=== PATIENT | male | born 1945 | race Caucasian/White ===

== ENCOUNTER 2018-11-24 10:08 | Emergency (ER) | payer MEDICARE, OTHER ==
[~2018-11-24] VITALS: Ht 172.7 cm; Wt 93.9 kg
--- NOTE | 2018-11-25 07:03 | EKG ---
[facility] [address] [place], [place] [address] Signed Atrial fibrillation with rapid ventricular response Abnormal ECG No previous ECGs available Confirmed by FATOUMATA DAVIS MD ([id number]) on 11/25/2018 7:03:13 AM Electronically Signed By: FATOUMATA DAVIS MD 11/25/18 0703 PATIENT NAME: BLANK LIZAMA PRAKASH Electrocardiogram DATE OF : 41 PHYSICIAN: FATOUMATA DAVIS MD REPORT #: [id number] REPORT IS CONFIDENTIAL AND NOT TO BE RELEASED WITHOUT AUTHORIZATION
== END 2018-11-24 15:32 | disposition home or self-care (01) ==
LOC: ED 10:08
DX: I48.91 Unspecified atrial fibrillation (principal); Z87.891 Personal history of nicotine dependence
CPT/HCPCS: 71045; 80053; 83735; 83880; 84484; 85025; 93005; 93010; 96374; 96376; 99285-25

== ENCOUNTER 2018-11-27 11:44 | Inpatient (IN) | payer MEDICARE, OTHER ==
[~2018-11-27] VITALS: Ht 172.7 cm; Wt 89.3 kg
--- OUTSIDE RECORDS SUMMARY | 2018-11-27 12:04 | XMS ---
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 Georgina has no Care Guidelines for this patient. Lety VISIT COUNT (12 MO.) [address] [facility] TOTAL 2 NOTE: Visits indicate total known visits. ED/C VISIT TRACKING (12 MO.) 11/27/2018 11:44 [facility] TYPE: Emergency COMPLAINT: - SOB 11/24/2018 10:08 [facility] TYPE: Emergency COMPLAINT: - BLOOD PRESSURE PROBLEM INPATIENT VISIT TRACKING (12 MO.) No inpatient visits to display in this time frame [email or web address]
--- NOTE | 2018-11-27 15:30 | NUR ---
PT ARRIVED TO ROOM 114 FORM E.D., PT ALERT AND ORIENTED AMBULATED STAND BY ASSIST FROM STRETCHER TO BATHROOM AND BACK TO HOSPITAL BED
--- NOTE | 2018-11-27 16:47 | NUR ---
RN INTRODUCED CHF EDUCATION FOLDER TO PT. DISCUSSED "STOPLIGHT" FRIDGE MAGNET OF SYMPTOMS. PT VERBALIZED THAT HE "DIDN'T LIKE BEING IN THE RED!" RN REINFORCED TEACHING THAT WE WOULD BE TEACING ABOUT CHF DURING HIS ADMISSION.
--- NOTE | 2018-11-27 17:52 | NUR ---
PATIENT UP TO BATHROOM AND BACK TO BED, SBA. IN ROOM. CALL LIGHT IN REACH. NO FURTHER NEEDS AT THIS TIME.
--- NOTE | 2018-11-27 19:38 | NUR ---
REPORT RECEIVED, PT RESTING IN BED, AOX4, APPROPRIATE, NO C/O LIGHT HEADEDNESS OR DIZZINESS, ON TELE 10, PT'S SCHEDULED MEDS GIVEN PER EMAR, EDUCATION PROVIDED TO PATIENT AND FAMILY REGARDING MEDICATIONS. NO REQUESTS AT THIS TIME, CALL LIGHT WITHIN REACH. FALL PRECAUTIONS IN PLACE.
--- NOTE | 2018-11-27 20:35 | NUR ---
PT TRANSFERRED TO CCU PER DR. DOW DUE TO PT'S HR RELATED TO AFIB/RVR, REPORT GIVEN TO LUCAS PATEL IN CCU, QUESTIONS ANSWERED.
--- NOTE | 2018-11-27 20:45 | NUR ---
PT TO CCU PER BED FOR AFIB RVR. HAD RECIEVED ORAL MEDS EARLY PER DR DOW. PT IS ALERT, ORIENTED X3 NO C/O. ACCOMPANIED BY . HR NOW STARTING TO RESPOND TO MEDS WILL HOLD CARDIZEM GTT FOR NOW, AND CONT TO MONITOR HR. LUNGS HAVE SCATTERED EXP WHEEZES. NO SOB AT THIS TIME.
--- NOTE | 2018-11-27 22:10 | NUR ---
HR NOW 88-90'S. RESTING IN BED.
--- NOTE | 2018-11-28 00:20 | NUR ---
AWAKENS EASILY. ASSESSMENT DONE. AMB TO BR TO VOID, HR UP TO 128 WITH THIS ACTIVITY. NO SOB.
--- NOTE | 2018-11-28 01:43 | NUR ---
MEDS GIVEN. INSTRUCTED TO SIT FOR A FEW MOMENTS AT EDGE OF BED BEFORE GETTING UP MEDS MAY DECREASE BP AND COULD CAUSE DIZZYNESS.
--- NOTE | 2018-11-28 02:46 | NUR ---
PT SLEEPING SOUNDLY, SATS DEC TO 79, RT HERE AND IN TO CHECK PT. RT NOTED PT TO HAVE SLEEP APNEA. PT AWAKENED ON OWN AND SATS UP TO 90'S.
--- NOTE | 2018-11-28 04:32 | NUR ---
SLEEPING AT THIS TIME. CONT TO HAVE EPISODES OF APNEA.
[2018-11-28] MEDS ORDERED: METOPROLOL SUCC50 MG PO (07:08)
--- NOTE | 2018-11-28 07:09 | NUR ---
Patient newly diagnosed AFib and started on metoprolol succinate *Med rec completed with pharmacy records and interview with patient and his
--- NOTE | 2018-11-28 07:18 | NUR ---
RESTING IN BED. REPORT TO DAY SHIFT.
--- NOTE | 2018-11-28 07:30 | NUR ---
RECIEVED REPORT ON pt. pt BACK TO BED. BREAKFAST ORDERED NO FURTHER REQUESTS AT THIS TIME. CALL LIGHT WITHIN REACH.
--- NOTE | 2018-11-28 08:03 | NUR ---
ASSESSMENT AND MEDICATIONS DUE. ASSESSMENT DONE. pt ALERT AND ORIENTED. DENIES PAIN AT THIS TIME. MEDICATIONS GIVEN (SEE MAR). pt VERBALIZED WHAT MEDICATIONS WERE FOR. BREAKFAST ARRANGED. CALL LIGHT WITHIN REACH. NO FURTHER REQUESTS AT THIS TIME.
--- NOTE | 2018-11-28 08:43 | NUR ---
CLEARED BREAKFAST TRAY. NO REQUESTS AT THIS TIME. CALL LIGHT WITHIN REACH.
--- NOTE | 2018-11-28 09:03 | NUR ---
MEDICATION GIVEN (SEE MAR). pt VERBALIZED UNDERSTANDING OF MEDICATION SIDE EFFECTS, WILL CALL WHEN NEEDING TO USE TOILET. CALL LIGHT WITHIN REACH. NO REQUESTS AT THIS TIME.
--- NOTE | 2018-11-28 09:45 | NUR ---
CALL LIGHT ON. AMBULATED TO TOILET AND BACK TO BED. CALL LIGHT WITHIN REACH. HR ELEVATED TO 120'S WHEN AMBULATING.
--- NOTE | 2018-11-28 10:23 | NUR ---
CALL LIGHT ON. AMBULATED TO TOILET AND BACK TO BED. CALL LIGHT WITHIN REACH. NO REQUESTS AT THIS TIME.
--- NOTE | 2018-11-28 10:51 | NUR ---
CALLED [facility] FOR RESULTS OF ECHO. TYE REPORTED THAT THE ECHO HAS NOT BEEN RESULTED YET, SEND RESULTS WHEN READY.
--- NOTE | 2018-11-28 11:13 | NUR ---
CALL LIGHT ON. pt AMBULATED TO TOILET AND BACK TO BED. CALL LIGHT WITHIN REACH. pt GAVE PERMISSION FOR DAUGHTER TO RECEIVE UPDATES CONCERNING HIS CONDITION. DAUGHTER'S NAME IS REDDY BETANCOURT, pt UNSURE OF LAST NAME SPELLING.
--- NOTE | 2018-11-28 11:48 | NUR ---
LUNCH ORDERED. CALL LIGHT WITHIN REACH.
--- NOTE | 2018-11-28 12:10 | NUR ---
ASSESSMENT DONE. CRACKLES HEARD IN BASES. NO OTHER CHANGES FROM PRIOR ASSESSMENT. DENIES PAIN. TRANSFERRED TO MED/SURG UNIT.
--- NOTE | 2018-11-28 12:24 | NUR ---
PT RECEIVED FROM CCU. PT SITTING IN CHAIR. PT ON ROOM AIR, LUNG SOUNDS CLEAR, SOB WITH EXERTION. PT SALINE LOCKED. PT TOLERATING CARDIAC DIET, BOWEL TONES ACTIVE, DENIES NAUSEA. PT WITH EMEA TO BLE 2+, DENIES NUMBNESS, CMS INTACT. VSS. PT DNIES OTHER NEEDS AT THIS TIME. ORIENTED TO ROOM. CALL LIGHT WITHIN REACH.
--- NOTE | 2018-11-28 13:30 | NUR ---
PT SITTING IN CHAIR. PT PROVIDED WITH SCHEDULED LASIX, DILTIAZEM AND METOPROLOL. PT DENIES OTHER NEEDS AT THIS TIME.
--- NOTE | 2018-11-28 14:45 | NUR ---
NOTFIED THAT PT HR CONTINUES TO BE ELEVATED AND IRREGULAR, 110-130'S, ORDER TO CONTINUE TO MONITOR.
--- NOTE | 2018-11-28 15:21 | EKG ---
[facility] [address] [place], [place] [address] Signed Atrial fibrillation with rapid ventricular response Abnormal ECG When compared with ECG of 24-NOV-2018 10:33, No significant change was found Confirmed by PRABHJOT DOW DO ([id number]) on 11/28/2018 3:21:48 PM Electronically Signed By: PRABHJOT DOW DO 11/28/18 1521 PATIENT NAME: ALDABLANK RANDLAL Electrocardiogram DATE OF : 41 PHYSICIAN: PRABHJOT DOW DO REPORT #: [id number] REPORT IS CONFIDENTIAL AND NOT TO BE RELEASED WITHOUT AUTHORIZATION
--- NOTE | 2018-11-28 15:25 | EKG ---
[facility] [address] [facility] [place], [place] [address] Signed Atrial fibrillation with rapid ventricular response Abnormal ECG When compared with ECG of 27-NOV-2018 11:54, (Unconfirmed) No significant change was found Confirmed by PRABHJOT DOW DO ([id number]) on 11/28/2018 3:24:51 PM Electronically Signed By: PRABHJOT DOW DO 11/28/18 1525 PATIENT NAME: BLANK LIZAMA PRAKASH Electrocardiogram DATE OF : 41 PHYSICIAN: PRABHJOT DOW DO REPORT #: [id number] REPORT IS CONFIDENTIAL AND NOT TO BE RELEASED WITHOUT AUTHORIZATION
--- NOTE | 2018-11-28 16:15 | NUR ---
PT SHOWERED. PT GIVEN CLEWAN GOWN AND SOCKS
--- NOTE | 2018-11-28 17:13 | NUR ---
PT SITTING IN CHAIR. PT PROVIDED DILTIAZEM AND WARFARIN PER ORDER. EDUCATED ON PURPOSE OF MEDICATIONS RELATED TO NEW DIAGNOSIS OF AFIB. PT DENIES OTHER NEEDS AT THIS TIME. DINNER AT BEDSIDE.
--- NOTE | 2018-11-28 17:35 | NUR ---
PT RECEIVED FROM CCU. PT ON ROOM AIR, LUNG SOUNDS CLEAR. PT ON TELE #5, AFIB, PT WITH HR UP TO 140'S WITH ACTIVITY, DILTIAZEM AND METOPROLOL ADJUSTED. PT INDEPENDENT IN ROOM. IV LASIX X2, VOIDING QS. PT TOLERATING CARDIAC DIET WITH 1800 ML FLUID RESTRICTION. PT WITH EDEMA TO BLE, 2+. SALINE LOCKED.
--- NOTE | 2018-11-28 19:05 | NUR ---
SHIFT REPORT RECEIVED. PATIENT RESTING IN RECLINER. DENIES ANY NEEDS AT THIS TIME. CALL LIGHT IN REACH.
--- NOTE | 2018-11-28 20:30 | NUR ---
PATIENT PROVIDED WITH EVENING MEDICATIONS. PATIENT RESTING IN BED. VS DONE. PATIENT'S HR IRREGULAR 80-90'S. TELE IN PLACE. PATIENT DENIES CHEST PAIN OR SOB. LUNGS ARE MOSTLY CLEAR, SOME FINE CRACKLES IN RLL. TOLERATING ROOM AIR. 2+ EDEMA IN NGA LOWER EXTREMITIES FROM MID PANTOJA DOWN. EXCORIATION ON NGA LOWER EXTREMITIES NOTED, PATIENT STATES IT HAS IMPROVED SLIGHTLY. NO DRAINAGED NOTED, OPEN TO AIR. CMS INTACT. PATIENT DENIES ANY NEEDS AT THIS TIME. CALL LIGHT IN REACH.
--- NOTE | 2018-11-29 00:09 | NUR ---
PATIENT HR IN 70'S AT REST. PATIENT APPEARS TO BE SLEEPING SOUNDLY. RR 18. CALL LIGHT IN REACH.
--- NOTE | 2018-11-29 01:45 | NUR ---
PATIENT CALLED AFTER GETTING UP TO USE THE BATHROOM. VS DONE AND SCHEDULED MEDS PROVIDED. PATIENT DENIES ANY NEEDS. CALL LIGHT IN REACH.
--- NOTE | 2018-11-29 04:39 | NUR ---
PATIENT APPEARS TO BE SLEEPING SOUNDLY. RR 20. TELE, HR 60-70'S IRREGULAR.
--- NOTE | 2018-11-29 06:22 | NUR ---
PATIENT SLEPT THROUGHOUT SHIFT. DENIES PAIN OR SOB. TELE 5, HR IRREGULAR 60-80'S AT REST. INDEPENDENT IN ROOM. URINE OUTPUT QS. VS STABLE. 2+ EDEMA NOTED IN NGA LOWER EXTREMITIES. ENCOURAGED TO ELEAVTE TOLERATED. HEART HEALTHY DIET WITH 1800ML FLUID RESTRICTION.
--- NOTE | 2018-11-29 07:10 | NUR ---
BEDSIDE HANDOFF REPORT RECEIVED FROM VISITOR SERVICES TECHNICIAN RN. PT AMBULATING IN ROOM, TELE #5, HR 90S-100'S. PT DENIES NEEDS AT THIS TIME.
--- NOTE | 2018-11-29 08:30 | NUR ---
PATIENT IS IN THE BATHROOM SHAVING AND BRUSHING HIS TEETH. WARM WASH CLOTH OFFERED AND SHOWER OFFERED. PATIENT REFUSED SHOWER. CALL LIGHT IN REACH NO FURTHER NEEDS AT THIS TIME.
--- NOTE | 2018-11-29 09:00 | NUR ---
PT COMPLETED WITH ZE AMAYA. PT SITTING ON EDGE OF BED. PT DENIES PAIN. LUNG SOUNDS CLEAR, PT ON ROOM AIR. PT ON TELE #5, HR 90-110'S, IRREGULAR. PT DENIES NAUSEA, BOWEL TONES ACTIVE, TOLERATING CARDIAC DIET WITH FLUID RESTRICTION. PT INDEPENDENT IN ROOM. CMS INTACT, EDEMA 1-2+, IMPROVED FROM YESTERDAY, CONCENTRATED TO FEET AND ANKLES. IV LASIX GIVEN. PT DENIES OTHER NEEDS FOR THE DAY. DISCUSSED PLAN OF CARE FOR THE DAY.
--- NOTE | 2018-11-29 09:05 | NUR ---
P.O. medications given per this RN, and student nurse. Medications explained to the patient, including side effects such as dizziness. Pt verbalizes understanding of need for cardiac medications related to his heart rate being "too high" and the "top of my heart not working with the bottom of my heart". Pt able to answer questions appropriately, and can take p.o. medications indedepndently without dificulty in swallowing. Pt also states that he would like his to have the medication instructions as she is the one who will be helping him at home. This RN and the SN will attempt to come back in the room and do more medication education when presents to the hospital.
--- NOTE | 2018-11-29 11:00 | NUR ---
MET WITH PATIENT AND DR DWO IN ROOM. PATIENT LIVES WITH , IS NORMALLY INDEPENDENT AND PLANS TO RETURN HOME AT DISCHARGE. PATIENT IS CURRENTLY IN PROCESS OF CHANGING PCP TO DR DE LA PAZ AND HAS FIRST APPT December. HE DOES HAS APPT WITH DR LEVI 12/11/18 AND WILL KEEP THAT APPT FOLLOW UP FOR THIS HOSPITALIZATION AND SO HE CAN HAVE COVERAGE FOR COUMADIN CLINIC ORDERS. PATIENT DENIES ANY PROBLEMS WITH AMBULATION, DIZZINESS OR SOB. PATIENT DID WALK IN HALLS TODAY AND HAD NO ISSUES. DR DOW DISCUSSED DIAGNOSIS, PLAN AND MEDICATIONS. QUESTIONS ANSWERED. PATIENT HAD HIS ADULT DAUGHTER ON SPEAKER PHONE DURING THIS AND HER QUESTIONS WERE ANSWERED ALSO. DISCHARGE HOME IS ANTICIPATED, DISCUSSED POSSIBLE FOLLOW UP WITH CASE MANAGEMENT THROUGH CHW FROM CLINIC. PATIENT IS WILLING TO DO THIS BY PHONE AFTER DISCHARGE. REFERRAL MADE. NO FURTHER CONCERNS OR QUESTIONS.
--- NOTE | 2018-11-29 11:40 | NUR ---
PT RESTING IN BED. PT GIVEN PO LISINOPRIL AND POTASSIUM PER ORDER. PT WITHOUT BM SINCE TUESDAY, NIO ORDER FOR MAG CITRATE GIVEN. PT DENIES OTHER NEEDS AT THIS TIME. LUNCH AT BEDSIDE.
--- NOTE | 2018-11-29 14:54 | NUR ---
PATIENT ON COUMADIN WHICH IS NEW FOR HIM. I STOPPED IN HIS ROOM TO PROVIDE EDUCATION FOR DIET WHILE TAKING COUMADIN. HIS WAS PRESENT. PATIENT DOES NOT EAT ANY HIGH VITAMIN K FOODS (LEAFY GREENS). HE LIKES ICEBERG LETTUCE. HE TAKES A MVI FOR MEN OVER 50 BUT DOESN'T TAKE IT EVERYDAY. I RECOMMENDED HE DOES TAKE IT EVERYDAY. HANDOUT PROVIDED. THEN WE DISCUSSED WAYS TO EAT A LOWER SODIUM DIET. HE LIKES FRIED ONIONS, POTATOES AND EGGS FOR BREAKFAST WITH GARLIC SALT. I SUGGESTED HE USE GARLIC POWDER INSTEAD. HE SAID HE CAN DO THAT. THEN I MENTIONED EATING LESS SAUSAGE, SAUSAGE GRAVY, BOLOGNA, AND HOT DOGS AND HE SAID HE LOVES THESE FOODS AND DOESN'T WANT TO STOP EATING THEM. HIS DOES ADVERTISING TRAFFIC MANAGER AT HOME, THEY DON'T EAT OUT REGULARLY. SHE HAS DIABETES AND COOKS VEGGIES BUT PATIENT EATS WHAT HE WANTS. I EXPLAINED WHY EATING A LOWER SODIUM DIET IS IMPORTANT, ESPECIALLY IF HE DOES NOT WANT TO END UP BACK IN HERE. PROVIDED A HANDOUT LOW-SODIUM NUTRITION THERAPY WITH FOODS RECOMMENDED AND FOODS NOT RECOMMENDED, PROVIDED A HANDOUT LOW-SODIUM FLAVORINGS, AND LOW-SODIUM GROCERY LIST. PATIENT WON'T BE 100% COMPLIANT, BUT I PROVIDED SOME SIMPLE SUGGESTIONS THAT HE CAN DO RIGHT AWAY TO DECREASE HIS SODIUM INTAKE. MY NAME AND OFFICE NUMBER PROVIDED IN CASE FURTHER QUESTIONS ARISE.
--- NOTE | 2018-11-29 16:19 | NUR ---
PT VOIDIED IN HAT, DARK PINK CLOUDY URINE. MD NOTIFIED, IORDER TO COLLECT UA AND TO DISCUSS COUMADIN DOSE WITH PHARMACIST BEFORE ADMINISTERING EVENING DOSE.
--- NOTE | 2018-11-29 17:00 | NUR ---
DISCUSSED COUMADIN DOSE WITH PHARMACIST SCOTTY, PHARMACIST STATES THAT 5 TO 10 MG OF COUMADIN IS SAFE FOR INR OF 1.1. DISCUSSED WITH DR. DOW, AWAITING URINE SAMPLE, OK TO GIVE 10 MG COUMADIN.
--- NOTE | 2018-11-29 17:37 | NUR ---
PT ALERT/ORIENTED. PT ON ROOM AIR, LUNG SOUNDS CLEAR. PT ON TELE #5, AFIB. PT TOLERATING CARDIAC DIET WITH FLUID RESTRICTION. PT WITH EDEMA BLE 1-2+ IN ANKLES, IMPROVING. PT SALINE LOCKED. INDEPENDENT IN ROOM. PT VOIDING QS, BLOOD IN URINE THIS EVENING, AWAITING URINE SAMPLE. PT HAD BM TODAY.
--- NOTE | 2018-11-29 19:30 | NUR ---
PATIENT IS RESTING IN BED WATCHING TV, GETTING BEDSIDE REPORT FROM DAY SHIFT NURSE.
--- NOTE | 2018-11-29 19:32 | NUR ---
PATIENT IS IN BED SETTING UP WATCHING TV. NO NEEDS AT THIS TIME.
--- NOTE | 2018-11-29 22:25 | NUR ---
PATIENT CONTINUES TO BE AIN A PLEASANT MOOD IS WATCHING THE NEW WITH NO NEEDS AT THIS TIME.
--- NOTE | 2018-11-30 00:30 | NUR ---
PATIENT IS SITTING IN HI-FOWLERS POSITION, GENTLY SNORING, IN NO DISTRESS, EYES CLOSED.
--- NOTE | 2018-11-30 01:25 | NUR ---
PATIENT'S STATUS IS UNCHANGED, STILL HAS EYES CLOSED IN HIGH ANGEL'S POSITIOON GENTLY SNORING.
--- NOTE | 2018-11-30 05:36 | NUR ---
PATIENT REMAINS RESTING QUUIETLY IN FOWLERS POSITION SNORING LIGHTLY. BREATHS 16-18 A MINUTE.
--- NOTE | 2018-11-30 05:38 | NUR ---
PATIENT APPEARS TO HAVE HAD A GOOD NIGHT AND RESTED MOST OF THE EVENING. PATIENT HAS BEEN IN GOOD HUMOR AND IS CURRENTLY GETTING HIS BLOOD DRAWN BY LAB.
--- NOTE | 2018-11-30 07:24 | NUR ---
Certified Heart Failure Nurse Notes: Late entry for visit with patient 11/29/18 Diagnosis: Atrial fibrillation and CHF Boxing Inspector- referral to be made upon DC PCP: Patient states he is establishing with Dr. [facility] and has an appointment already made for December 06 or . EF 35-40% Ansih Inhibitor and Beta Jairo ordered Admit Wt.: 220 lb Today's Wt.: 197 lb Admit BNP: 432 Social support system: Lives with spouse and dog Xavier. Weight monitoring: Scale present in home. Discussed how to weigh daily/ identify when to notify PCP and importance of symptom monitoring. Transportation mode: has own vehicle Diet: Spouse does majority of cooking and the shopping. Has had education today with [facility] stripe marker. Usual physical activity: Yard work and some shopping. Does not participate in any routine cardiovascular exercise. He is concerned that he won't be able to return to routine, discussed initiating progressive walking to build strength. Medication routine: Patient did not offer information on this. Given 7day pill box today to utilize at home. Significance of taking medications emphasized. Has been counseled on minimizing/avoiding use of NSAIDs Tobacco: former Advanced directive: Does not currently have. Patient advised to discuss with PCP. Recommendations prior to discharge: Document ambulation oxygen saturations prior to discharge Absence of orthostatic hypotension. DC weight and BNP less than admit Follow up appointment within 7 days of DC Barriers to self-care include: Knowledge deficit Follow-up plans: Post DC F/u Call . Schedule patient for OP heart failure education PRN Teaching materials have been taken home by spouse. Given [facility] contact information
--- NOTE | 2018-11-30 08:40 | NUR ---
PT SITTING ON EDGE OF BED, JUST RETURNED FROM BATHROOM. PT ON ADELE AIR, LUNG SOUNDS CLEAR. PT ON TELE #5, AFIB, HR 110-130'S, CARDIZEM AND METOPROLOL GIVEN. CMS INTACT, 1+ EDEMA IN LEFT ANKLE. PT DENIES NAUSEA, BOWEL TONES ACTIVE, BM TODAY, TOLERATING ACRDAIAC DIET WITH FLUID RESTRICTION. PT INDEPENDENT IN ROOM. PT CONTINUES TO HAVE CLOUDY PINK URINE, DISCUSSED UTI WITH PT. DISCUSSED PLAN OF CARE FOR THE DAY. PT DENIES OTHER NEEDS AT THIS TIME. PT HOPING TO DC TODAY.
--- NOTE | 2018-11-30 09:43 | NUR ---
PATIENT SITTING UP IN BED WATCHING TV. VITAL SIGNS AND I&O DONE.CALL LIGHT WITHIN REACH. NO OTHER NEEDS AT THIS TIME
[2018-11-30] MEDS ORDERED: CIPROFLOXACIN500 MG PO (12:13)
[2018-11-30] MEDS ORDERED: WARFARIN SODIUM5 MG PO (12:15)
[2018-11-30] MEDS ORDERED: METOPROLOL SUC100 MG PO (12:16)
[2018-11-30] MEDS ORDERED: FUROSEMIDE40 MG PO (12:17)
[2018-11-30] MEDS ORDERED: LISINOPRIL2.5 MG PO (12:17)
[2018-11-30] MEDS ORDERED: DILT-XR120 MG PO (12:17)
[2018-11-30] MEDS ORDERED: ASPIR 8181 MG PO (12:18)
[2018-11-30] MEDS ORDERED: TOPROL XL50 MG PO (13:21)
--- NOTE | 2018-11-30 14:04 | NUR ---
IN PT'S RM, PT IN BM, AND SON IN RM. PT CAME OUT-STATED HE IS READY TO GO. EXPLAINED DC PROCESS, ALL STATED THAT THEY ARE PLEASED WITH CARE THEY HAVE RECEIVED FROM [facility]. EXTENDED A BLESSING, WILL FOLLOW NEEDED
== END 2018-11-30 13:40 | disposition home or self-care (01) | DRG 291 ==
LOC: ED 11:44 → MS 15:07 → CCU 20:38 → MS 11-28 12:15
PROVIDERS: ADMIT Student in an Organized Health Care Education/Training Program
DX: I11.0 Hypertensive heart disease with heart failure (principal); I50.21 Acute systolic (congestive) heart failure; N39.0 Urinary tract infection, site not specified; I48.91 Unspecified atrial fibrillation; I87.8 Other specified disorders of veins; Z66 Do not resuscitate; Z79.899 Other long term (current) drug therapy; Z87.891 Personal history of nicotine dependence
CPT/HCPCS: 36415; 71045; 80048; 80053; 81001; 83735; 83880; 84484; 85025; 85610; 93005; 93010; 93306; 96365; 96375; 96376; 97110; 97116; 97163; 99285-25; J0696; J1940; Q9957

== ENCOUNTER 2019-02-09 17:10 | Inpatient (IN) | payer MEDICARE, OTHER ==
[~2019-02-09] VITALS: Ht 172.7 cm; Wt 80.5 kg
[~2019-02-09 17:10] MED LIST: ASPIR 8181 MG PO; CIPROFLOXACIN500 MG PO; DILT-XR120 MG PO; DILTIAZEM ER120 M2 PO; FUROSEMIDE40 MG PO; LISINOPRIL2.5 MG PO; METOPROLOL SUC100 MG PO; METOPROLOL SUCC50 MG PO; TOPROL XL50 MG PO; WARFARIN SODIUM5 MG PO
--- OUTSIDE RECORDS SUMMARY | 2019-02-09 17:14 | XMS ---
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 Care History Medical/Surgical 11/28/2018 [facility] - Patient is currently established with [facility]. If patient is seen in the ED during business hours. Please contact CHWs at [facility]. Care Recommendation: This patient has had 5 or more Emergency Department visits in the last 12 months.\T\nbsp; Patient requires education on the scope and purpose of the ED as an acute care provider not a Primary Care Provider and should not be utilized for chronic conditions.\T\nbsp; These are guidelines and the provider should exercise clinical judgment when providing care. E.D. VISIT COUNT (12 MO.) 3 [facility] TOTAL 3 NOTE: Visits indicate total known visits. ED/UCC VISIT TRACKING (12 MO.) 02/09/2019 17:11 [facility] TYPE: Emergency COMPLAINT: - DIFFICULTY BREATHING 11/27/2018 11:44 [facility] TYPE: Emergency COMPLAINT: - SOB 11/24/2018 10:08 [facility] TYPE: Emergency COMPLAINT: - BLOOD PRESSURE PROBLEM DIAGNOSES: - Personal history of nicotine dependence - Unspecified atrial fibrillation INPATIENT VISIT TRACKING (12 MO.) 11/27/2018 15:07 [facility] TYPE: Medical Surgical COMPLAINT: - AFID W/RVR DIAGNOSES: - [facility] [place] (current[facility] drug therapy - Do not resuscitate - Urinary tract infection, site not specified - Unspecified atrial fibrillation - Do not resuscitate - Other terminal supervisor (current) drug therapy - Personal history of nicotine dependence - Acute systolic (congestive) heart failure - Personal history of nicotine dependence - Other specified disorders of veins - Other specified disorders of veins - Acute systolic (congestive) heart failure - Urinary tract infection, site not specified - Hypertensive heart disease with heart failure - Hypertensive heart disease with heart failure [email or web address]
--- NOTE | 2019-02-09 21:00 | NUR ---
PT ARRIVED TO UNIT VIA STRETCHER FROM ED. PT ABLE TO SELF TRANSFER TO BED W/O DIFFICULTY. CARDIZEM GTT INFUSING AT 5 MG/HR. PT AAOX4 AND RESPONDING APPROPRIATELY. AFIB ON MONITOR WITH HR 120-130'S. LUNGS CLEAR THROUGHOUT AND MAINTAINING SATURATIONS ON ROOM AIR. BOWEL TONES ACTIVE X4 AND DENIES NAUSEA. NO EDMEA NOTED. PT ORIENTED TO ROOM. EDUCATION ON SAFETY, FALL PREVENTION, MEDICATION, AND PLAN OF CARE.
--- NOTE | 2019-02-09 21:15 | NUR ---
CARDIZEM GTT TITRATED TO 2.5 MG/HR FOR SYSTOLIC LESS THAN 100. WILL CONTINUE TO MONITOR.
--- NOTE | 2019-02-09 23:15 | NUR ---
CARDIZEM GTT TITRATED TO 5 MG/HR AT THIS TIME.
--- NOTE | 2019-02-10 | NUR ---
NO ACUTE CHANGES TO ASSESSMENT. CARDIZEM GTT TITRATED TO 7.5 MG/HR. WILL CONTINUE TO MONITOR.
--- NOTE | 2019-02-10 00:59 | NUR ---
CARDIZEM GTT TITRATED TO 10 MG/HR.
--- NOTE | 2019-02-10 01:49 | NUR ---
po cardizem given. cardizem gtt at 7.5 mg/hr. will continue ro monitor and slowly titrate gtt as tolrated
--- NOTE | 2019-02-10 02:10 | NUR ---
CARDIZEM GTT TITRATED TO 5 MG/HR.
--- NOTE | 2019-02-10 02:34 | NUR ---
CARDIZEM GTT STOPPED AT THIS TIME FOR HR 90'S. WILL CONTINUE TO MONITOR.
--- NOTE | 2019-02-10 04:00 | NUR ---
CARDIZEM GTT STARTED AT 2.5 MG/HR FOR SUSTAINED HR 100-115. LUNGS REMAIN CLEAR IN UPPERS, FINE CRACKLE TO LLL, AND EXPIRATORY WHEEZE TO RLL. NO ADDITIONAL ACUTE CHANGES TO ASSESSMENT.
--- NOTE | 2019-02-10 05:43 | NUR ---
CARDIZEM GTT TITRATED TO 5 MG/HR AT THIS TIME FOR HR 110-120. PT SBA TO BEDSIDE TO USE URINAL. HR INCREASED TO 130-140. WILL CONTINUE TO MONITOR.
--- NOTE | 2019-02-10 06:15 | NUR ---
CARDIZEM GTT TITRATED TO 7.5 MG/HR FOR HR 110-120. WILL CONTINUE TO MONITOR.
--- NOTE | 2019-02-10 06:20 | NUR ---
DR. DOW UPDATED ON PT'S CONDITION. VERBAL ORDER RC'D TO INCREASE LOPRESSOR TO 50MG TID, READ BACK AND VERIFIED.
--- NOTE | 2019-02-10 06:42 | NUR ---
PT RESTED ON AND OFF THROUGHOUT NIGHT. PO CARDIZEM GIVEN AND CARDIZEM GTT TITRATED THROUGHOUT NIGHT, CURRENTLY GTT AT 7.5 MG/HR. LOPRESSOR DOSE INCREASED TO 50 MG TID. PT VOIDING QS. FLUID RESTRICTION IN PLACE.
--- NOTE | 2019-02-10 07:30 | NUR ---
REPORT RECIEVED. DENIES PROBLEMS. BREAKFAST ORDEDED.
[2019-02-10] MEDS ORDERED: CYCLOBENZAPRINE10 MG PO (07:40)
[2019-02-10] MEDS ORDERED: ACETAMINOPHEN-1 EAC1 PO (07:40)
--- NOTE | 2019-02-10 08:00 | NUR ---
ASSESSMENT DONE. TALKED WITH PATIENT ABOUT PLAN OF CARE. PATIENT NEEDS EDUCATIONS ABOUT HIS MEDICATIONS HE IS TO TAKE, ALSO FLUID RESTRICTION AND DIET. CARDIZEM GTT CURRENTLY INFUSING AT 7.5 MG/HR.
--- NOTE | 2019-02-10 09:00 | NUR ---
TOOK BREAKFAST WELL. VOIDING TO URINAL AFTER LASIX 40 MG IV GIVEN. IS STABLE ON FEET, DENIES DIZZINESS.
--- NOTE | 2019-02-10 10:00 | NUR ---
RESTFUL. IS W/O C/O. WATCHING TV.
--- NOTE | 2019-02-10 11:50 | NUR ---
RESTFUL IS W/O C/O. STATES HE FEELS VERY TIRED. CARDIZEM GTT TO 2.5 MG/HR.
--- NOTE | 2019-02-10 12:00 | NUR ---
SITTING UP AT BEDSIDE TO EAT LUNCH.
--- NOTE | 2019-02-10 14:00 | NUR ---
LASIX 80 MG IV GIVEN PER ORDERS. TALKED WITH PATIENT IN DETAIL REGARDING HOW IMPORTANT TAKING HIS MEDICATIONS APPROP IS. THIS NEEDS TO BE REINFORCED OFTEN. IS IN ROOM.
--- NOTE | 2019-02-10 14:02 | EKG ---
[facility] [address] [facility] [place], [place] [address] Signed Atrial fibrillation with rapid ventricular response Nonspecific T wave abnormality Abnormal ECG Confirmed by PRABHJOT DOW DO ([id number]) on 02/10/2019 2:02:02 PM Electronically Signed By: PRABHJOT DOW DO 02/10/19 1402 PATIENT NAME: JASON PATTERSONELBLANK Electrocardiogram DATE OF : 41 PHYSICIAN: PRABHJOT DOW DO REPORT #: [id number] REPORT IS CONFIDENTIAL AND NOT TO BE RELEASED WITHOUT AUTHORIZATION
--- NOTE | 2019-02-10 15:40 | NUR ---
Medications reconciled using RX bottles, pharmacy records and interview with patient's . Per , Dr Jj discontinued diltiazem at last month's visit.
--- NOTE | 2019-02-10 16:00 | NUR ---
HAS BEEN VOIDING TO URINAL FREQUENTLY. URINE IS CLEAR YELLOW. UPON AMBULATION HR 100-144. DENIES SHORTNESS OF BREATH OR DIZZINESS.
--- NOTE | 2019-02-10 19:27 | NUR ---
REPORT TO NEXT SHIFT.
--- NOTE | 2019-02-10 20:10 | NUR ---
Patient up to bathroom, SBA, gait even and steady. Now resting in bed again, breathing unlabored. HR up to 120s with activity. Denies further needs. CAll light within reach.
--- NOTE | 2019-02-10 20:56 | NUR ---
Patient restful watching tv, breathing is even and unlabored, SpO2 97% on room air. Denies needs at this time. Assessment done, alert and oriented x4, follows commands, calls appropriately, HR between 90 and 115, a-fib, BP WNL, peripheral pulses are well felt in all extremities, 2+ pitting edema noted in BLE, more prominent in RLE. Has fine crackles in bases of lungs bilaterally, denies SOB, Abdomen is soft, non-distended, bowel tones active, patient denies senna due to multiple BMs during the day. Voiding QS with urinal, SBA to bathroom, skin grossly intact. IV site flushes well, saline locked. Denies pain at this time. Call light within reach.
--- NOTE | 2019-02-10 22:45 | NUR ---
Resting with eyes closed, breathing is even and unlabored, vitals WNL. Call light within reach.
--- NOTE | 2019-02-11 00:34 | NUR ---
Assisted patient to bathroom, SBA. Now resting in bed again, denies needs, vitals WNL. Assessment done, no acute changes from previous. Call light within reach.
--- NOTE | 2019-02-11 01:45 | NUR ---
Resting with eyes closed, breathing is even and unlabored, vitals WNL, HR well controlled in 80s and 90s, call light within reach.
--- NOTE | 2019-02-11 02:30 | NUR ---
Remains restful with eyes closed, vitals WNL, HR remains unchanged in 80s and 90s. Call light within reach.
--- NOTE | 2019-02-11 03:34 | NUR ---
Up to bathroom, gait remains steady, now in bed again. HR up to 110s with activity, quickly down to 80s and 90s while at rest, denies CP/SOB. Assessment done, no acute changes from previous. Denies further needs at this time. Call light within reach.
--- NOTE | 2019-02-11 06:21 | NUR ---
Patient watching TV, vitals WNL, HR <100, denies needs at this time. Call light within reach.
--- NOTE | 2019-02-11 08:50 | NUR ---
PT IS ALERT AND ORIENTED X4, DENIES PAIN, NAUSEA, AND SOB AT THIS TIME. IV SITE INTACT, NO REDNESS OR SWELLING NOTED, FLUSHES EASILY. PT RAVI 100% OF BREAKFAST.
--- NOTE | 2019-02-11 13:15 | NUR ---
PT ARRIVED TO FLOOR, AMB WITH SBA. ALERT AND ORIENTED. DENIES PAIN, NAUSEA, OR SOB. SATTING 97% ON RA. PT SITTING AT EDGE OF BED TO EAT LUNCH. CALL LIGHT WITHIN REACH.
--- NOTE | 2019-02-11 14:28 | NUR ---
PATIENT RESTING IN BED. VITAL SIGNS AND I&O DONE. CALL LIGHT WITHIN REACH. NO OTHER NEEDS AT THIS TIME
--- NOTE | 2019-02-11 15:04 | NUR ---
PT SITTING IN BED WATCHING TV. DENIES NEEDS OR CONCERNS AT THIS TIME. CALL LIGHT WITHIN REACH.
--- NOTE | 2019-02-11 16:59 | NUR ---
pt sitting up in bed watching tv. independent in room. denies needs or concerns at this time. call light within reach.
--- NOTE | 2019-02-11 17:05 | NUR ---
PATIENT RESTING IN BED. VITAL SIGNS AND I&O DONE. CALL LIGHT WITHIN REACH. NO OTHER NEEDS AT THIS TIME
--- NOTE | 2019-02-11 19:10 | NUR ---
ASSUMED CARE, BEDSIDE REPORT CALL LIGHT IN REACH - DENIES NEEDS. CONFIRMED FLUID LEFT FOR SHIFT.
--- NOTE | 2019-02-11 21:20 | NUR ---
VITALS AND I&OS DONE AND CHARTED. PER PT REQUEST I GAVE HIM DECAF COFFEE. BEDSIDE TABLE AND CALL LIGHT IN REACH.
--- NOTE | 2019-02-11 21:30 | NUR ---
ASSESSMENT COMPLETE - TEACHING MATERIALS GIVEN TO PT - AT BEDSIDE, NOT REALLY INTERESTED AT THIS TIME, BUT NICE. DENIES NEEDS - DECLINED STOOL SOFTNER. TELE ON.
--- NOTE | 2019-02-11 21:36 | NUR ---
ROUNDED CHARGE. PT RESTING IN BED. DECAF COFFEE PROVIDED REQUESTED. NO COMMENTS OR CONCERNS AT THIS TIME. CALL LIGHT IN REACH.
--- NOTE | 2019-02-12 02:36 | NUR ---
adjusted tele - new stickers. pt awake - void wnl. BP med given with sip of water. denies needs.
--- NOTE | 2019-02-12 09:00 | NUR ---
PT SITTING UP IN BED WATCHING TV. ATE 100% OF BREAKFAST, RAVI WELL. FOLLOWING FLUID RESTRICTION WELL. PT DENIES PAIN OR SOB. ALERT AND ORIENTED. INDEPENDENT IN ROOM. CALL LIGHT WITHIN REACH.
--- NOTE | 2019-02-12 11:36 | NUR ---
PT SITTING AT EDGE OF BED. DENIES NEEDS OR CONCERNS AT THIS TIME. CALL LIGHT WITHIN REACH.
--- NOTE | 2019-02-12 12:29 | NUR ---
PT APPEARS TO BE SLEEPING SOUNDLY, WILL COME BACK LATER
--- NOTE | 2019-02-12 13:34 | NUR ---
PT RESTING IN BED. PT REFUSED SHOWER WOULD LIKE TO WAIT TILL TOMORROW.
--- NOTE | 2019-02-12 14:42 | NUR ---
PT SITTING IN BED WATCHING TV. DENIES NEEDS OR CONCERNS AT THIS TIME. INDEPENDENT IN ROOM. CALL LIGHT WITHIN REACH.
--- NOTE | 2019-02-12 16:09 | NUR ---
PT SITTING IN BED WATCHING TV. REPORTS HAVING GONE IN BATHROOM AND DID AM CARES INDEPENDENTLY (SHAVED FACE, BRUSHED TEETH, ETC.) AT BEDSIDE. CALL LIGHT WITHIN REACH.
--- NOTE | 2019-02-12 20:40 | NUR ---
COOP WITH ASSESSMENT, NO C/O PAIN. CONTINUES ON FLUID RESTRICTION. VOIDING QS. WATCHING TV. CALL LIGHT AT BEDSIDE
--- NOTE | 2019-02-13 05:42 | NUR ---
AWAKE, WALKING IN ROOM, VOIDING QS. DAILY WEIGHT 177.5# TODAY. CONTINUES ON FLUID RESTRICTION 1800CC. STARTES "I FEEL SO MUCH BETTER", ON ROOM AIR, NO C/O PAIN. CALL LIGHT AND FLUIDS AT BEDSIDE
--- NOTE | 2019-02-13 09:35 | NUR ---
PT SITTING UP IN BED WATCHING TV. ATE 100% OF BREAKFAST, RAVI WELL. COMPLIANT WITH FLUID RESTRICTION. ALERT AND ORIENTED. DENIES PAIN OR SOB AT THIS TIME. INDEPENDENT IN ROOM. CALL LIGHT WITHIN REACH.
--- NOTE | 2019-02-13 11:24 | NUR ---
PT RESTING IN BED. APPEARS TO BE SLEEPING. EYES CLOSED, RESP EVEN AND UNLABORED.
[2019-02-13] MEDS ORDERED: DILTIAZEM 24HR120 M1 PO (11:44)
[2019-02-13] MEDS ORDERED: FUROSEMIDE80 MG PO (11:46)
[2019-02-13] MEDS ORDERED: TOPROL XL50 MG PO (11:46)
[2019-02-13] MEDS ORDERED: WARFARIN SODIUM5 MG PO (11:47)
[2019-02-13] MEDS ORDERED: POTASSIUM CHLO20 ME1 PO (11:49)
--- NOTE | 2019-02-13 12:15 | NUR ---
PT SITTING AT EDGE OF BED EATING LUNCH. DISCUSSED DISCHARGE INSTRUCTIONS WITH PT AND . IV DC'D. PT DRESSED INDEPENDENTLY.
--- NOTE | 2019-02-13 17:26 | NUR ---
RECIEVED FAX CONFIRMATION OF FAX SENT TO [facility].
--- NOTE | 2019-02-13 17:28 | NUR ---
FAXED CHART NOTES INCLUDING FACE SHEET, ORDER, H AND P, DC SUMMARY TO [facility].
== END 2019-02-13 12:47 | disposition home health service (06) | DRG 308 ==
LOC: ED 17:10 → CCU 20:16 → MS 02-11 13:10
PROVIDERS: ADMIT Student in an Organized Health Care Education/Training Program
DX: I48.91 Unspecified atrial fibrillation (principal); I50.23 Acute on chronic systolic (congestive) heart failure; I11.0 Hypertensive heart disease with heart failure; G89.29 Other chronic pain; Z87.891 Personal history of nicotine dependence; Z79.01 Long term (current) use of anticoagulants; Z79.899 Other long term (current) drug therapy; Z91.11 Patient's noncompliance with dietary regimen; Z91.14 Patient's other noncompliance with medication regimen
CPT/HCPCS: 36415; 71045; 80048; 80053; 83735; 83880; 84484; 85025; 85610; 93005; 93010; 96374; 96375; 99285-25; J1940

== ENCOUNTER 2020-03-10 20:09 | Emergency (ER) | payer MEDICARE, OTHER ==
[~2020-03-10] VITALS: Ht 172.7 cm; Wt 80.7 kg
--- OUTSIDE RECORDS SUMMARY | ~2020-03-10 | XMS | Encounter Summary ---
Demographics + + + | Address | [address] | | | [place] [address] | + + + | Home Phone | | + + + | Preferred Language | Unknown | + + + | Marital Status | | + + + | Restorationist Affiliation | Unknown | + + + | Race | Unknown | + + + | Ethnic Group | Unknown | + + + Author + + + | Author | [facility] | | | and [facility] | + + + | Organization | [facility] | | | and [facility] | + + + | Address | Unknown | + + + | Phone | Unavailable | + + + Support + + +---------+ + | Name | Relationship | Address | Phone | + + +---------+ + | Wendi Lambert | ECON | Unknown | | + + +---------+ + Care Team Providers + +------+ + | Care Electronic Warfare Specialist Name | Role | Phone | + +------+ + | Josafat Steve PCP | | + +------+ + Reason for Visit +--------+--------+ + | Reason | Onset | Comments | | | Date | | +--------+--------+ + | Other | 03/05/ | plan of care | | | 2020 | | +--------+--------+ + Encounter Details +--------+ + + + + | Date | Type | Department | Care Team | Description | +--------+ + + + + | 03/05/ | Telephone | [facility] | Noreen Rosario | Other (plan of care) | | 2020 | | CARDIOLOGY [address] | | | | [place], | [address] [place] | | | | | [place] [address] | [place] [address] | | | | | [phone] | [phone] | | | | | | | | +--------+ + + + + Social History + +-------+ +--------+ + | Tobacco Use | Types | Packs/Day | Years | Date | | | | | Used | | + +-------+ +--------+ + | Former Smoker | | | | Quit: 07/09/2012 | + +-------+ +--------+ + + +---+---+---+ | Smokeless Tobacco: | | | | | Never Used | | | | + +---+---+---+ + + +---------+ + | Alcohol Use | Drinks/Week | oz/Week | Comments | + + +---------+ + | Not Currently | | | | + + +---------+ + + + + | Sex Assigned at | Date Recorded | | | | + + + | Not on file | | + + + documented as of this encounter Miscellaneous Notes Telephone Encounter - Madina Silva RN - 03/05/2020 9:19 AM PDTPatient notified, wi call primary care to schedule appointment and get a medi set for his medication. Transfer red to scheduling to schedule follow up with Dr Sweeney ..................................... .....Madina Silva RN on 03/05/20 at 9:26 AM PDT elephone Encount er - Lamar Forte RN - 03/05/2020 7:59 AM PDTAttempted to contact patient, no answer, no voicemail ...........................................Lamar Forte, RN, on 03/05/20 at 7:59 AM PDT elephone Encounter - Lamar Forte RN - 03/05/2020 7:58 AM PDT----- Message from Noreen Rosario PA-C sent at 03/05/2020 7:06 AM PDT ----- Please ensure patient has a follow up appointment, preferably with Dr. Sweeney after his ech ocardiogram in March. Also, please remind him he is to see his primary care physician before that time, and also get a pill box to help him remember to take his pills. (this was all discussed in our recen t appointment) documented in this e ncounter Plan of Treatment +--------+ + + + + | Date | Type | Specialty | Care Team | Description | +--------+ + + + + | 04/02/ | Appointment | Radiology | Noreen Rosario | | | 2019 | | | [address] | | | | | | [address] [place] | | | | | | [place] [address] | | | | | | [phone] | | | | | | | | +--------+ + + + + | 04/08/ | Office | Cardiology | Del Sweeney | | 2019 | Visit | | MD Anam Puentes [address] | | | | | | [address] [place] | | | | | | [place] [address] | | | | | | [phone] | | | | | | | | +--------+ + + + + documented as of this encounter Visit Diagnoses Not on filedocumented in this encounter"
--- OUTSIDE RECORDS SUMMARY | ~2020-03-10 | XMS | Encounter Summary ---
Demographics + + + | Address | [address] | | | [place] [address] | + + + | Home Phone | | + + + | Preferred Language | Unknown | + + + | Marital Status | | + + + | Mandaeism Affiliation | Unknown | + + + | Race | Unknown | + + + | Ethnic Group | Unknown | + + + Author + + + | Author | [facility] | | | and Ernestoana | + + + | Organization | [facility] | | | and Ernestoana | [...] Team Providers + +------+ + | Care It Help Desk Manager Name | Role | Phone | + +------+ + | Josafat Steve | PCP | | + +------+ + Reason for Referral Diagnostic/Screening (Routine) +--------+--------+ + + + + | Status | Reason | Specialty | Diagnoses / | Referred By | Referred To | | | | | Procedures | Contact | Contact | +--------+--------+ + + + + | Closed | | Radiology | Diagnoses | Maxood, | [facility] | | | | | Atrial | Del | [address] | | | | | fibrillation | MD Dhaval | [place], | | | | | , | [address] | [place] | | | | | unspecified | [place] | [address] | | | | | type ([facility]) | INGRID ALDRIDGE | Phone: | | | | | Chronic | [address] | [phone] | | | | | systolic | Phone: | Fax: | | | | | congestive | [phone] | [phone] | | | | | heart | Fax: | | | | | | failure | [phone] | | | | | | ([facility]) | | | | | | | Procedures | | | | | | | ECHO | | | | | | | Complete | | | +--------+--------+ + + + + Reason for Visit + + + | Reason | Comments | + + + | New Patient | | + + + Evaluate & Treat (Routine) +--------+--------+ + + + + | Status | Reason | Specialty | Diagnoses / | Referred By | Referred To | | | | | Procedures | Contact | Contact | +--------+--------+ + + + + | Closed | | Cardiology | Diagnoses | Zahra, | [facility] | | | | | New onset | Del | Cardiology | | | | | a-fib ([facility]) | MD Dhaval | [address] | | | | | Procedures | [address] | [place], | | | | | VIDEOTAPE OPERATOR | [place] | [place] | | | | | | [place], [place] | [address] | | | | | | [address] | Phone: | | | | | | Phone: | [phone] | | | | | | [phone] | Fax: | | | | | | Fax: | [phone] | | | | | | [phone] | | +--------+--------+ + + + + Encounter Details +--------+---------+ + + + | Date | Type | Department | Care Team | Description | +--------+---------+ + + + | 07/09/ | Office | [facility] [place] | Antonio Houser | Atrial fibrillation, | | 2019 | Visit | CARDIOLOGY [address] | MD Dhaval [address] | unspecified type | | | | [address] [place], | [address] [place] | ([facility]) (Primary Dx); | | | | [place] [address] | [place] [address] | Essential | | | | [phone] | [phone] | hypertension; | | | | | | Chronic systolic | | | | | | congestive heart | | | | | | failure (HCC); BONDS | | | | | | (dyspnea on | | | | | | exertion) | +--------+---------+ + + + Social History + +-------+ [...] + + documented as of this encounter Last Filed Vital Signs + + + + + | Vital Sign | Reading | Time Taken | Comments | + + + + + | Blood Pressure | 128/84 | 07/09/2019 11:20 AM | | | | | PST | | + + + + + | Pulse | 104 | 07/09/2019 11:20 AM | irregular | | | | PST | | + + + + + | Temperature | - | - | | + + + + + | Respiratory Rate | 20 | 07/09/2019 11:20 AM | | | | | PST | | + + + + + | Oxygen Saturation | - | - | | + + + + + | Inhaled Oxygen | - | - | | | Concentration | | | | + + + + + | Weight | 89.2 kg (196 lb 10.4 | 07/09/2019 11:20 AM | | | | oz) | PST | | + + + + + | Height | 175.3 cm (5' 9") | 07/09/2019 11:20 AM | | | | | PST | | + + + + + | Body Mass Index | 29.04 | 07/09/2019 11:20 AM | | | | | PST | | + + + + + documented in this encounter Patient Instructions Patient Instructions Madina Silva RN - 07/09/2019 11:30 AM PST Holter Monitor : 24 hour Date: Check-In Time: Where to Check in: Echo: Date: Check-In Time: Where to Check In: Follow up appointment: 1-2 months Provider: Odell House MD Date: Check-In Time: documented in this encounter Progress Notes Del House MD - 07/09/2019 11:30 AM PSTFormatting of this note might be differe nt from the original. PATIENT NAME: Griffin Lambert : 1945: AGE: 74 y.o. REFERRED BY: In System Provider Not PRIMARY CARE: Timothy Carrion MD CARDIOLOGY OFFICE VISIT Date of Service: 07/09/19 HISTORY OF PRESENT ILLNESS: Griffin Lambert is a 74 y.o. male with a history of heart failure and persistent atrial fibrillation. He is being seen today for further consultation. He is referred by In System Provider Not for further evaluation given recent hospitalizatio n for atrial fibrillation with rapid ventricular rate. He was started on warfarin therapy a s well as rate control therapy with long-acting diltiazem and metoprolol and was discharged. He was also felt to be in underlying heart failure with exertional dyspnea and elevated BN P's at that time. He feels that this has improved since but does admit to medical noncompli ance. He has been checking his INR is locally at [facility] Coumad[facility] clinic. He has n o known history of CAD or myocardial infarction, stroke or TIAs. He denies problems such as orthopnea, PND, or lower extremity edema, or any palpitations, l ightheadedness, or syncope. He has had no constitutional symptoms. MEDICAL, SURGICAL, AND PERSONAL HISTORY Past Medical History: Diagnosis Date Atrial fibrillation (HCC) Chronic systolic congestive heart failure (HCC) Essential hypertension assisted (current) use of anticoagulants Prostate hypertrophy History reviewed. No pertinent surgical history. Family History Problem Relation Age of Onset Cancer Mother Cancer Father Family Status Relation Name Status Mother (Not Specified) Father (Not Specified) Social History Socioeconomic History Marital status: Spouse name: Not on file Number of children: Not on file Years of education: Not on file Highest education level: Not on file Tobacco Use Smoking status: Former Smoker Last attempt to quit: 07/09/2012 Years since quittin.0 Smokeless tobacco: Never Used Substance and Sexual Activity Alcohol use: Not Currently Drug use: Never CURRENT MEDICATIONS Current Outpatient Medications Medication Sig Dispense Refill CARTIA XT 240 MG 24 hr capsule TAKE 1 CAPSULE BY MOUTH IN THE MORNING ON AN EMPTY STOMA CH 5 cyclobenzaprine (FLEXERIL) 10 mg tablet Take 10 mg by mouth 3 (three) times daily. 5 doxazosin (CARDURA XL) 4 MG 24 hr tablet Take 4 mg by mouth daily (with breakfast). furosemide (LASIX) 20 mg tablet Take 60 mg by mouth daily. 1 lisinopril (PRINIVIL,ZESTRIL) 2.5 MG tablet (Patient taking differently: Take 2.5 mg b y mouth Daily.) 3 metoprolol succinate (TOPROL-XL) 50 mg 24 hr tablet TAKE 4 TABLETS BY MOUTH ONCE DAILY 1 potassium chloride (KLOR-CON M20) 20 mEq ER tablet Take 20 mEq by mouth daily. 0 warfarin (COUMADIN) 5 mg tablet TAKE 1 & 1 2 (ONE & ONE HALF) TABLETS BY MOUTH ONCE BRITTNEY LY ON MON TUE AND FRI TAKE 1 TABLET ONCE A DAY ON ALL OTHER DAYS 0 No current facility-administered medications for this visit. ALLERGIES No Known Allergies ROS I have reviewed the Review of Systems form dated today and scanned into the media tab. OBJECTIVE: PHYSICAL EXAM BP 128/84 | Pulse 104 Comment: irregular | Resp 20 | Ht 1.753 m (5' 9") | Wt 89.2 kg (19 6 lb 10.4 oz) | BMI 29.04 kg/m Physical Exam Constitutional: He is oriented to person, place, and time. He appears well-developed and we ll-nourished. HENT: Head: Normocephalic. Eyes: No scleral icterus. Neck: Normal carotid pulses and no JVD present. Carotid bruit is not present. Cardiovascular: S1 normal, S2 normal, normal heart sounds, intact distal pulses and normal pulses. An irregularly irregular rhythm present. Tachycardia present. PMI is not displaced. Exam reveals no gallop and no midsystolic click. No murmur heard. Pulses: Carotid pulses are 2+ on the right side and 2+ on the left side. Radial pulses are 2+ on the right side and 2+ on the left side. Dorsalis pedis pulses are 2+ on the right side and 2+ on the left side. Pulmonary/Chest: Effort normal and breath sounds normal. No accessory muscle usage. No resp iratory distress. He has no wheezes. He has no rhonchi. He has no rales. Abdominal: Soft. Normal aorta and bowel sounds are normal. He exhibits no abdominal bruit. There is no hepatosplenomegaly. There is no tenderness. Musculoskeletal: General: No edema. Neurological: He is alert and oriented to person, place, and time. Gait normal. Skin: Skin is warm and dry. No cyanosis. Nails show no clubbing. Psychiatric: He has a normal mood and affect. His mood appears not anxious. He does not exh ibit a depressed mood. Vitals reviewed. ECG: Reviewed by me today notable for atrial fibrillation with rapid ventricular rate, hear t rate 105, nonspecific T wave flattening diffusely. LAB RESULTS: LIPID No results found for: CHOL, TRIG, HDL, LDL, CHOLHDL, LDLEX, HDLEX, TRIGEX, CHOLEX CHEMISTRY Lab Results Component Value Date GLUEX 92 02/13/2019 NAEX 135 02/13/2019 KEX 3.4 02/13/2019 CLEX 95 02/13/2019 CO2EX 30 02/13/2019 EGFREX 57 02/13/2019 CREEX 1.23 02/13/2019 HEMATOLOGY No results found for: WBC, WBCEX, HGB, HGBEX, HCT, HCTEX, PLT, PLTEX I reviewed records from [facility] for hospitalization,including H&P, Discharge Summary and lab reports on 02/13/2019 and PCP note 04/17/2019. ASSESSMENT: 1. Persistent atrial fibrillation - patient is on a robust dose of both long-acting diltia zem and metoprolol, which can be further uptitrated if needed. He admits to noncompliance i ncluding in the recent past and he demonstrates a suboptimal rate control today. He states that he did not take his medications this morning. We discussed at length importance of bet ter medical compliance. I will have him undergo a Holter monitor prior to his next visit to better determine adequacy of his rate control. He would benefit from indefinite anticoagulation therapy. [facility]. He may benefit from conversion to a NOAC - I have supplied him with a li st and he will inquire into their insurance coverage. 2. Heart failure - this was noticed during his recent presentation to the emergency room w ith tachycardia and it was attributed at that time to poor rate control. Once better rate c ontrol is established, I will have him undergo an echocardiogram to rule out significant car diomyopathy and regional wall motion abnormalities. If the latter is detected, consideratio n could be given to further work-up for occult CAD. PLAN: 1. Echocardiogram. 2. Holter monitor. 3. Medical compliance reinforced. 4. Continue current medications for now. Consider conversion of warfarin to NOAC. 5. Consider future testing for occult CAD. 6. Follow-up visit in a few weeks. Portions of this report were transcribed using voice recognition software. Every effort wa s made to ensure accuracy; however, inadvertent computerized correctional captain errors may be pre sent. Electronically signed by: Denisse House MD PhD FACC 07/09/2019 documented in t his encounter Plan of Treatment +--------+ + + + + | Date | Type | Specialty | Care Team | Description | +--------+ + + + + | 04/02/ | Appointment | Radiology | Noreen Rosario | | 2019 | | | TOBIN [address] | | | | | | [address] [place] | | | | | | [place] [address] | | | | | | [phone] | | | | | | | | +--------+ + + + + | 04/08/ | Office | Cardiology | Del House | | | 2019 | Visit | | MD Anam Puentes W | | | | | | [address] [place] | | | | | | [place] [address] | | | | | | [phone] | | | | | | | | +--------+ + + + + documented as of this encounter Procedures + +--------+ + + + | Procedure Name | Priori | Date/Time | Associated Diagnosis | Comments | | | ty | | | | + +--------+ + + + | ECG 12 LEAD | Routin | 07/09/2019 | Atrial | Results for this | | | e | 11:36 AM | fibrillation, | procedure are in the | | | | PST | unspecified type | results section. | | | | | (HCC) Essential | | | | | | hypertension | | + +--------+ + + + documented in this encounter Results ECHO Complete (12/05/2019 1:00 PM PDT) + +--------+ + + + | Component | Value | Ref Range | Performed | Pathologist | | | | | At | Signature | + +--------+ + + + | LA volume | 81.41 | mL | [facility] | | + +--------+ + + + | Ascending | 2.88 | cm | [facility] | | | aorta | | | | | + +--------+ + + + | MV Area by | 6.26 | cm2 | [facility] | | | P 1/2 | | | | | | method | | | | | + +--------+ + + + | LVOT | 1.96 | cm | [facility] | | | diameter | | | | | + +--------+ + + + | LVOT peak | 56.79 | cm/s | [facility] | | | jolene | | | | | + +--------+ + + + | AV peak jolene | 131.07 | cm/s | [facility] | | + +--------+ + + + | AV peak | 6.87 | mmHg | [facility] | | | gradient | | | | | + +--------+ + + + | MV Pressure | 35.16 | msec | [facility] | | | 1/2 time | | | | | + +--------+ + + + | LA Volume | 40 | mL/m2 | [facility] | | | Index | | | | | + +--------+ + + + | AV LVOT | 1.33 | mmHg | [facility] | | | Peak | | | | | | Gradient | | | | | + +--------+ + + + | TR Peak | 24 | mmHg | [facility] | | | Gradient | | | | | + +--------+ + + + | TR Velocity | 246.94 | cm | [facility] | | + +--------+ + + + | MV | 653.87 | cm/s2 | [facility] | | | Deceleratio | | | | | | n [place] | | | | | + +--------+ + + + | MV | 121.25 | msec | [facility] | | | Deceleratio | | | | | | n Time | | | | | + +--------+ + + + | MV E/A | 880.89 | | [facility] | | | Ratio | | | | | + +--------+ + + + | MV Peak | 0.09 | cm/s | [facility] | | | A-Wave | | | | | + +--------+ + + + | MV Peak | 79.28 | cm/s | [facility] | | | E-Wave | | | | | + +--------+ + + + | RA Area | 18.99 | cm2 | [facility] | | + +--------+ + + + | LA Area | 24.29 | cm2 | [facility] | | + +--------+ + + + | Vitals | 155 | | [facility] | | | Heart Rate | | | | | | Rest | | | | | + +--------+ + + + | Vitals BP | 120 | | [facility] | | | Systolic | | | | | + +--------+ + + + | Vitals BP | 91 | | [facility] | | | Diastolic | | | | | + +--------+ + + + | Vitals | 175.3 | | [facility] | | | Height | | | | | + +--------+ + + + | Vitals | 89.20 | | [facility] | | | Weight | | | | | + +--------+ + + + | Vitals BSA | 2.05 | | [facility] | | + +--------+ + + + | Vitals BMI | 29.04 | | [facility] | | + +--------+ + + + | Aortic Root | 3.5 | cm | [facility] | | | Diameter | | | | | + +--------+ + + + | LV | 20 | % | [facility] | | | Addison's | | | | | | Biplane EF | | | | | + +--------+ + + + | LVEF-TTE | 20 | | [facility] | | | TRANSTHORAC | | | | | | IC ECHO | | | | | + +--------+ + + + + + | Specimen | + + | | + + + +-------- -------+ | Narrative | Perform ed At | + +-------- -------+ | Transthoracic | [facility] | | Echocardiography Report (TTE) Demographics Patient Name | | | ALDA PARSON Room Number PRAKASH | | | Patient Number [id number] Date of Study | | | 12/05/2019 Visit Number [id number] Referring Physician | | | DHAVAL HOUSE MD | | | Liquor Inspector ROSEANN WEEKS [facility] Number Date of | | | 1945 Interpreting DHAVAL HOUSE MD | | | Physician Age | | | 74 year(s) Nurse Gender Male | | | Stress Instruction Dean Procedure Type of Study TTE | | | procedure:ECHO Complete. Procedure DateDate: 12/05/2019 Start: 12:36 | | | PM Study Location: Echo LabTechnical Quality: Limited visualization | | | Indications:Atrial fibrillation, chronic/permanent I48.2. Patient | | | Status: Routine Height: 69 inches Weight: 196 pounds BSA: 2.05 m^2 | | | BMI: 28.94 kg/m^2 Rhythm: Atrial fibrillation HR: 155 bpm BP: 120/91 | | | mmHg Conclusions Summary Left ventricle is normal in size with | | | severe systolic dysfunction in the context of underlying irregular | | | tachycardia. LVEF is estimated in the range of 20-25%. Structurally | | | normal tricuspid valve with trace insufficiency and peak velocity | | | consistent with RVSP 29-34 mmHg. Right atrium is mild to moderately | | | enlarged. Moderate to severe RV enlargement with reduced systolic | | | function. Signature | | | | | | Electronically signed by DHAVAL HOUSE MD (Interpreting physician) on | | | 12/06/2019 at 02:06 PM | | | | | | Structures Left Atrium LA Volume/Index: 81.41 ml /40m^2 | | | LA Area: 24.29 cm^2 Left Atrium Findings Left atrium is mildly | | | enlarged. Left Ventricle EF Estimated: 20% EF Calculated: 20% LVOT | | | Diameter: 1.96 cm Left Ventricle Findings Left ventricle is normal in | | | size with severe systolic dysfunction in the context of underlying | | | irregular tachycardia. LVEF is estimated in the range of 20-25%. | | | Right Atrium RA Area: 18.99 | | | cm^2 Right Atrium Findings Right atrium is mild to moderately | | | enlarged. Right Ventricle Right Ventricle Findings Moderate to | | | severe RV enlargement with reduced systolic function. | | | MiscellaneousAorta Aortic Root: 3.5 cm Ascending Aorta: 2.88 cm LVOT | | | Diameter: 1.96 cm Miscellaneous FindingsMeasurements and calculations | | | provided in the report sections maybeincomplete. Additional m-mode, | | | 2D, Doppler, Doppler tissue, strain, andother hemodynamic assessments | | | performed and documented within the imageviewer. Pericardium | | | Pericardial Effusion Findings No evidence of pericardial effusion. | | | Pleura Pleural Effusion Findings No evidence of pleural effusion. | | | Valves Mitral Valve Peak E-Wave: 79.28 cm/s Peak | | | A-Wave: 0.09 cm/s P1/2t: 35.2 msec E/A | | | Ratio: 880.89 | | | Deceleration Time: 121.3 msec Area (PHT): 6.26 cm^2 Mitral Valve | | | Findings Structurally normal mitral valve with trace insufficiency. | | | Aortic Valve Peak Velocity: 131.07 cm/s Peak Gradient: 6.87 mmHg | | | Aortic Valve Findings Aortic valve is trileaflet without significant | | | stenosis or regurgitation. Tricuspid Valve TR Velocity: 246.94 cm/s | | | TR Gradient: 24.39 mmHg Tricuspid Valve Findings | | | Structurally normal tricuspid valve with trace insufficiency and peak | | | velocity consistent with RVSP 29-34 mmHg. Pulmonic Valve Pulmonic | | | Valve Findings Normal pulmonic valve structure and function. Normal | | | pulmonary valve and RVOT flow by color and Doppler flow imaging. LVOT | | | Peak Velocity: 56.79 cm/s Peak Gradient: 1.33 mmHg LVOT Diameter: | | | 1.96 cm | | |Structures | | | | | | Left Atrium | | | | | | LA Volume/Index: 81.41 ml /40m^2 LA Area: 24.29 cm^2 | | | | | | Left Atrium Findings | | | Left atrium is mildly enlarged. | | | | | | Left Ventricle | | | | | | EF Estimated: 20% | | | EF Calculated: 20% | | | | | | LVOT Diameter: 1.96 cm | | | | | | Left Ventricle Findings | | | Left ventricle is normal in size with severe systolic dysfunction in the | | | context of underlying irregular tachycardia. LVEF is estimated in the | | | range of 20-25%. | | | | | | Right Atrium | | | | | | RA Area: 18.99 cm^2 | | | | | | Right Atrium Findings | | | Right atrium is mild to moderately enlarged. | | | | | | Right Ventricle | | | | | | Right Ventricle Findings | | | Moderate to severe RV enlargement with reduced systolic function. | | | | | |Miscellaneous | | |Aorta | | | | | | Aortic Root: 3.5 cm | | | Ascending Aorta: 2.88 cm | | | LVOT Diameter: 1.96 cm | | | | | |Miscellaneous Findings | | |Measurements and calculations provided in the report sections maybe | | |incomplete. Additional m-mode, 2D, Doppler, Doppler tissue, strain, and | | |other hemodynamic assessments performed and documented within the image | | |viewer. | | | | | | Pericardium | | | | | | Pericardial Effusion Findings | | | No evidence of pericardial effusion. | | | | | | Pleura | | | | | | Pleural Effusion Findings | | | No evidence of pleural effusion. | | | | | |Valves | | | | | | Mitral Valve | | | | | | Peak E-Wave: 79.28 cm/s Peak A-Wave: 0.09 cm/s | | | P1/2t: 35.2 msec E/A Ratio: 880.89 | | | Deceleration Time: 121.3 msec | | | Area (PHT): 6.26 cm^2 | | | | | | Mitral Valve Findings | | | Structurally normal mitral valve with trace insufficiency. | | | | | | Aortic Valve | | | | | | Peak Velocity: 131.07 cm/s | | | Peak Gradient: 6.87 mmHg | | | | | | Aortic Valve Findings | | | Aortic valve is trileaflet without significant stenosis or regurgitation. | | | | | | Tricuspid Valve | | | | | | TR Velocity: 246.94 cm/s TR Gradient: 24.39 mmHg | | | | | | Tricuspid Valve Findings | | | Structurally normal tricuspid valve with trace insufficiency and peak | | | velocity consistent with RVSP 29-34 mmHg. | | | | | | Pulmonic Valve | | | | | | Pulmonic Valve Findings | | | Normal pulmonic valve structure and function. Normal pulmonary valve and | | | RVOT flow by color and Doppler flow imaging. | | | | | | LVOT | | | | | | Peak Velocity: 56.79 cm/s | | | Peak Gradient: 1.33 mmHg | | | LVOT Diameter: 1.96 cm | | | | | + +-------- -------+ + + | Procedure Note | + + | Gerry, Rad Results In - 12/06/2019 2:06 PM [facility] Transthoracic Echocardiography Report | | (TTE) Demographics Patient Name ALDA PARSON Room Number PRAKASH | | Patient Number [id number] Date of Study 12/05/2019 Visit Number | | [id number] Referring Physician DHAVAL HOUSE MD | | Liquor Inspector ROSEANN WEEKS [facility] Number Date of 1945 | | Interpreting DHAVAL HOUSE MD Physician Age | | 74 year(s) Nurse Gender Male Stress | | TechnicianProcedureType of Study TTE procedure:ECHO Complete.Procedure DateDate: | | 12/05/2019 Start: 12:36 PMStudy Location: Echo LabTechnical Quality: Limited | | visualizationIndications:Atrial fibrillation, chronic/permanent I48.2.Patient Status: | | RoutineHeight: 69 inches Weight: 196 pounds BSA: 2.05 m^2 BMI: 28.94 kg/m^2Rhythm: | | Atrial fibrillation HR: 155 bpm BP: 120/91 mmHg Conclusions Summary Left ventricle is | | normal in size with severe systolic dysfunction in the context of underlying irregular | | tachycardia. LVEF is estimated in the range of 20-25%. Structurally normal tricuspid | | valve with trace insufficiency and peak velocity consistent with RVSP 29-34 mmHg. Right | | atrium is mild to moderately enlarged. Moderate to severe RV enlargement with reduced | | systolic function. Signature | | | | Structures Left Atrium | | LA Volume/Index: 81.41 ml /40m^2 LA Area: 24.29 cm^2 Left Atrium Findings | | Left atrium is mildly enlarged. Left Ventricle EF Estimated: 20% EF Calculated: 20% LVOT | | Diameter: 1.96 cm Left Ventricle Findings Left ventricle is normal in size with severe | | systolic dysfunction in the context of underlying irregular tachycardia. LVEF is | | estimated in the range of 20-25%. Right Atrium RA Area: 18.99 | | cm^2 Right Atrium Findings Right atrium is mild to moderately enlarged. Right Ventricle | | Right Ventricle Findings Moderate to severe RV enlargement with reduced systolic | | function.MiscellaneousAorta Aortic Root: 3.5 cm Ascending Aorta: 2.88 cm LVOT Diameter: | | 1.96 cmMiscellaneous FindingsMeasurements and calculations provided in the report | | sections maybeincomplete. Additional m-mode, 2D, Doppler, Doppler tissue, strain, | | andother hemodynamic assessments performed and documented within the imageviewer. | | Pericardium Pericardial Effusion Findings No evidence of pericardial effusion. Pleura | | Pleural Effusion Findings No evidence of pleural effusion.Valves Mitral Valve Peak | | E-Wave: 79.28 cm/s Peak A-Wave: 0.09 cm/s P1/2t: 35.2 msec | | E/A Ratio: 880.89 Deceleration Time: 121.3 msec Area | | (PHT): 6.26 cm^2 Mitral Valve Findings Structurally normal mitral valve with trace | | insufficiency. Aortic Valve Peak Velocity: 131.07 cm/s Peak Gradient: 6.87 mmHg Aortic | | Valve Findings Aortic valve is trileaflet without significant stenosis or regurgitation. | | Tricuspid Valve TR Velocity: 246.94 cm/s TR Gradient: 24.39 mmHg Tricuspid | | Valve Findings Structurally normal tricuspid valve with trace insufficiency and peak | | velocity consistent with RVSP 29-34 mmHg. Pulmonic Valve Pulmonic Valve Findings Normal | | pulmonic valve structure and function. Normal pulmonary valve and RVOT flow by color and | | Doppler flow imaging. LVOT Peak Velocity: 56.79 cm/s Peak Gradient: 1.33 mmHg LVOT | | Diameter: 1.96 cm | | Left ventricle is normal in size with severe systolic dysfunction in the | | context of underlying irregular tachycardia. LVEF is estimated in the | | range of 20-25%. | | Structurally normal tricuspid valve with trace insufficiency and peak | | velocity consistent with RVSP 29-34 mmHg. | | Right atrium is mild to moderately enlarged. | | Moderate to severe RV enlargement with reduced systolic function. | | | | Signature | | | | | | | | | | | |Structures | | | | Left Atrium | | | | LA Volume/Index: 81.41 ml /40m^2 LA Area: 24.29 cm^2 | | | | Left Atrium Findings | | Left atrium is mildly enlarged. | | | | Left Ventricle | | | | EF Estimated: 20% | | EF Calculated: 20% | | | | LVOT Diameter: 1.96 cm | | | | Left Ventricle Findings | | Left ventricle is normal in size with severe systolic dysfunction in the | | context of underlying irregular tachycardia. LVEF is estimated in the | | range of 20-25%. | | | | Right Atrium | | | | RA Area: 18.99 cm^2 | | | | Right Atrium Findings | | Right atrium is mild to moderately enlarged. | | | | Right Ventricle | | | | Right Ventricle Findings | | Moderate to severe RV enlargement with reduced systolic function. | | | |Miscellaneous | |Aorta | | | | Aortic Root: 3.5 cm | | Ascending Aorta: 2.88 cm | | LVOT Diameter: 1.96 cm | | | |Miscellaneous Findings | |Measurements and calculations provided in the report sections maybe | |incomplete. Additional m-mode, 2D, Doppler, Doppler tissue, strain, and | |other hemodynamic assessments performed and documented within the image | |viewer. | | | | Pericardium | | | | Pericardial Effusion Findings | | No evidence of pericardial effusion. | | | | Pleura | | | | Pleural Effusion Findings | | No evidence of pleural effusion. | | | |Valves | | | | Mitral Valve | | | | Peak E-Wave: 79.28 cm/s Peak A-Wave: 0.09 cm/s | | P1/2t: 35.2 msec E/A Ratio: 880.89 | | Deceleration Time: 121.3 msec | | Area (PHT): 6.26 cm^2 | | | | Mitral Valve Findings | | Structurally normal mitral valve with trace insufficiency. | | | | Aortic Valve | | | | Peak Velocity: 131.07 cm/s | | Peak Gradient: 6.87 mmHg | | | | Aortic Valve Findings | | Aortic valve is trileaflet without significant stenosis or regurgitation. | | | | Tricuspid Valve | | | | TR Velocity: 246.94 cm/s TR Gradient: 24.39 mmHg | | | | Tricuspid Valve Findings | | Structurally normal tricuspid valve with trace insufficiency and peak | | velocity consistent with RVSP 29-34 mmHg. | | | | Pulmonic Valve | | | | Pulmonic Valve Findings | | Normal pulmonic valve structure and function. Normal pulmonary valve and | | RVOT flow by color and Doppler flow imaging. | | | | LVOT | | | | Peak Velocity: 56.79 cm/s | | Peak Gradient: 1.33 mmHg | | LVOT Diameter: 1.96 cm | + + + +---------+ + + | Performing | Address | City/State/Zipcode | Phone Number | | Organization | | | | + +---------+ + + | [facility] | | | | + +---------+ + + Holter monitor - 24 hour (07/09/2019 1:30 PM PST) + + + | Narrative | Performed At | + + + | Del House MD 08/07/2019 4:48 PM | [facility] | | PATIENT NAME: Griffin Lambert : 1945: | | | AGE: 74 y.o. PRIMARY CARE: | | | Josafat ROSE PRECISION MACHINING INSTRUCTOR: Denisse House MD, PhD, | | | [facility] 24-HOUR HOLTER MONITOR REPORT DATE: 07/09/2019 | | | FINDINGS: 1) The predominant rhythm is Atrial | | | Fibrillation with HR between 68 and 135 bpm. The average HR was 96 | | | bpm during the 24:33 hour recording. 2) There were 33 | | | ventricular beats with no couplets and no triplets. 4) There | | | were no episodes of bradycardia. 5) There were 72 episodes of | | | A-fib RVR. The longest was 18 beats on Tuesday 14:00. The maximum | | | rate was 147 bpm on Tuesday 13:50. 6) Diary was returned but no | | | symptoms were reported. IMPRESSION: 1. 24-hour Holter | | | monitor notable for underlying atrial fibrillation with mean heart | | | rate 96. 2. Rare PVCs without significant sustained runs. 3. No | | | bradycardia was noted. 4. No symptoms reported. Signed by: | | | Denisse House MD PhD [facility] 08/07/2019, 4:47 PM | | + + + + +---------+ + + | Performing | Address | City/State/Zipcode | Phone Number | | Organization | | | | + +---------+ + + | [facility] | | | | + +---------+ + + ECG 12 lead (07/09/2019 11:36 AM PST) + + + + + + | Component | Value | Ref Range | Performed | Pathologist | | | | | At | Signature | + + + + + + | VENTRICULAR | 105 | BPM | [facility] | | | RATE EKG | | | | | + + + + + + | ATRIAL RATE | 300 | BPM | [facility] | | + + + + + + | QRS | 72 | ms | [facility] | | | DURATION | | | | | + + + + + + | Q-T | 300 | ms | [facility] | | | INTERVAL | | | | | + + + + + + | Q-T | 396 | ms | [facility] | | | INTERVAL | | | | | | (CORRECTED) | | | | | + + + + + + | QRS AXIS | 18 | degrees | [facility] | | + + + + + + | T AXIS | 39 | degrees | [facility] | | + + + + + + | INTERPRETAT | Atrial fibrillation with | | [facility] | | | ION TEXT | rapid ventricular | | | | | | responseNonspecific ST | | | | | | and T wave | | | | | | abnormalityAbnormal | | | | | | ECGNo previous ECGs | | | | | | availableConfirmed by | | | | | | DHAVAL HOUSE MD | | | | | | ([id number]) on 07/09/2019 | | | | | | 5:19:06 PM | | | | + + + + + + + + | Specimen | + + | | + + + + + | Narrative | Performed At | + + + | | | + + + + +---------+ + + | Performing | Address | City/State/Zipcode | Phone Number | | Organization | | | | + +---------+ + + | [facility] | | | | + +---------+ + + documented in this encounter Visit Diagnoses + + | Diagnosis | + + | Atrial fibrillation, unspecified type (HCC) - Primary | + + | Essential hypertension Unspecified essential hypertension | + + | Chronic systolic congestive heart failure (HCC) Chronic systolic heart failure | + + | BONDS (dyspnea on exertion) Other dyspnea and respiratory abnormality | + + documented in this encounter
--- OUTSIDE RECORDS SUMMARY | ~2020-03-10 | XMS | Encounter Summary ---
Demographics + + + | Address | [address] | | | [place] [address] | + + + | Home Phone | | + + + | Preferred Language | Unknown | + + + | Marital Status | | + + + | Hoahaoism Affiliation | Unknown | + + + | Race | Unknown | + + + | Ethnic Group | Unknown | + + + Author + + + | Author | [facility] | | | and Ernestoana | + + + | Organization | [facility] | | | and Ernestoana [...] Team Providers + +------+ + | Care Litigation Examiner Name | Role | Phone | + +------+ + | Timothy Carrion MD | PCP | | + +------+ + Reason for Visit +---------+--------+ + | Reason | Onset | Comments | | | Date | | +---------+--------+ + | Results | 05/22/ | | | | 2019 | | +---------+--------+ + Encounter Details +--------+ + + + + | Date | Type | Department | Care Team | Description | +--------+ + + + + | 05/22/ | Telephone | [facility] | Herber Carbajal, | Results | | 2019 | | NEUROSURGERY [address] | LASTING MACHINE OPERATOR HAND METHOD [address] | | | | | [address] | | | | | [place], [place] | [place] [address] | | | | | [address] | [phone] | | | | | [phone] | | | +--------+ + + + + Social History + +-------+ +--------+------+ | Tobacco Use | Types | Packs/Day | Years | Date | | | | | Used | | + +-------+ +--------+------+ | Never Assessed | | | | | + +-------+ +--------+------+ + + + | Sex Assigned at | Date Recorded | | | | + + + | Not on file | | + + + documented as of this encounter Miscellaneous Notes Telephone Encounter - Megan Maria, Manual Lathe Operator - 05/23/2019 10:32 AM PDTSpoke wi th patient, requested Xray results. Informed patient from Herber's last note, he wanted patien t to complete 6 visits of PT and xrays and then come in to clinic to review them. He stated understanding and is trying to get PT straightened out with insurance so he can get started. elep inessa Encounter - LincolnAp - 05/22/2019 2:28 PM JENELLEGary, is calling regarding Results and would like a call back. Additional Call Details: Checking status of X-ray results. Please call him back at home ph one listed. If this is a symptom based call, was patient offered triage? Not Applicable If this is a symptom based call and you were unable to immediately transfer the call to a bisi alaniz c winforms developer was caller made aware that if at any time he feels it is an emergency they johnathan uld call 911 or go to the nearest emergency room? not applicable documented in this encounter Plan of Treatment +--------+ + + + + | Date | Type | Specialty | Care Team | Description | +--------+ + + + + | 04/02/ | Appointment | Radiology | Noreen Rosario | | | 2019 | | | [address] | | | | | | [address] [place] | | | | | | [place] [address] | | | | | | [phone] | | | | | | | | +--------+ + + + + | 04/08/ | Office | Cardiology | Del Sweeney | | 2019 | Visit | | MD Anam [address] | | | | | | [address] [place] | | | | | | [place] [address] | | | | | | [phone] | | | | | | | | +--------+ + + + + documented as of this encounter Visit Diagnoses Not on filedocumented in this encounter"
--- OUTSIDE RECORDS SUMMARY | ~2020-03-10 | XMS | Encounter Summary ---
Demographics + + + | Address | [address] | | | [place] [address] | + + + | Home Phone | | + + + | Preferred Language | Unknown | + + + | Marital Status | | + + + | Oriental Orthodox Affiliation | Unknown | + + + | Race | Unknown | + + + | Ethnic Group | Unknown | + + + Author + + + | Author | [facility] | | | and Ernesto[place] | + + + | Organization | [facility] | | | and Ernestoana [...] Team Providers + +------+ + | Care Sharepoint Net Developer Name | Role | Phone | + +------+ + | Josafat Steve PCP | | + +------+ + Encounter Details +--------+ + + + + | Date | Type | Department | Care Team | Description | +--------+ + + + + | 03/03/ | Abstract | [facility] [place] | Noreen Rosario | | | 2020 | | CARDIOLOGY [address] | | | | | [address], | [address] [place] | | | | | [place] [address] | [place] [address] | | | | | [phone] | [phone] | | | | | | | [...] + + documented as of this encounter Plan of Treatment +--------+ + + + + | Date | Type | Specialty | Care Team | Description | +--------+ + + + + | 04/02/ | Appointment | Radiology | Noreen Rosario | | | 2019 | | | [address] | | | | | | [place] | | | | | | [place] [address] | | | | | | [phone] | | | | | | | | +--------+ + + + + | 04/08/ | Office | Cardiology | Del Sweeney | | | 2019 | Visit | | MD Dhaval [address] | | | | | | [address] [place] | | | | | | [place] [address] | | | | | | [phone] | | | | | | | | +--------+ + + + + documented as of this encounter Procedures + +--------+ + + + | Procedure Name | Priori | Date/Time | Associated Diagnosis | Comments | | | ty | | | | + +--------+ + + + | EXTERNAL LAB: CARLA | Routin | 01/30/2020 | | Results for this | | | e | | | procedure are in the | | | | | | results section. | + +--------+ + + + | EXTERNAL LAB: | Routin | 01/30/2020 | | Results for this | | GLUCOSE | e | | | procedure are in the | | | | | | results section. | + +--------+ + + + | EXTERNAL LAB: ALT | Routin | 01/30/2020 | | Results for this | | | e | | | procedure are in the | | | | | | results section. | + +--------+ + + + | EXTERNAL LAB: AST | Routin | 01/30/2020 | | Results for this | | | e | | | procedure are in the | | | | | | results section. | + +--------+ + + + | EXTERNAL LAB: | Routin | 01/30/2020 | | Results for this | | ALKALINE PHOSPHATASE | e | | | procedure are in the | | | | | | results section. | + +--------+ + + + | EXTERNAL LAB: | Routin | 01/30/2020 | | Results for this | | BILIRUBIN, TOTAL | e | | | procedure are in the | | | | | | results section. | + +--------+ + + + | EXTERNAL LAB: | Routin | 01/30/2020 | | Results for this | | ALBUMIN | e | | | procedure are in the | | | | | | results section. | + +--------+ + + + | EXTERNAL LAB: | Routin | 01/30/2020 | | Results for this | | PROTEIN, TOTAL | e | | | procedure are in the | | | | | | results section. | + +--------+ + + + | EXTERNAL LAB: | Routin | 01/30/2020 | | Results for this | | CALCIUM | e | | | procedure are in the | | | | | | results section. | + +--------+ + + + | EXTERNAL LAB: CARBON | Routin | 01/30/2020 | | Results for this | | DIOXIDE | e | | | procedure are in the | | | | | | results section. | + +--------+ + + + | EXTERNAL LAB: | Routin | 01/30/2020 | | Results for this | | CHLORIDE | e | | | procedure are in the | | | | | | results section. | + +--------+ + + + | EXTERNAL LAB: | Routin | 01/30/2020 | | Results for this | | POTASSIUM | e | | | procedure are in the | | | | | | results section. | + +--------+ + + + | EXTERNAL LAB: SODIUM | Routin | 01/30/2020 | | Results for this | | | e | | | procedure are in the | | | | | | results section. | + +--------+ + + + | EXTERNAL LAB: CBC | Routin | 01/30/2020 | | Results for this | | | e | | | procedure are in the | | | | | | results section. | + +--------+ + + + | EXTERNAL LAB: EGFR | Routin | 01/30/2020 | | Results for this | | | e | | | procedure are in the | | | | | | results section. | + +--------+ + + + | EXTERNAL LAB: | Routin | 01/30/2020 | | Results for this | | CREATININE | e | | | procedure are in the | | | | | | results section. | + +--------+ + + + | CBC WITH | Routin | 01/30/2020 | | Results for this | | DIFFERENTIAL | e | | | procedure are in the | | | | | | results section. | + +--------+ + + + | COMPREHENSIVE | Routin | 01/30/2020 | | Results for this | | METABOLIC PANEL | e | | | procedure are in the | | | | | | results section. | + +--------+ + + + documented in this encounter Results CBC with Differential (01/30/2020) + +-------+ + + + | Component | Value | Ref Range | Performed | Pathologist | | | | | At | Signature | + +-------+ + + + | MCH, POC | 30 | 27 - 33 | | | + +-------+ + + + | MCHC, POC | 33 | 30 - 36 | | | + +-------+ + + + + + | Specimen | + + | Blood | + + Comprehensive Metabolic Panel (01/30/2020) + +-------+ + + + | Component | Value | Ref Range | Performed | Pathologist | | | | | At | Signature | + +-------+ + + + | Anion Gap | 15 | 7 - 21 mmol/L | | | + +-------+ + + + | BUN/Creatin | 17.1 | | | | | ine Ratio | | | | | + +-------+ + + + + + | Specimen | + + | Blood | + + External Lab: BUN (01/30/2020) + +--------+ + + + | Component | Value | Ref Range | Performed | Pathologist | | | | | At | Signature | + +--------+ + + + | BUN, | 28 (A) | 6 - 23 | | | | External | | | | | + +--------+ + + + External Lab: Glucose (01/30/2020) + +-------+ + + + | Component | Value | Ref Range | Performed | Pathologist | | | | | At | Signature | + +-------+ + + + | Glucose, | 75 | 70 - 100 | | | | External | | | | | + +-------+ + + + External Lab: ALT (01/30/2020) + +-------+ + + + | Component | Value | Ref Range | Performed | Pathologist | | | | | At | Signature | + +-------+ + + + | ALT, | 38 | | | | | External | | | | | + +-------+ + + + External Lab: AST (01/30/2020) + +-------+ + + + | Component | Value | Ref Range | Performed | Pathologist | | | | | At | Signature | + +-------+ + + + | AST, | 26 | | | | | External | | | | | + +-------+ + + + External Lab: Alkaline Phosphatase (01/30/2020) + +-------+ + + + | Component | Value | Ref Range | Performed | Pathologist | | | | | At | Signature | + +-------+ + + + | ALP, | 70 | | | | | External | | | | | + +-------+ + + + External Lab: Bilirubin, Total (01/30/2020) + +-------+ + + + | Component | Value | Ref Range | Performed | Pathologist | | | | | At | Signature | + +-------+ + + + | Bilirubin, | 0.6 | | | | | Total, | | | | | | External | | | | | + +-------+ + + + External Lab: Albumin (01/30/2020) + +-------+ + + + | Component | Value | Ref Range | Performed | Pathologist | | | | | At | Signature | + +-------+ + + + | Albumin, | 3.7 | 3.5 - 5 | | | | External | | | | | + +-------+ + + + External Lab: Protein, Total (01/30/2020) + +-------+ + + + | Component | Value | Ref Range | Performed | Pathologist | | | | | At | Signature | + +-------+ + + + | Protein, | 6.6 | 6 - 8.3 | | | | Total, | | | | | | External | | | | | + +-------+ + + + External Lab: Calcium (01/30/2020) + +-------+ + + + | Component | Value | Ref Range | Performed | Pathologist | | | | | At | Signature | + +-------+ + + + | Calcium, | 9.4 | 8.5 - 10.3 | | | | External | | | | | + +-------+ + + + External Lab: Carbon Dioxide (01/30/2020) + +-------+ + + + | Component | Value | Ref Range | Performed | Pathologist | | | | | At | Signature | + +-------+ + + + | Carbon | 29 | 19 - 31 | | | | Dioxide, | | | | | | External | | | | | + +-------+ + + + External Lab: Chloride (01/30/2020) + +-------+ + + + | Component | Value | Ref Range | Performed | Pathologist | | | | | At | Signature | + +-------+ + + + | Chloride, | 100 | 95 - 112 | | | | External | | | | | + +-------+ + + + External Lab: Potassium (01/30/2020) + +-------+ + + + | Component | Value | Ref Range | Performed | Pathologist | | | | | At | Signature | + +-------+ + + + | Potassium, | 4.5 | 3.5 - 5.1 | | | | External | | | | | + +-------+ + + + External Lab: Sodium (01/30/2020) + +-------+ + + + | Component | Value | Ref Range | Performed | Pathologist | | | | | At | Signature | + +-------+ + + + | Sodium, | 139 | 132 - 143 | | | | External | | | | | + +-------+ + + + External Lab: CBC (01/30/2020) + + + + + + | Component | Value | Ref Range | Performed | Pathologist | | | | | At | Signature | + + + + + + | WBC, | 7.4 | 4.5 - 11 | | | | External | | | | | + + + + + + | HGB, | 12.4 (A) | 13.5 - 18 | | | | External | | | | | + + + + + + | HCT, | 38 (A) | 41 - 50 | | | | External | | | | | + + + + + + | PLT, | 303 | 140 - 440 | | | | External | | | | | + + + + + + | RBC, | 4.14 (A) | 4.3 - 5.7 | | | | External | | | | | + + + + + + | MCV, | 92 | 81 - 99 | | | | External | | | | | + + + + + + | RDW, | 17.4 (A) | 10 - 15 | | | | External | | | | | + + + + + + External Lab: eGFR (01/30/2020) + +-------+ + + + | Component | Value | Ref Range | Performed | Pathologist | | | | | At | Signature | + +-------+ + + + | eGFR, | 42 | | | | | External | | | | | + +-------+ + + + + + | Specimen | + + | Blood | + + External Lab: Creatinine (01/30/2020) + + + + + + | Component | Value | Ref Range | Performed | Pathologist | | | | | At | Signature | + + + + + + | Creatinine, | 1.64 (A) | 0.7 - 1.18 | | | | External | | | | | + + + + + + + + | Specimen | + + | Blood | + + documented in this encounter Visit Diagnoses Not on filedocumented in this encounter"
--- OUTSIDE RECORDS SUMMARY | ~2020-03-10 | XMS | Encounter Summary ---
Demographics + + + | Address | [address] | | | [place] [address] | + + + | Home Phone | | + + + | Preferred Language | Unknown | + + + | Marital Status | | + + + | Congregation Affiliation | Unknown | + + + | Race | Unknown | + + + | Ethnic Group | Unknown | + + + Author + + + | Author | [facility] | | | and Ernestoana | + + + | Organization | [facility] | | | and Ernestoana | [...] Team Providers + +------+ + | Care Director Service Name | Role | Phone | + [...] | Atrial | Del | [address] | | | | | fibrillation | MD Dhaval | [place], | | | | | , | [address] | [place] | | | | | unspecified | St [place] | [address] | | | | | type ([facility]) | [place] | Phone: | | | | | Chronic | [address] | [phone] | | | | | systolic | Phone: | Fax: | | | | | congestive | [phone] | [phone] | | | | | heart | Fax: | | | | | | failure | [phone] | | | | | | ([facility]) | | | | | | | Procedures | | | | | | | ECHO | | | | | | | Complete | | | +--------+--------+ + + + + Reason for Visit Auth/Cert +--------+--------+ + + + + | Status | Reason | Specialty | Diagnoses / | Referred By | Referred To | | | | | Procedures | Contact | Contact | +--------+--------+ + + + + | | | | Diagnoses | | | | | | | Atrial | | | | | | | fibrillation | | | | | | | with RVR | | | | | | | ([facility]) | | | +--------+--------+ + + + + Encounter Details +--------+ + + + + | Date | Type | Department | Care Team | Description | +--------+ + + + + | 12/04/ | Hospital | [facility] | Atrial fibrillation, | | 2019 | Encounter | [facility] [address] | MD Dhaval [address] | unspecified type | | | | [address] [place] | [address] [place] | (HCC); Chronic | | | | [place] [address] | [place] [address] | systolic congestive | | | | [phone] | [phone] | heart failure (HCC) | | | | | | | [...] + + documented as of this encounter Medications at Time of Discharge + + + +---------+ + + | Medication | Sig | Dispensed | Refills | Start | End Date | | | | | | Date | | + + + +---------+ + + | CARTIA XT 240 MG | TAKE 1 CAPSULE BY | | 5 | 02/29/20 | | | 24 hr capsule | MOUTH IN THE MORNING | | | 19 | | | | ON AN EMPTY STOMACH | | | | | + + + +---------+ + + | cyclobenzaprine | Take 10 mg by mouth | | 5 | 02/29/20 | | | (FLEXERIL) 10 mg | 3 (three) times | | | 19 | | | tablet | daily. | | | | | + + + +---------+ + + | doxazosin (CARDURA | Take 4 mg by mouth | | 0 | | | | XL) 4 MG 24 hr | daily (with | | | | | | tablet | breakfast). | | | | | + + + +---------+ + + | potassium chloride | Take 1 tablet by | 60 | 0 | 12/07/19 | | | (KLOR-CON M20) 20 | mouth 2 times daily. | tablet | | 20 | | | mEq ER tablet | | | | | | + + + +---------+ + + | warfarin | Take 7.5 mg by mouth | | 0 | | | | (COUMADIN) 5 mg | five times weekly | | | | | | tablet | on Tuesday, Tuesday, | | | | | | | Tuesday, | | | | | | | and TuesdayManaged | | | | | | | by Josafat Steve at | | | | | | | [facility] | | | | | | | Medicine | | | | | + + + +---------+ + + | warfarin | Take 5 mg by mouth | | 0 | | | | (COUMADIN) 5 mg | twice weekly on | | | | | | tablet | Tuesday and Tuesday | | | | | | | Managed by Josafat | | | | | | | [facility] | | | | | | | [facility] | | | | | + + + +---------+ + + | furosemide (LASIX) | Take 2 tablets by | 30 | 1 | 12/07/19 | | | 20 mg tablet | mouth 2 times daily. | tablet | | 20 | 0 | + + + +---------+ + + | furosemide (LASIX) | Take 60 mg by mouth | | 1 | 02/29/20 | | | 20 mg tablet | daily. | | | 19 | 0 | + + + +---------+ + + | lisinopril | | | 3 | 01/06/20 | | | (PRINIVIL,ZESTRIL) | | | | 19 | 0 | | 2.5 MG tablet | | | | | | + + + +---------+ + + | metoprolol | TAKE 4 TABLETS BY | | 1 | 02/29/20 | | | succinate | MOUTH ONCE DAILY | | | 19 | 0 | | (TOPROL-XL) 50 mg 24 | | | | | | | hr tablet | | | | | | + + + +---------+ + + | potassium chloride | Take 20 mEq by mouth | | 0 | 02/14/20 | | | (ANKITAOR-CON M20) 20 | daily. | | | 19 | 0 | | mEq ER tablet | | | | | | + + + +---------+ + + | warfarin | TAKE 1 & 1 2 (ONE & | | 0 | 02/14/20 | | | (COUMADIN) 5 mg | ONE HALF) TABLETS BY | | | 19 | 0 | | tablet | MOUTH ONCE DAILY ON | | | | | | | MON WED AND FRI | | | | | | | TAKE 1 TABLET ONCE A | | | | | | | DAY ON ALL OTHER | | | | | | | DAYS | | | | | + + + +---------+ + + documented as of this encounter Plan of Treatment +--------+ + + + + | Date | Type | Specialty | Care Team | Description | +--------+ + + + + | 04/02/ | Appointment | Radiology | Noreen Rosario | | 2019 | | | [address] | | | | | | [address] [place] | | | | | | [place] [address] | | | | | | [phone] | | | | | | | | +--------+ + + + + | 04/08/ | Office | Cardiology | [facility] | | 2019 | Visit | | MD Anam Puentes W | | | | | | [address] [place] | | | | | | [place] [address] | | | | | | [phone] | | | | | | | | +--------+ + + + + documented as of this encounter Procedures + +--------+ + + + | Procedure Name | Priori | Date/Time | Associated Diagnosis | Comments | | | ty | | | | + +--------+ + + + | ECHO COMPLETE | Routin | 12/05/2019 | Atrial | Results for this | | | e | 1:00 PM | fibrillation, | procedure are in the | | | | PDT | unspecified type | results section. 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 Procedure Type of Study TTE | | [...] | Procedure Note | + + | Tim Garrett Results In - 12/06/2019 2:06 PM PDT Transthoracic Echocardiography Report | | (TTE) Demographics Patient Name ALDA PARSON Room Number PRAKASH | | Patient Number [id number] Date of Study 12/05/2019 Visit Number | | [id number] Referring Physician DHAVAL HOUSE MD | | Educational Consultant ROSEANN [facility]OLANDA [facility] Number Date of 1945 | | Interpreting [...] + | Atrial fibrillation, unspecified type (HCC) | + + | Chronic systolic congestive heart failure (HCC) Chronic systolic heart failure | + + documented in this encounter"
--- OUTSIDE RECORDS SUMMARY | ~2020-03-10 | XMS | Encounter Summary ---
Demographics + + + | Address | [address] | | | [place] [address] | + + + | Home Phone | | + + + | Preferred Language | Unknown | + + + | Marital Status | | + + + | Cheondoism Affiliation | Unknown | + + + | Race | Unknown | + + + | Ethnic Group | Unknown | + + + Author + + + | Author | [facility] | | | and Ernestoana | + + + | Organization | [facility] | | | and [...] Team Providers + +------+ + | Care License And Permit Specialist Name | Role | Phone | + +------+ + | Timothy Carrion MD | PCP | | + +------+ + Reason for Visit +--------+--------+ + | Reason | Onset | Comments | | | Date | | +--------+--------+ + | LABS | 06/26/ | | | | 2019 | | +--------+--------+ + Encounter Details +--------+ + + + + | Date | Type | Department | Care Team | Description | +--------+ + + + + | 06/26/ | Telephone | [facility] | [facility] | LABS | | 2019 | | CARDIOLOGY [address] | MD Dhaval [address] | | | | | [place], | [address] [place] | | | | | [place] [address] | [place] [address] | | | | | [phone] | [phone] | | | | | | | [...] this encounter Miscellaneous Notes Telephone Encounter - Elizabeth Jones Roofing Plant Supervisor - 06/26/2019 10:49 AM PDTVoicemail not set up. elephone Encounter - Lamar Forte RN - 06/26/2019 8:51 AM PDTOrder done .......... .................................Lamar Forte, RN, RN on 06/26/19 at 8:51 elephone Encounter - Elizabeth Jones Roofing Plant Supervisor - 06/26/2019 8:25 AM PDTPatient scheduled for an appoi ntment on 07/09/19 and is needing a fasting Lipid panel, CBC, BNP and CMP. Please order, james nk you. I will call patient with lab order information. docipriano menendez in this encounter Plan of Treatment +--------+ + + + + | Date | Type | Specialty | Care Team | Description | +--------+ + + + + | 04/02/ | Appointment | Radiology | Noreen Rosario | | | 2019 | | | Fredy, PA-C [address] | | | | | | [address] [place] | | | | | | [place] [address] | | | | | | [phone] | | | | | | | | +--------+ + + + + | 04/08/ | Office | Cardiology | [facility] | | | 2020 | Visit | | MD Anam Puentes [address] | | | | | | [address] [place] | | | | | | [place] [address] | | | | | | [phone] | | | | | | | | +--------+ + + + + + +------+--------+ + + | Name | Type | Priori | Associated Diagnoses | Order Schedule | | | | ty | | | + +------+--------+ + + | Lipid Panel | Lab | Routin | Essential | Expected: | | | | e | hypertension | 06/26/2019, Expires: | | | | | Chronic systolic | 06/25/2020 | | | | | congestive heart | | | | | | failure (HCC) | | | | | | Atrial fibrillation, | | | | | | unspecified type | | | | | | (HCC) | | + +------+--------+ + + | Comprehensive | Lab | Routin | Essential | Expected: | | Metabolic Panel | | e | hypertension | 06/26/2019, Expires: | | | | | Chronic systolic | 06/25/2020 | | | | | congestive heart | | | | | | failure (HCC) | | | | | | Atrial fibrillation, | | | | | | unspecified type | | | | | | (HCC) | | + +------+--------+ + + | CBC with | Lab | Routin | Essential | Expected: | | Differential | | e | hypertension | 06/26/2019, Expires: | | | | | Chronic systolic | 06/25/2020 | | | | | congestive heart | | | | | | failure (HCC) | | | | | | Atrial fibrillation, | | | | | | unspecified type | | | | | | (HCC) | | + +------+--------+ + + | B Type Natriuretic | Lab | Routin | Essential | Expected: | | Peptide | | e | hypertension | 06/26/2019, Expires: | | | | | Chronic systolic | 06/25/2020 | | | | | congestive heart | | | | | | failure (HCC) | | | | | | Atrial fibrillation, | | | | | | unspecified type | | | | | | (HCC) | | + +------+--------+ + + documented as of this encounter Visit Diagnoses + + | Diagnosis | + + | Essential hypertension - Primary Unspecified essential hypertension | + + | Chronic systolic congestive heart failure (HCC) Chronic systolic heart failure | + + | Atrial fibrillation, unspecified type (HCC) | + + documented in this encounter"
--- OUTSIDE RECORDS SUMMARY | ~2020-03-10 | XMS | Encounter Summary ---
Demographics + + + | Address | [address] | | | [place] [address] | + + + | Home Phone | | + + + | Preferred Language | Unknown | + + + | Marital Status | | + + + | Sabianism Affiliation | Unknown | + + + | Race | Unknown | + + + | Ethnic Group | Unknown | + + + Author + + + | Author | [facility] | | | and Ernestoana | + + + | Organization | [facility] | | | and Ernestoana [...] Team Providers + +------+ + | Care Online Content Editor Name | Role | Phone | + +------+ + | Josafat Steve PCP | | + +------+ + Reason for Visit + + + | Reason | Comments | + + + | Follow-up | | + + + | Hypertension | | + + + Follow Up (Routine) + +--------+ + + + + | Status | Reason | Specialty | Diagnoses / | Referred By | Referred To | | | | | Procedures | Contact | Contact | + +--------+ + + + + | Authorized | | Cardiology | Diagnoses | Power, | Zahra, | | | | | Unspecified | Josafat Hassan | Del | | | | | atrial | [address] | MD Dhaval | | | | | fibrillation | [address] | [address] | | | | | (HCC) | [place], | [place] | | | | | Essential | [place] [address] | [place], [place] | | | | | (primary) | Phone: | [phone] Phone: | | | | | hypertension | [phone] | [phone] | | | | | Chronic | Fax: | Fax: | | | | | systolic | [phone] | [phone] | | | | | (congestive) | | | | | | | heart | | | | | | | failure | | | | | | | (HCC) Other | | | | | | | forms of | | | | | | | dyspnea | | | | | | | Procedures | | | | | | | FOLLOW UP | | | + +--------+ + + + + Encounter Details +--------+---------+ + + + | Date | Type | Department | Care Team | Description | +--------+---------+ + + + | 02/12/ | Office | [facility] [place] | Noreen Rosario | Essential | | 2020 | Visit | CARDIOLOGY [address] | [address] | hypertension | | | | [address] [place], | [address] [place] | (Primary Dx); | | | | [place] [address] | [place] [address] | Chronic systolic | | | | [phone] | [phone] | congestive heart | | | | | | failure (HCC); | | | | | | Atrial fibrillation, | | | | | | unspecified type | | | | | | (HCC); BONDS (dyspnea | | | | | | on exertion) | +--------+---------+ + + + Social [...] + + + | Blood Pressure | 128/72 | 02/13/2020 12:59 PM | | | | | PDT | | + + + + + | Pulse | 135 | 02/13/2020 12:59 PM | | | | | PDT | | + + + + + | Temperature | - | - | | + + + + + | Respiratory Rate | 12 | 02/13/2020 12:59 PM | | | | | PDT | | + + + + + | Oxygen Saturation | - | - | | + + + + + | Inhaled Oxygen | - | - | | | Concentration | | | | + + + + + | Weight | 86.6 kg (191 lb) | 02/13/2020 12:59 PM | | | | | PDT | | + + + + + | Height | 175.3 cm (5' 9") | 02/13/2020 12:59 PM | | | | | PDT | | + + + + + | Body Mass Index | 28.21 | 02/13/2020 12:59 PM | | | | | PDT | | + + + + + documented in this encounter Patient Instructions Patient Instructions Noreen Rosario PA-C - 02/13/2020 1:00 PM PDT1. Take your pills SOON YOU GET HOME 2. You MUST take your pills the same time every day - please set an alarm or two to help y ou remember 3. You will be scheduled for an echocardiogram 4. I will send you a prescription for the 200 mg pill of Metoprolol - this will take the p lace of your 4 metoprolol pills 5. Follow up with your PCP next week as scheduled 6. You will be scheduled for a follow up with me in 2 weeks. documented in this encounter Progress Notes Noreen Rosario PA-C - 02/13/2020 1:00 PM PDTFormatting of this note might be differen t from the original. PATIENT NAME: Griffin Lambert : 1945: AGE: 75 y.o. REFERRED BY: In System Provider Not PRIMARY CARE: Josafat Steve CARDIOLOGY OFFICE VISIT Date of Service: 02/13/20 HISTORY OF PRESENT ILLNESS: Griffin Lambert is a 75 y.o. male with a history of heart failure and persistent atrial fibrillation. He is being seen today for a follow-up visit. Since his last office visit in November, he has noticed increased swelling of his lower extrem ities. He saw his PCP and lasix was increased to 80 mg more recently. He has had difficult y remembering to take his pills in a timely manner, and states that he does not use a pill b ox, nor have reminders set. He admits to forgetting to take his medication this morning and at our last visit 12/11/19 he also had forgotten. He has a history of medical non-complianc e, and admits that he is actually out of one of his pills for an unknown period of time. He admits that he is overdue for warfarin monitoring blood draw and has this monitored at [facility] in [place]. He has had a fair energy level. He has not been very active. He enjoys watching tv and wo rking in the yard. He has not had any chest pain or discomfort at rest or with exertion. He has not noticed shortness of breath. He has not had any lightheadedness or dizziness. H e has not noticed palpitations. He has had leg swelling that his primary care doctor prescr ibed 80 mg of lasix for. He sleeps in a recliner due to his back problems. He does not sle ep with a CPAP machine. Pertinent historical clinical information: He was initially referred by In System Provider Not for further evaluation given recent hos pitalization for atrial fibrillation with rapid ventricular rate. He was started on warfari n therapy as well as rate control therapy with long-acting diltiazem and metoprolol and was discharged. He was also felt to be in underlying heart failure with exertional dyspnea and elevated BNP's at that time. He feels that this has improved since but does admit to medica l noncompliance. He has been checking his INR is locally at [facility] . He has no known history of CAD or myocardial infarction, stroke or TIAs. MEDICAL, SURGICAL, AND PERSONAL HISTORY Past Medical History: Diagnosis Date Atrial fibrillation (HCC) Chronic systolic congestive heart failure (HCC) Essential hypertension detention (current) use of anticoagulants Prostate hypertrophy No past surgical history on file. Family History Problem Relation Age of Onset Cancer Mother Cancer Father Family Status Relation Name Status Mother (Not Specified) Father (Not Specified) Social History Socioeconomic History Marital status: Spouse name: Not on file Number of children: Not on file Years of education: Not on file Highest education level: Not on file Tobacco Use Smoking status: Former Smoker Quit date: 07/09/2012 Years since quittin.6 Smokeless tobacco: Never Used Substance and Sexual [...] by mouth daily (with breakfast). furosemide (LASIX) 80 mg tablet TAKE 1 TABLET BY MOUTH TWICE DAILY lisinopril (PRINIVIL,ZESTRIL) 2.5 MG tablet (Patient taking differently: Take 2.5 mg b y mouth Daily.) 3 metoprolol succinate (TOPROL-XL) 50 mg 24 hr tablet TAKE 4 TABLETS BY MOUTH ONCE DAILY 1 potassium chloride (KLOR-CON M20) 20 mEq ER tablet Take 1 tablet by mouth 2 times daily . 60 tablet 0 warfarin (COUMADIN) 5 mg tablet Take 7.5 mg by mouth five times weekly on Tuesday, , Tuesday, and Tuesday Managed by Josafat Steve at [facility] warfarin (COUMADIN) 5 mg tablet Take 5 mg by mouth twice weekly on Tuesday and Tuesday Managed by Josafat Steve at [facility] No current facility-administered medications for this visit. ALLERGIES No Known Allergies ROS I have reviewed the Review of Systems form dated today and scanned into the media tab. OBJECTIVE: PHYSICAL EXAM BP 128/72 | Pulse 135 | Resp 12 | Ht 1.753 m (5' 9") | Wt 86.6 kg (191 lb) | BMI 28.21 kg/m Physical Exam Constitutional: He is oriented [...] no midsystolic click. No murmur heard. Pulses: Radial pulses are 2+ on the right side and 2+ on the left side. Pulmonary/Chest: Effort normal and breath sounds normal. No accessory muscle usage. No resp iratory distress. He has no wheezes. He has no rhonchi. He has no rales. Abdominal: Soft. Normal aorta and bowel sounds are normal. He exhibits no abdominal bruit. There is no hepatosplenomegaly. There is no abdominal tenderness. Musculoskeletal: General: Edema (2+ BLE) present. Neurological: He is alert and oriented to person, place, and time. Gait normal. Skin: Skin is warm and dry. No cyanosis. Nails show no clubbing. Psychiatric: He has a normal mood and affect. His mood appears not anxious. He does not exh ibit a depressed mood. Vitals reviewed. ECG: reviewed by me today notable for atrial fibrillation with RVR, HR 135, nonspecific T w ave abnormality. Reviewed by me notable for atrial fibrillation with rapid ventricular rate, heart rate 105 , nonspecific T wave flattening diffusely. LAB RESULTS: LIPID No results found for: CHOL, TRIG, HDL, LDL, CHOLHDL, LDLEX, HDLEX, TRIGEX, CHOLEX CHEMISTRY Lab Results Component Value Date GLU 113 (H) 12/07/2019 GLUEX 92 02/13/2019 NA 138 12/07/2019 NAEX 135 02/13/2019 K 3.7 12/07/2019 KEX 3.4 02/13/2019 CL 100 12/07/2019 CLEX 95 02/13/2019 CO2 32 (H) 12/07/2019 CO2EX 30 02/13/2019 CALCIUM 8.9 12/07/2019 ALKPHOS 71 12/05/2019 AST 19 12/05/2019 ALT 17 12/05/2019 BILITOT 0.6 12/05/2019 CREA 1.28 12/07/2019 BUN 23 12/07/2019 EGFREX 57 02/13/2019 CREEX 1.23 02/13/2019 HEMATOLOGY Lab Results Component Value Date WBC 7.3 12/07/2019 HGB 13.5 12/07/2019 HCT 43.7 12/07/2019 PLT 275 12/07/2019 I reviewed records from [facility] hospitalization [facility] 12/07/2019, as well as previously, [facility] for hospitalization,including H&P, Discharge Summary and lab reports on 02/13/2019 and PCP note 04/17/2019. 24 hour holter monitor June 2019: 24-hour Holter monitor notable for underlying atrial fibrillation with mean heart rate 96. Rare PVCs without significant sustained runs. No jonas cardia was noted. No symptoms reported. Dhaval Sweeney MD Echocardiogram November 2019: Left ventricle is normal in size with severe systolic dysfunctio n in the context of underlying irregular tachycardia. LVEF is estimated in the range of 20-2 5%. Structurally normal tricuspid valve with trace insufficiency and peak velocity consisten t with RVSP 29-34 mmHg. Right atrium is mild to moderately enlarged. Moderate to severe RV e nlargement with reduced systolic function. Dhaval Sweeney MD ASSESSMENT: 1. Persistent atrial fibrillation - patient is on a robust dose of both long-acting diltia zem and metoprolol, which can be further uptitrated if needed. He admits to noncompliance i ncluding in the recent past and indeed he had presented with significant tachycardia requiri hospitalization just 2 months ago. He states that he did not take his medications the day of his admission, and had said the same thing when he was here for his office visit previou marisol. We once again discussed at length the importance of better medical compliance, and a s ystem for remembering to take his pills. His most recent Holter monitor did suggest subopti mal rate control, however, in the context of some degree of baseline medical noncompliance. He is substantially tachycardic today with HR 135, however shows no signs of decompensation and is feeling fine. He is to return home immediately and take his pills now and on a marianela y basis at the same time. His uncontrolled heart rate today is most definitely due to medic al non-compliance. He would benefit from indefinite anticoagulation therapy. [facility] with therapeutic INRs. He may benefit from conversion to a NOAC - I have p reviously supplied him with a list and he will inquire into their insurance coverage. 2. Heart failure - this was noticed during his previous presentation to the emergency room with tachycardia and it was attributed at that time to poor rate control, and again during his recent hospitalization. Once better rate control is established, I will have him underg o a repeat echocardiogram to follow-up on his cardiomyopathy and reassess LVEF. We will als o check a BNP periodically. PLAN: 1. Echocardiogram. 2. Check BNP. 3. Medical compliance once again reinforced. 4. I have talked with [facility] coumadin clinic in [place] to ensure he is up to date on his INR checks, and they will call him today as he is indeed overdue. 5. He will follow up with his PCP in 1 week 6. Follow up with me in 2 weeks with BNP and BMP prior to visit. 7. Continue current medications for now. Consider conversion of warfarin to NOAC. Will bernard sosa discuss at next visit. 8. He will follow up with Dr. Sweeney after echocardiogram Portions of this report were transcribed using voice recognition software. Every effort wa s made to ensure accuracy; however, inadvertent computerized sole buffer errors may be pre sent. Electronically signed by: Noreen Rosario PA-C 02/13/2020 documented in th is encounter Plan of Treatment +--------+ + + + + | Date | Type | Specialty | Care Team | Description | +--------+ + + + + | 04/02/ | Appointment | Radiology | Noreen Rosario | | 2019 | | | [address] | | | | | | [address] | | | | | | [place] [address] | | | | | | [phone] | | | | | | | | +--------+ + + + + | 04/08/ | Office | Cardiology | Del Sweeney | | 2019 | Visit | | MD Dhaval [address] | | | | | | [address] [place] | | | | | | [place] [address] | | | | | | [phone] | | | | | | | | +--------+ + + + + documented as of this encounter Procedures + +--------+ + + + | Procedure Name | Priori | Date/Time | Associated Diagnosis | Comments | | | ty | | | | + +--------+ + + + | ECG 12 LEAD | Routin | 02/13/2020 | Essential | Results for this | | | e | 12:55 PM | hypertension Atrial | procedure are in the | | | | PDT | fibrillation, | results section. | | | | | unspecified type | | | | | | (HCC) | | + +--------+ + + + documented in this encounter Results ECG 12 lead (02/13/2020 12:55 PM PDT) + + + + + + | Component | Value | Ref Range | Performed | Pathologist | | | | | At | Signature | + + + + + + | VENTRICULAR | 135 | BPM | [facility] | | | RATE EKG | | | | | + + + + + + | ATRIAL RATE | 150 | BPM | [facility] | | + + + + + + | QRS | 80 | ms | [facility] | | | DURATION | | | | | + + + + + + | Q-T | 332 | ms | [facility] | | | INTERVAL | | | | | + + + + + + | Q-T | 498 | ms | [facility] | | | INTERVAL | | | | | | (CORRECTED) | | | | | + + + + + + | QRS AXIS | 22 | degrees | [facility] | | + + + + + + | T AXIS | 107 | degrees | [facility] | | + + + + + + | INTERPRETAT | Atrial fibrillation with | | [facility] | | | ION TEXT | rapid ventricular | | | | | | responseNonspecific T | | | | | | wave abnormalityAbnormal | | | | | | ECGWhen compared with | | | | | | ECG of 05-DEC-2019 | | | | | | 13:30,No significant | | | | | | change was | | | | | | foundConfirmed by | | | | | | AKBAR WILSON MD | | | | | | ([id number]) on 02/15/2020 | | | | | | 12:05:46 PM | | | | + + [...] unspecified type (HCC) | + + | BONDS (dyspnea on exertion) Other dyspnea and respiratory abnormality | + + documented in this encounter
--- OUTSIDE RECORDS SUMMARY | ~2020-03-10 | XMS | Encounter Summary ---
Demographics + + + | Address | [address] | | | [place] [address] | + + + | Home Phone | | + + + | Preferred Language | Unknown | + + + | Marital Status | | + + + | Spiritism Affiliation | Unknown | + + + | Race | Unknown | + + + | Ethnic Group | Unknown | + + + Author + + + | Author | [facility] | | | and Ernestoana | + + + | Organization | [facility] | | | and [...] Team Providers + +------+ + | Care Paramedic Rn Name | Role | Phone | + +------+ + | Josafat Steve | PCP | | + +------+ + Encounter Details +--------+ + + + + | Date | Type | Department | Care Team | Description | +--------+ + + + + | 07/09/ | [facility] | [facility] | Del Sweeney | Atrial fibrillation, | | 2019 | Encounter | MED CTR [facility]UCLE[facility] | MD Dhaval [address] | unspecified type | | | | MEDICINE [address] | [address] [place] | ([facility]); Chronic | | | | [address], | [place] [address] | systolic congestive | | | | [place] [address] | [phone] | heart failure (HCC) | | | | [phone] | | | +--------+ + + + [...] | 0 | 02/14/20 | | | (KLOR-CON M20) 20 | daily. | | | [...] | | | | | | | Tue AND TUE | | | | | | | TAKE 1 TABLET ONCE A | | | | | | | DAY ON ALL OTHER | | | | | | | DAYS | | | | | + + + +---------+ + + documented as of this encounter Procedure Notes Del Sweeney MD - 07/09/2019 1:30 PM PSTAssociated Order(s): HOLTER MONITOR - 24 HOUR PATIENT NAME: Griffin Lambert : 1945: AGE: 74 y.o. PRIMARY CARE: Josafat ROSE FAST FOOD ATTENDANT: Denisse Sweeney MD, PhD, [facility] 24-HOUR HOLTER MONITOR REPORT DATE: 07/09/2019 FINDINGS: 1) The predominant rhythm is Atrial Fibrillation with HR between 68 and 135 bpm. The av erage HR was 96 bpm during the 24:33 hour recording. 2) There were 33 ventricular beats with no couplets and no triplets. 4) There were no episodes of bradycardia. 5) There were 72 episodes of A-fib RVR. The longest was 18 beats on Tuesday 14:00. The maximum rate was 147 bpm on Tuesday 13:50. 6) Diary was returned but no symptoms were reported. IMPRESSION: 1. 24-hour Holter monitor notable for underlying atrial fibrillation with mean heart rate 96. 2. Rare PVCs without significant sustained runs. 3. No bradycardia was noted. 4. No symptoms reported. Signed by: Denisse Sweeney MD PhD [facility] 08/07/2019, 4:47 PM documented in t his encounter Plan of [...] | | | | | [place] [address] | | | | | | [phone] | | | | | | | | +--------+ + + + + | 04/08/ | Office | Cardiology | Del Sweeney | | 2019 | Visit | | MD Dhaval [address] | | | | | | [address] [place] | | | | | | [place] [address] | | | | | | [phone] | | | | | | | | +--------+ + + + + documented as of this encounter Procedures + +--------+ + + + | Procedure Name | Priori | Date/Time | Associated Diagnosis | Comments | | | ty | | | | + +--------+ + + + | HOLTER MONITOR - 24 | Routin | 07/09/2019 | Atrial | Results for this | | HOUR | e | 1:30 PM | fibrillation, | procedure are in the | | | | PST | unspecified type | results section. | | | | | (HCC) Chronic | | | | | | systolic congestive | | | | | | heart failure (HCC) | | + +--------+ + + + documented in this encounter Results Holter monitor - 24 hour (07/09/2019 1:30 PM PST) + + + | Narrative | Performed At | + + + | Del Sweeney MD 08/07/2019 4:48 PM | [facility] | | PATIENT NAME: Griffin Lambert : 1945: | | | AGE: 74 y.o. PRIMARY CARE: | | | Josafat ROSE FAST FOOD ATTENDANT: Denisse Sweeney MD, PhD, | | | [facility] 24-HOUR HOLTER MONITOR REPORT DATE: 07/09/2019 | [...] reported. Signed by: | | | Denisse Sweeney MD PhD [facility] 08/07/2019, 4:47 PM | | + + [...]
--- OUTSIDE RECORDS SUMMARY | ~2020-03-10 | XMS | Encounter Summary ---
Demographics + + + | Address | [address] | | | [place] [address] | + + + | Home Phone | | + + + | Preferred Language | Unknown | + + + | Marital Status | | + + + | Confucianism Affiliation | Unknown | + + + | Race | Unknown | + + + | Ethnic Group | Unknown | + + + Author + + + | Author | [facility] | | | and Ernestoana | + + + | Organization | [facility] | | | and Ernestoana [...] Providers + +------+ + | Care Electronic Technologist Name | Role | Phone | + +------+ + | Josafat Steve PCP | | + +------+ + Reason for Visit + + + | Reason | Comments | + + + | Follow-up | | + + + Follow Up [...] | | | | fibrillation | [address] | [address] | | | | | (HCC) | [place], | [place] | | | | | [place]ential | [place] [address] | [place], [place] | | | | | (primary) | Phone: | [phone] Phone: | | | | | hypertension | [phone] | [phone] | | | | | Chronic | Fax: | Fax: | | | | | systolic | [phone] | [phone] | | | | | (congestive) | [...] Description | +--------+---------+ + + + | 12/10/ | Office | [facility] | Del Sweeney | Essential | | 2020 | Visit | CARDIOLOGY [address] | MD Dhaval [address] | hypertension | | | | [address], | [address] [place] | (Primary Dx); | | | | [place] [address] | [place] [address] | Chronic systolic | | | | [phone] | [phone] | congestive heart | | | | | | failure (HCC); | | | | | | Atrial fibrillation, | | | | | | unspecified type | | | | | | (HCC) | +--------+---------+ + + + Social History [...] + + + | Blood Pressure | 126/74 | 12/11/2019 1:34 PM | | | | | PDT | | + + + + + | Pulse | 64 | 12/11/2019 1:34 PM | | | | | PDT | | + + + + + | Temperature | - | - | | + + + + + | Respiratory Rate | 12 | 12/11/2019 1:34 PM | | | | | PDT | | + + + + + | Oxygen Saturation | - | - | | + + + + + | Inhaled Oxygen | - | - | | | Concentration | | | | + + + + + | Weight | 80.7 kg (178 lb) | 12/11/2019 1:34 PM | | | | | PDT | | + + + + + | Height | 175.3 cm (5' 9") | 12/11/2019 1:34 PM | | | | | PDT | | + + + + + | Body Mass Index | 26.29 | 12/11/2019 1:34 PM | | | | | PDT | | + + + + + documented in this encounter Patient Instructions Patient Instructions Lamar Forte RN - 12/11/2019 1:30 PM PDT Follow up appointment: 2-3 months with EKG Provider: Noreen Rosario PA-C Date: Check-In Time: Blood test: Non-fasting Date Due: just prior to your 6 month follow up with Dr Sweeney Where to go for labs: Lab order can be sent to the lab of your choice, will send closer to the due date, just after scheduling echo and 6 month follow up Echo: Date: due in 6 months just prior to your next appointment with Dr Sweeney Check-In Time: Where to Check In: Follow up appointment: 6 months, we will call you closer to the due date to arrange this ap pointment along with echo and send lab orders Provider: Odell Sweeney MD Date: Check-In Time: documented in this encounter Progress Notes Del Sweeney MD - 12/11/2019 1:30 PM PDTFormatting of this note might be differe nt from the original. PATIENT NAME: Griffin Lambert : 1945: AGE: 74 y.o. REFERRED BY: Josafat Steve MD PRIMARY CARE: Josafat Steve CARDIOLOGY OFFICE VISIT Date of Service: 12/11/19 HISTORY OF PRESENT ILLNESS: Griffin Lambert is a 74 y.o. male with a history of heart failure and persistent atrial fibrillation. He is being seen today for a follow-up visit. Since our last consultation, bisi alvarez was briefly admitted after he presented with atrial fibrillation with rapid ventricul ar rate near 150 which was noted as he came to his echocardiography appointment. He states that he had not taken his medications that morning. Otherwise he states that he has been co mpliant for the most part. His weight is down approximately 18 pounds since our last visit. Pertinent historical clinical information: He was initially referred by Josafat Steve MD for further evaluation given recent hospi talization for atrial fibrillation with rapid ventricular rate. He was started on warfarin therapy as well as rate control therapy with long-acting diltiazem and metoprolol and was di scharged. He was also felt to be in underlying heart failure with exertional dyspnea and el evated BNP's at that time. He feels that this has improved since but does admit to medical noncompliance. He has been checking his INR is locally at [facility] Coumadin clinic. He has no known history of CAD or myocardial infarction, stroke or TIAs. MEDICAL, SURGICAL, AND PERSONAL HISTORY Past Medical History: Diagnosis Date Atrial fibrillation (HCC) Chronic systolic congestive heart failure (HCC) Essential hypertension snf (current) use of anticoagulants Prostate hypertrophy History [...] Last attempt to quit: 07/09/2012 Years since quittin.4 Smokeless tobacco: Never Used Substance and Sexual [...] breakfast). furosemide (LASIX) 20 mg tablet Take 2 tablets by mouth 2 times daily. 30 tablet 1 lisinopril (PRINIVIL,ZESTRIL) 2.5 MG tablet (Patient [...] and Tuesday Managed by Josafat Steve at [facility] warfarin (COUMADIN) 5 mg tablet Take 5 mg by mouth twice weekly on Tuesday and Tuesday Managed by Josafat Steve at [facility] No current facility-administered medications for this visit. ALLERGIES No Known Allergies ROS I have reviewed the Review of Systems form dated today and scanned into the media tab. OBJECTIVE: PHYSICAL EXAM BP 126/74 | Pulse 64 | Resp 12 | Ht 1.753 m (5' 9") | Wt 80.7 kg (178 lb) | BMI 26.29 kg/m Physical Exam Constitutional: He is oriented to person, place, and time. He appears well-developed and we ll-nourished. HENT: Head: Normocephalic. Eyes: No scleral icterus. Neck: Normal carotid pulses and no JVD present. Carotid bruit is not present. Cardiovascular: S1 normal, S2 normal, normal heart sounds, intact distal pulses and normal pulses. An irregularly irregular rhythm present. PMI is not displaced. Exam reveals no ly p and no midsystolic click. No murmur heard. [...] There is no abdominal tenderness. Musculoskeletal: General: No edema. Neurological: He is alert and oriented to person, place, and time. Gait normal. Skin: Skin is warm and dry. No cyanosis. Nails show no clubbing. Psychiatric: He has a normal mood and affect. His mood appears not anxious. He does not exh ibit a depressed mood. Vitals reviewed. ECG: Reviewed by me notable for atrial fibrillation with rapid ventricular rate, heart rate 105, nonspecific T wave flattening diffusely. [...] PLT 275 12/07/2019 I [facility] 12/07/2019, as well as previously, [facility] for hospitalization,including H&P, Discharge Summary and lab reports on 02/13/2019 and PCP note 04/17/2019. Cardiovascular diagnostic testing interpreted and reviewed by me with the patient today: 24 hour holter monitor June 2019: 24-hour [...] he had presented with significant tachycardia requiri ng hospitalization a few days ago. He states that he did not take his medications the day of his admission, and had said the same thing when he was here for his office visit previously . We once again discussed at length importance of better medical compliance. His most rece nt Holter monitor did suggest suboptimal rate control, however, in the context of some degre e of baseline medical noncompliance. He would benefit from indefinite anticoagulation therapy. [facility] with [facility] INRs. He may benefit from conversion to a NOAC - I have o nce again supplied him with a list and he [...] 3. Medical compliance once again reinforced. 4. Continue current medications for now. Consider conversion of warfarin to NOAC. 5. Follow-up with Noreen Rosario PA-C within 2 months with ECG at that time. 6. Follow-up visit with me in 6 months following echocardiography. Portions of this report were transcribed using voice recognition software. Every effort wa s made to ensure accuracy; however, inadvertent computerized electric power machine operator errors may be pre sent. Electronically signed by: Denisse Sweeney MD PhD FACC 12/11/2019 documented in t his encounter Plan of [...] | | | | | [place] [address] | | | | | | [phone] | | | | | | | | +--------+ + + + + | 04/08/ | Office | Cardiology | Del Sweeney | | | 2019 | Visit | | MD Anam [address] | | | | | | [address] [place] | | | | | | [place] [address] | | | | | | [phone] | | | | | | | | +--------+ + + + + documented as of this encounter Procedures + +--------+ + + + | Procedure Name | Priori | Date/Time | Associated Diagnosis | Comments | | | ty | | | | + +--------+ + + + | LABS - EXTERNAL SCAN | | 03/05/2020 | | Results for this | | | | 12:00 AM | | procedure are in the | | | | PDT | | results section. | + +--------+ + + + | LABS - EXTERNAL SCAN | | 01/31/2020 | | Results for this | | | | 12:00 AM | | procedure are in the | | | | PDT | | results section. | + +--------+ + + + documented in this encounter Results LABS - EXTERNAL SCAN (03/05/2020 12:00 AM PDT) + + + | Narrative | Performed At | + + + | Ordered by an | | | unspecified provider. | | + + + LABS - EXTERNAL SCAN (01/31/2020 12:00 AM PDT) + + + | Narrative | Performed At | + + + | Ordered by an | | | unspecified provider. | | + + + documented in this encounter Visit Diagnoses + + | Diagnosis | + + | Essential hypertension - Primary Unspecified essential hypertension | + + | Chronic systolic congestive heart failure (HCC) Chronic systolic heart failure | + + | Atrial fibrillation, unspecified type (HCC) | + + documented in this encounter
--- OUTSIDE RECORDS SUMMARY | ~2020-03-10 | XMS | Encounter Summary ---
Demographics + + + | Address | [address] | | | [place] [address] | + + + | Home Phone | | + + + | Preferred Language | Unknown | + + + | Marital Status | | + + + | Bahai Affiliation | Unknown | + + + | Race | Unknown | + + + | Ethnic Group | Unknown | + + + Author + + + | Author | [facility] | | | and Ernesto[place] | + + + | Organization | [facility] | | | and Ernestoana [...] Team Providers + +------+ + | Care Drafter (Cad) Electrical Name | Role | Phone | + +------+ + | Josafat Steve PCP | | + +------+ + Encounter Details +--------+ + + + + | Date | Type | Department | Care Team | Description | +--------+ + + + + | 03/10/ | Abstract | [facility] [place] | Del Sweeney | | | 2020 | | CARDIOLOGY [address] | MD [address]hav[address] | | | | | [place], | [address] [place] | | | | | [place] [address] | [place], [place] [address] | | | | | [phone] | [phone] | | | | | | | [...] | | | | | [place] [address] | | | | | | [phone] | | | | | | | | +--------+ + + + + | 04/08/ | Office | Cardiology | Del Sweeney | | | 2019 | Visit | | MD Dhaval [address] | | | | | | [address] [place] | | | | | | [place] [address] | | | | | | [phone] | | | | | | | | +--------+ + + + + documented as of this encounter Procedures + +--------+ + + + | Procedure Name | Priori | Date/Time | Associated Diagnosis | Comments | | | ty | | | | + +--------+ + + + | EXTERNAL LAB: B TYPE | Routin | 03/05/2020 | | Results for this | | NATURETIC PEPTIDE | e | | | procedure are in the | | | | | | results section. | + +--------+ + + + documented in this encounter Results External Lab: B Type Naturetic Peptide (03/05/2020) + +---------+ + + + | Component | Value | Ref Range | Performed | Pathologist | | | | | At | Signature | + +---------+ + + + | B-Type | 352 (A) | 100 | | | | Naturetic | | | | | | Peptide, | | | | | | External | | | | | + +---------+ + + + + + | Specimen | + + | Blood | + + documented in this encounter Visit Diagnoses Not on filedocumented in this encounter"
--- OUTSIDE RECORDS SUMMARY | ~2020-03-10 | XMS | Encounter Summary ---
Demographics + + + | Address | [address] | | | [place] [address] | + + + | Home Phone | | + + + | Preferred Language | Unknown | + + + | Marital Status | | + + + | Restorationism Affiliation | Unknown | + + + | Race | Unknown | + + + | Ethnic Group | Unknown | + + + Author + + + | Author | [facility] | | | and [place]esto[place] | + + + | Organization | [facility] | | | and Ernesto[place] [...] Team Providers + +------+ + | Care Bank Clerk Name | Role | Phone | + +------+ + | Josafat Steve PCP | | + +------+ + Reason for Visit +--------+--------+ + | Reason | Onset | Comments | | | Date | | +--------+--------+ + | LABS | 02/20/ | | | | 2020 | | +--------+--------+ + Encounter Details +--------+ + + + + | Date | Type | Department | Care Team | Description | +--------+ + + + + | 02/20/ | Telephone | [facility] [place] | Noreen Rosario | LABS | | 2020 | | CARDIOLOGY [address] | [address] | | | | | [place], | [address] [place] | | | | | [place] [address] | [place] [address] | | | | | [phone] | | | | | | | [...] this encounter Miscellaneous Notes Telephone Encounter - Jaiden Velazquez RN - 02/21/2020 10:23 AM PDTBMP ordered....... .....................................Jaiden Velazquez RN, on 02/21/20 at 10:23 AM PDT elephone [place] Jolly Loja, Sausage Grinder - 02/21/2020 10:10 AM PDTPatient is needing to com plete his BMP ( Needs ordered), BNP (already ordered) prior to his visit with Noreen qureshi 02/27/20. Left a voicemail for the patient to give us a call back regarding his labs. Jose Elias benoit [facility]ax the [facility] in [place]. documented in this encounter Plan of Treatment [...] | | | | | [place] [address] | | | | | | [phone] | | | | | | | | +--------+ + + + + | 04/08/ | Office | Cardiology | Del Sweeney | | 2019 | Visit | | MD Dhaval [address] | | | | | | [address] [place] | | | | | | [place] [address] | | | | | | [phone] | | | | | | | | +--------+ + + + + + +------+--------+ + + | Name | Type | Priori | Associated Diagnoses | Order Schedule | | | | ty | | | + +------+--------+ + + | Basic Metabolic | Lab | Routin | Essential | Expected: | | Panel | | e | hypertension | 02/21/2020, Expires: | | | | | | 02/20/2021 | + +------+--------+ + + documented as of this encounter Visit Diagnoses + + | Diagnosis | + + | Essential hypertension - Primary Unspecified essential hypertension | + + documented in this encounter"
--- OUTSIDE RECORDS SUMMARY | ~2020-03-10 | XMS | Encounter Summary ---
Demographics + + + | Address | [address] | | | [place] [address] | + + + | Home Phone | | + + + | Preferred Language | Unknown | + + + | Marital Status | | + + + | Temple Affiliation | Unknown | + + + | Race | Unknown | + + + | Ethnic Group | Unknown | + + + Author + + + | Author | [facility] | | | and [place]esto[place] | + + + | Organization | [facility] | | | and Ernesto[place] [...] Team Providers + +------+ + | Care Cloak Room Attendant Name | Role | Phone | + +------+ + | Josafat Steve PCP | | + +------+ + Reason for Visit + +--------+ + | Reason | Onset | Comments | | | Date | | + +--------+ + | Appointment | 12/11/ | | | | 2020 | | + +--------+ + Encounter Details +--------+ + + + + | Date | Type | Department | Care Team | Description | +--------+ + + + + | 12/11/ | Telephone | [facility] [place] | Noreen Rosario | Appointment | | 2020 | | CARDIOLOGY [address] | [address] | | | | | [place], | [address] [place] | | | | | [place] [address] | [place] [address] | | | | | [phone] | | | | | | | [...] this encounter Miscellaneous Notes Telephone Encounter - Samantha Gomez - 12/12/2019 12:17 PM PDTCalled patient and cancelle d his appt for 12/17/19 and moved to 02/13/20 @ 1pm. MA elephone Encounter - Samantha Melendez - 12/12/2019 7:53 AM PDT- ---- Message from Noreen Rosario PA-C sent at 12/11/2019 4:07 PM PDT ----- Regarding: f/u Please re-schedule patient from office visit on 12/16 to about 2 months from now with me. Thank you! documented in this encounte r Plan of Treatment +--------+ + + + + | Date | Type | Specialty | Care Team | Description | +--------+ + + + + | 04/02/ | Appointment | Radiology | Noreen Rosario | | 2019 | | | [address] | | | | | | [place] | | | | | | [place] [address] | | | | | | [phone] | | | | | | | | +--------+ + + + + | 04/08/ | Office | Cardiology | Del Sweeney | | 2019 | Visit | | MD Dhaval [address] | | | | | | [address] [place] | | | | | | [place] [address] | | | | | | [phone] | | | | | | | | +--------+ + + + + documented as of this encounter Visit Diagnoses Not on filedocumented in this encounter"
--- OUTSIDE RECORDS SUMMARY | ~2020-03-10 | XMS | Encounter Summary ---
Demographics + + + | Address | [address] | | | [place] [address] | + + + | Home Phone | | + + + | Preferred Language | Unknown | + + + | Marital Status | | + + + | Jehovah'S Witness Affiliation | Unknown | + + + | Race | Unknown | + + + | Ethnic Group | Unknown | + + + Author + + + | Author | [facility] | | | and [place] | + + + | Organization | [facility] | | | and [place] [...] Team Providers + +------+ + | Care Manager Metrology Name | Role | Phone | + +------+ + | Josafat Steve PCP | | + +------+ + Reason for Visit + + + | Reason | Comments | + + + | Follow-up | | + + + | Hypertension | | + + + | Atrial Fibrillation | | + + + Follow Up [...] fibrillation | [address] | [address] | | | | | (HCC) | [address] | | | | | [place] | [place] [address] | [place], [place] | | | | | (primary) | Phone: | [phone] Phone: | | | | | hypertension | [phone] | [phone] | | | | | Chronic | Fax: | Fax: | | | | | systolic | [phone] | [phone] | | | | | (congestive) | [...] Description | +--------+---------+ + + + | 02/26/ | Office | [facility] | Rosario Noreen | [facility] | | 2020 | Visit | CARDIOLOGY [address] | [address] | hypertension | | | | [place], | [address] [place] | (Primary Dx); | | | | [place] [address] | [place] [address] | Chronic systolic | | | | [phone] | [phone] | congestive heart | | | | [...] + + + | Blood Pressure | 100/68 | 02/27/2020 2:13 PM | | | | | PDT | | + + + + + | Pulse | 60 | 02/27/2020 2:13 PM | | | | | PDT | | + + + + + | Temperature | - | - | | + + + + + | Respiratory Rate | 10 | 02/27/2020 2:13 PM | | | | | PDT | | + + + + + | Oxygen Saturation | - | - | | + + + + + | Inhaled Oxygen | - | - | | | Concentration | | | | + + + + + | Weight | 88 kg (194 lb) | 02/27/2020 2:13 PM | | | | | PDT | | + + + + + | Height | 175.3 cm (5' 9") | 02/27/2020 2:13 PM | | | | | PDT | | + + + + + | Body Mass Index | 28.65 | 02/27/2020 2:13 PM | | | | | PDT | | + + + + + documented in this encounter Progress Notes Noreen Rosario PA-C - 02/27/2020 2:30 PM PDTFormatting of this note might be differen t from the original. PATIENT NAME: Griffin Lambert : 1945: AGE: 75 y.o. REFERRED BY: Josafat Steve MD PRIMARY CARE: Josafat Steve CARDIOLOGY OFFICE VISIT Date of Service: 02/27/20 HISTORY OF PRESENT ILLNESS: Griffin Lambert is a 75 y.o. male with a history of heart failure and persistent atrial fibrillation. He is being seen today for a follow-up visit. He was last seen 02/13/20 at which time he had A fib RVR with HR 135. He had admittedly not taken his medication for several days thought. As he was without symptoms, he was sent peng e and recommended to take his medications as prescribed. Since this time, he reports taking his medications regularly. He continues to have ankle s welling. He denies any shortness of breath, orthopnea, chest pain, palpitations, dyspnea, o r any exertional symptoms. 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 He has foll owed up with the coumadin clinic in [place], and has plans for further follow up. He did n ot follow up with PCP as he forgot about this appointment. He describes drinking 3 cups of coffee in the morning, and up to 8 glasses of tea throughou t the day. He denies ETOH use. Pertinent historical clinical information: He was initially [...] been checking his INR is locally at [facility]. He has no known history of CAD or myocardial infarction, stroke or TIAs. 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 For your bloo d pressure and heart 30 tablet 11 metoprolol succinate (TOPROL-XL) 200 mg ER tablet Take 1 tablet by mouth Daily. For you r heart rate and your blood pressure 30 tablet 11 potassium chloride (KLOR-CON M20) 20 mEq ER tablet Take 1 tablet by mouth 2 times daily . 60 tablet 0 warfarin (COUMADIN) 5 mg tablet Take 7.5 mg by mouth five times weekly on Tuesday, , Tuesday, and Tuesday Managed by Josafat Steve at [facility] warfarin (COUMADIN) 5 mg tablet Take 5 mg by mouth twice weekly on Tuesday and Tuesday Managed by Josafat Steve at [facility] No current facility-administered medications for this visit. ALLERGIES No Known Allergies ROS I have reviewed the Review of Systems form dated today and scanned into the media tab. OBJECTIVE: PHYSICAL EXAM BP 100/68 | Pulse 60 | Resp 10 | Ht 1.753 m (5' 9") | Wt 88 kg (194 lb) | BMI 28.65 kg /m Physical Exam Constitutional: He is oriented to person, place, and time. He appears well-developed and we ll-nourished. HENT: Head: Normocephalic. Eyes: No scleral icterus. Neck: Normal carotid pulses and no JVD present. Carotid bruit is not present. Cardiovascular: Normal rate, S1 normal, S2 normal, normal heart sounds, intact distal pulse s and normal pulses. An irregularly irregular rhythm present. PMI is not displaced. Exam rev eals no gallop and no midsystolic click. No [...] ibit a depressed mood. Vitals reviewed. ECG: None today Previously notable for atrial fibrillation with RVR, HR 135, nonspecific T wave abnormality . Reviewed by me notable for atrial fibrillation [...] HCT 43.7 12/07/2019 PLT 275 12/07/2019 I previously reviewed records from [facility] hospitalization and d ischarge summary 12/07/2019, as well as previously, [facility] for hospitalizatio n,including H&P, Discharge Summary and lab reports on [...] indeed [facility]. He states [...] of some degree of baseline medical noncompliance. His heart rate is well controlled today. He would benefit from indefinite anticoagulation therapy. He has been followed at his [facility] Coumadin clinic with therapeutic INRs. He may benefit from conversion to a NOAC - I have p reviously supplied him with a list. 2. Heart failure - this was noticed [...] will als o check a BNP periodically. 3. Dependent edema - patient has significant edema in the setting of inactivity. He has n o heart failure symptoms currently, though has had in the past. I recommend he continue his current dose of diuretic, however, he would benefit from elevation of his legs while watchi ng TV, as well as increased activity such as walking. Encourage regular walking of 45 minute s daily PLAN: 1. Echocardiogram as scheduled in March 2. Check BNP and BMP 3. Medical compliance once again reinforced. 4. Encourage a regular exercise program 5. Decrease caffeine usage. 6. Elevate legs 7. Follow up with his PCP 8. Follow up with Dr. Sweeney after his echocardiogram, I would be happy to see this patien t in the future. Portions of this report were transcribed using voice recognition software. Every effort wa s made to ensure accuracy; however, inadvertent computerized steam shovel operating engineer errors may be pre sent. Electronically signed by: Noreen Rosario PA-C 02/27/2020 documented in th is encounter Plan of [...] [place] | | | | | | [place] [address] | | | | | | [phone] | | | | | | | | +--------+ + + + + | 04/08/ | Office | Cardiology | Del Sweeney | | | 2019 | Visit | | MD Dhaval [address] | | | | | | [address] [place] | | | | | | [place] [address] | | | | | | [phone] | | | | | | | [...]
--- OUTSIDE RECORDS SUMMARY | ~2020-03-10 | XMS | Encounter Summary ---
Demographics + + + | Address | [address] | | | [place] [address] | + + + | Home Phone | | + + + | Preferred Language | Unknown | + + + | Marital Status | | + + + | Denominational Affiliation | Unknown | + + + | Race | Unknown | + + + | Ethnic Group | Unknown | + + + Author + + + | Author | [facility] | | | and [place] | + + + | Organization | [facility] | | | and [place]esto[facility] [...] Team Providers + +------+ + | Care Clinical Application Manager Name | Role | Phone | + +------+ + | Josafat Steve PCP | | + +------+ + Reason for Visit + + + | Reason | Comments | + + + | Tachycardia | | + + + Auth/Cert +--------+--------+ + + + + | [...] | | | | | | | ([facility]) | | | +--------+--------+ + + + + Encounter Details +--------+ + + + + | Date | Type | Department | Care Team | Description | +--------+ + + + + | 12/04/ | Hospital | [facility] | Josafat Leach | Atrial fibrillation | | 2020 - | Encounter | MED CTR ICU [address] | Lucas Long MD | with RVR ([facility]) | | | | [place], | [address] | (Primary Dx); Acute | | 12/06/ | | [place] [address] | [facility] | on chronic systolic | | 2019 | | [phone] | [address] | (congestive) heart | | | | | | failure (HCC); | | | | | Андрей Carvajal | Essential | | | | | MD Josafat [address] | hypertension | | | | | [address] [place] | | | | | | [place] [address] | | | | | | [phone] | | | | | | | | | | | | Abdirahman Sinha MD | | | | | | [address] | | | | | | [place], [place] | | | | | | [address] | | | | | | | | | | | | Augusta Deluna MD | | | | | | [address] | | | | | | [place], [place] | | | | | | [address] | | | | | | | [...] + + + | Blood Pressure | 113/72 | 12/07/2019 7:31 AM | | | | | PDT | | + + + + + | Pulse | 80 | 12/07/2019 7:31 AM | | | | | PDT | | + + + + + | Temperature | 36.4 C (97.5 F) | 12/07/2019 7:31 AM | | | | | PDT | | + + + + + | Respiratory Rate | 20 | 12/07/2019 7:31 AM | | | | | PDT | | + + + + + | Oxygen Saturation | 96% | 12/07/2019 7:31 AM | | | | | PDT | | + + + + + | Inhaled Oxygen | - | - | | | Concentration | | | | + + + + + | Weight | 79.3 kg (174 lb 13.2 | 12/06/2019 6:45 AM | | | | oz) | PDT | | + + + + + | Height | 172.7 cm (5' 8") | 12/05/2019 6:20 PM | | | | | PDT | | + + + + + | Body Mass Index | 26.58 | 12/05/2019 6:20 PM | | | | | PDT | | + + + + + documented in this encounter Discharge Summaries Augusta Deluna MD - 12/07/2019 8:58 AM PDT [facility] IN HOSPITALIST DISCHARGE SUMMARY Pt. Name/Age/: Griffin Lambert 74 y.o. 1945 Date of Admission: 12/05/2019 Date of Discharge: 12/07/2019 Admitting Physician: Abdirahman Sinha MD Primary Care Provider: Josafat Steve Discharging Physician: Augusta Deluna MD DISCHARGE DIAGNOSES: Active Hospital Problems Diagnosis Essential hypertension Chronic systolic congestive heart failure Atrial fibrillation Resolved Hospital Problems Diagnosis Atrial fibrillation with RVR Acute on chronic systolic (congestive) heart failure HOSPITAL COURSE: Please refer to the H&P for full details and the most recent rounding rounding (progress) n ote. 74 yo M with history of a fib, hypertension, HFrEF who presented with a fib with RVR. #A fib with RVR #Chronic atrial fibrillation Patient has history of a fib, takes diltiazem and metoprolol as outpatient. Presented from outpatient US appointment found to be in RVR. Started on IV dilt initially, then esmolol, th en loaded with digoxin. Resumed oral medications on day 2 of hospitalization with improvemen t. TSH within normal limits. Echo showed decreased systolic function compared with prior but this was also in the s/o RVR. Coumadin continued per pharmacy. Heart rate was in the 80s on the date of discharge. #HFrEF, acute Patient received IV diuretic here with adequate diuresis. Recommended twice a day dosing fo r lasix as outpatient. As above, echo showed biventricular reduced systolic function. Will n eed ongoing Cardiology follow up as outpatient, is on appropriate medication package. Patient is discharging home. DISCHARGE MEDICATIONS: Discharge Medications Changed Medications Details furosemide 20 mg tablet Take 2 tablets by mouth 2 times daily. What changed: how much to take when to take this aka: LASIX lisinopril 2.5 MG tablet What changed: What Changed: Instructions aka: PRINIVIL,ZESTRIL potassium chloride 20 mEq ER tablet Take 1 tablet by mouth 2 times daily. What changed: when to take this aka: Klor-Con M20 Unchanged Medications Details CARDURA XL 4 MG 24 hr tablet Generic drug: doxazosin Take 4 mg by mouth daily (with breakfast). CARTIA XT 240 MG 24 hr capsule Generic drug: dilTIAZem TAKE 1 CAPSULE BY MOUTH IN THE MORNING ON AN EMPTY STOMACH cyclobenzaprine 10 mg tablet Take 10 mg by mouth 3 (three) times daily. aka: FLEXERIL metoprolol succinate 50 mg 24 hr tablet TAKE 4 TABLETS BY MOUTH ONCE DAILY aka: TOPROL-XL warfarin 5 mg tablet Take 7.5 mg by mouth five times weekly on Tuesday, Tuesday, Tuesday, and Tuesday Managed by Josafat Steve at [facility] aka: COUMADIN warfarin 5 mg tablet Take 5 mg by mouth twice weekly on Tuesday and Tuesday Managed by Josafat Steve at [facility] aka: COUMADIN Most recent weight: Input and output for last 24hrs: Wt Readings from Last 1 Encounters: 12/06/19 79.3 kg (174 lb 13.2 oz) I/O last 24 Hours: In: 1040 [P.O.:1040] Out: 3600 [Urine:3600] Vitals Ranges: Temp: [36.3 C (97.3 F)-36.8 C (98.3 F)] 36.4 C (97.5 F) Pulse: [64-108] 80 Resp: [20-22] 20 BP: (102-137)/(58-94) 113/72 Vitals: Temp: 36.4 C (97.5 F) BP: 113/72 Pulse: 80 Resp: 20 SpO2: 96 % SpO2 96 % on room air at flow rate L/min PHYSICAL EXAM: Patient seen and examined by me on 12/07/19 Gen: WDWN, No acute distress CV: IIRR no m/r/g Pulm: LCAB Ext: no edema PROCEDURES AND CONSULTS: Procedures: None Consults: None PENDING RESULTS: None DISPOSITION AND DISCHARGE INSTRUCTIONS: Follow-up Information Schedule an appointment as soon as possible for a visit with Josafat Steve. Specialty: Family Medicine Why: Hospital follow up Contact information: [address] [place] [address] Schedule an appointment as soon as possible for a visit with Del Sweeney MD. Specialty: Cardiology Why: Cardiology follow up Contact information: [place] [address] Condition: stable Diet: cardiac Less than 30 minutes were spent on discharge and coordination of post-hospital care. Electronically signed by: Augusta Deluna MD, 12/07/2019 8:58 AM [facility] documented in this enco unter Discharge Instructions Instructions Augusta Deluna MD - 12/07/2019Gary, You were hospitalized with atrial fibrillation. We used IV medications to slow your heart r ate down and you can resume your normal medications at home. I would recommend taking 40 mg lasix twice a day instead of 60 mg once a day as you were previously were. Follow up with Dr Sweeney and your primary care doctor within the next 1-2 weeks. Augusta Deluna MD documented in this encounter Medications at Time of Discharge [...] | | | | | | and TuesdayMan | | | | | | | by Josafat lewis | | | | | | | [facility] | | | | | | | [facility] | | | | | + + + +---------+ + + | warfarin | Take 5 mg by mouth | | 0 | | | | (COUMADIN) 5 mg | twice weekly on | | | | | | tablet | Tuesday and Tuesday | | | | | | | Managed by Josafat | | | | | | | [facility] | | | | | | | [facility] | | | | | + + + +---------+ + + | furosemide (LASIX) | Take 2 tablets by | 30 | 1 | 12/07/19 | | | 20 mg tablet | mouth 2 times daily. | tablet | | 20 | 0 | + + + +---------+ + + | lisinopril | | | 3 | 05/10/20 | | | (PRINIVIL,ZESTRIL) | | | [...] + + documented as of this encounter Progress Notes Cindy Meeks, PharmD - 12/07/2019 9:11 AM PDTFormatting of this note might be differen t from the original. WARFARIN PER PHARMACY PROTOCOL: Subjective/Objective: Griffin Lambert is a 74 y.o. male admitted on 12/05/2019 and is receiving warfarin. Dwight siegel has a past medical history of Atrial fibrillation (HCC), Chronic systolic congestive hear t failure (HCC), Essential hypertension, MCC (current) use of anticoagulants, and Pros garnica hypertrophy. Goal INR: 2-3 []Initiation [x]chronic Home regimen: 47.5 mg/week-> 5 mg on Tuesday/Tuesday and 7.5 mg on all other days per dwight christal; from chart review: 5 mg /Tue and 7.5 mg all other days Managed by:Anticoagulation Clinic under the supervision of Dr. Josafat Steve Sensitizers:age; acute CHF Drug Interactions: none major at this time NON-valvular AFIB patients: [id number] score (max 9): 4 [x]CHF, [x]HTN, [x]Age > 75 (2), []DM, [] prior CVA,VTE (2), []SD,PAD, []Age 64-74, []Fema le Recent Labs Lab 12/07/19 0315 12/06/19 0450 12/06/19 0400 12/06/19 0359 12/05/19 1334 CREA 1.28 -- 1.56* -- 1.16 HGB 13.5 -- -- 12.4* 14.4 HCT 43.7 -- -- 40.4 44.8 PLT 275 -- -- 271 282 INR 2.8* 2.6* -- -- 2.8* Date Hgb Hct Platelets INR Warfarin Dose 12/04 14.4 44.8 282 2.8 5 mg 12/05 12.4 40.4 271 2.6 6 mg 12/06 13.5 43.7 275 2.8 6 mg Assessment: The INR is within the target range of 2-3 for atrial fibrillation Patient reports that he did NOT take his 12/04 warfarin dose Plan: 1. Warfarin 6 mg po daily starting 12/06/19 2. Medication profile reviewed for potential drug-drug interactions 3. Labs in am: INR 4. 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 Pharmacist to follow daily Warfarin Dosing Nomogram Per P&T-approved Electronically signed by: Cindy Meeks PharmD 12/07/2019 9:11 AM Cindy Mendenhall PharmD - 12/06/2019 11:59 AM PDTFormatting of this note might be different from the origin al. WARFARIN PER PHARMACY PROTOCOL: Subjective/Objective: Griffin Lambert is a 74 y.o. male admitted on 12/05/2019 and is receiving warfarin. Dwight siegel has a past medical history of Atrial fibrillation (HCC), Chronic systolic congestive hear t failure (HCC), Essential hypertension, MCC (current) use of anticoagulants, and Pros garnica hypertrophy. Goal INR: 2-3 []Initiation [x]chronic Home regimen: 47.5 mg/week-> 5 mg on Tuesday/Tuesday and 7.5 mg on all other days per patien t; from chart review: 5 mg /Tue and 7.5 mg all other days Managed by:Anticoagulation Clinic under the supervision of Dr. Josafat Steve Sensitizers:age; acute CHF Drug Interactions: none major at this time NON-valvular AFIB patients: [id number] score (max 9): 4 [x]CHF, [x]HTN, [x]Age > 75 (2), []DM, [] prior CVA,VTE (2), []SD,PAD, []Age 64-74, []Fema le Recent Labs Lab 12/06/19 0450 12/06/19 0400 12/06/19 0359 12/05/19 1334 CREA -- 1.56* -- 1.16 HGB -- -- 12.4* 14.4 HCT -- -- 40.4 44.8 PLT -- -- 271 282 INR 2.6* -- -- 2.8* Date Hgb Hct Platelets INR Warfarin Dose 12/04 14.4 44.8 282 2.8 5 mg 12/05 12.4 40.4 271 2.6 6 mg Assessment: The INR is within the target range of 2-3 for atrial fibrillation Patient reports that he did NOT take his 12/04 warfarin dose Plan: 1. Warfarin 6 mg po daily starting 12/06/19 2. Medication profile reviewed for potential drug-drug interactions 3. Labs in am: Hgb, Hct, INR 4. 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 Pharmacist to follow daily Warfarin Dosing Nomogram Per P&T-approved Electronically signed by: Cindy Meeks PharmD 12/06/2019 11:59 AM Augusta Tabares M D - 12/06/2019 8:[address] [facility] HOSPITALIST PROGRESS NOTE Patient: Griffin Lambert : 1945: Age: 74 y.o. MedRec: [id number] Admission date: 12/05/2019 Hospital day # : 1 Physician author: Augusta Deluna MD Today: 12/06/2019 Assessment and Hospital Course Active Hospital Problems Diagnosis Atrial fibrillation with RVR Acute on chronic systolic (congestive) heart failure Essential hypertension Resolved Hospital Problems No resolved problems to display. 74 yo M with history of a fib, hypertension, HFrEF who presented with a fib with RVR. Plan #A fib with RVR #Chronic atrial fibrillation Patient has history of a fib, takes diltiazem and metoprolol as outpatient. Started on IV d ilt initially, then esmolol, then loaded with digoxin. Still tachycardic though overall impr indra. Resume home metoprolol as blood pressure can tolerate and will also consider adding ba ck diltiazem. TSH within normal limits. Echo read from yesterday pending. Coumadin per pharm acy. #HFrEF, acute Mildly decreased EF on prior echo. Elevated BNP here and patient reported increased leg swe lling. Continue IV lasix for now, monitor electrolytes and renal function closely. #Hypertension Labile blood pressures here. Hold lisinopril for now, resumed metoprolol. FEN: cardiac Ppx: warfarin Disposition: remain in stepdown for now Subjective CC: no complaints Patient reports he feels completely normal. Denies palpitations or chest pain. Denies short ness of breath. Denies leg swelling. Wants to go home. ROS was performed and was negative except as noted above. Exam Gen: WDWN, nad HEENT: MMM, neck supple CV: IIRR no m/r/g Pulm: LCAB Abdominal: soft, nontender, nondistended, normal bowel tones Extremities: well perfused, trace edema Skin: warm, dry, no rashes Neuro: alert, no focal deficits Psych: normal mood and affect Allergies: No Known Allergies Current Medications: Current Facility-Administered Medications Medication Dose Route Frequency Provider Last Rate Last Dose acetaminophen (TYLENOL) tablet 650 mg 650 mg Oral Q4H PRN Abdirahman Sinha MD aluminum & magnesium hydroxide-simethicone (MAALOX PLUS REGULAR STRENGTH) 200-200-20 mg /5 mL suspension 30 mL 30 mL Oral Q4H PRN Abdirahman Sinha MD furosemide (LASIX) injection 40 mg 40 mg Intravenous BID (8 and 16) Bert Cuevas D 40 mg at 12/06/19 0818 hydrALAZINE (APRESOLINE) injection 10 mg 10 mg Intravenous Q4H PRN Abdirahman Sinha MD melatonin tablet 3 mg 3 mg Oral Nightly Abdirahman Sinha MD 3 mg at 12/05/19 2153 metoprolol tartrate (LOPRESSOR) injection 5 mg 5 mg Intravenous Q4H PRN Abdirahman anthony MD 5 mg at 12/06/19 0824 metoprolol tartrate (LOPRESSOR) tablet 25 mg 25 mg Oral TID Augusta Deluna MD ondansetron (ZOFRAN) injection 4 mg 4 mg Intravenous Q6H PRN Abdirahman Sinha MD senna (SENOKOT) tablet 8.6 mg 8.6 mg Oral BID PRN Abdirahman Sinha MD warfarin per pharmacy Other Pharmacy Consult Abdirahman Sinha MD Current Infusions: Objective Data Point of care glucose No results for input(s): POCGLU in the last 168 hours. Labs last 24 hours Recent Results (from the past 24 hour(s)) ECHO Complete Collection Time: 12/05/19 1:00 PM Result Value Ref Range LA volume 81.41 mL Ascending aorta 2.88 cm MV Area by P 1/2 method 6.26 cm2 LVOT diameter 1.96 cm LVOT peak jolene 56.79 cm/s AV peak jolene 131.07 cm/s AV peak gradient 6.87 mmHg MV Pressure 1/2 time 35.16 msec LA Volume Index 40 mL/m2 AV LVOT Peak Gradient 1.33 mmHg TR Peak Gradient 24 mmHg TR Velocity 246.94 cm MV Deceleration [place] 653.87 cm/s2 MV Deceleration Time 121.25 msec MV E/A Ratio 880.89 MV Peak A-Wave 0.09 cm/s MV Peak E-Wave 79.28 cm/s RA Area 18.99 cm2 LA Area 24.29 cm2 Vitals Heart Rate Rest 155 Vitals BP Systolic 120 Vitals BP Diastolic 91 Vitals Height 175.3 Vitals Weight 89.20 Vitals BSA 2.05 Vitals BMI 29.04 Aortic Root Diameter 3.5 cm LV Addison's Biplane EF 20 % CBC with Differential Collection Time: 12/05/19 1:34 PM Result Value Ref Range WBC 9.5 4.0 - 11.0 K/uL RBC 5.01 4.30 - 5.70 M/uL Hemoglobin 14.4 13.5 - 18.0 g/dL Hematocrit 44.8 40.0 - 51.0 % MCV 89.4 83.0 - 101.0 fL MCH 28.7 28.0 - 35.0 pg MCHC 32.1 32.0 - 36.0 g/dL RDW-CV 16.7 (H) <15.0 % RDW-SD 54.8 (H) 35.1 - 46.3 fL Platelet Count 282 140 - 440 K/uL MPV 9.3 6.5 - 12.4 fL % Neutrophils 75.6 45.0 - 82.0 % % Lymphocytes 14.4 (L) 20.0 - 45.0 % % Monocytes 8.6 4.0 - 12.0 % % Eosinophils 0.7 0.0 - 5.0 % % Basophils 0.4 0.0 - 1.0 % % Immature Granulocytes 0.3 0.0 - 0.4 % Absolute Neutrophils 7.14 1.80 - 8.50 K/uL Absolute Lymphocytes 1.36 0.60 - 3.20 K/uL Absolute Monocytes 0.81 0.00 - 1.00 K/uL Absolute Eosinophils 0.07 0.00 - 0.40 K/uL Absolute Basophils 0.04 0.00 - 0.10 K/uL Absolute Immature Granulocytes 0.03 0.00 - 0.03 K/uL % nRBC 0 0 - 2 per 100 WBCs Absolute nRBC 0.00 0.00 - 0.01 K/uL Comprehensive Metabolic Panel Collection Time: 12/05/19 1:34 PM Result Value Ref Range Na 137 136 - 145 mmol/L K 3.8 3.4 - 5.1 mmol/L Cl 101 98 - 107 mmol/L CO2 28 20 - 31 mmol/L Anion Gap 8 3 - 16 mmol/L Glucose 96 60 - 106 mg/dL BUN 13 9 - 23 mg/dL Creatinine 1.16 0.70 - 1.30 mg/dL eGFR if not >60 >=60 mL/min/1.73m2 Calcium 9.4 8.7 - 10.4 mg/dL Albumin 4.5 3.2 - 4.8 g/dL Bilirubin Total 0.6 0.3 - 1.2 mg/dL Total Protein 7.0 5.7 - 8.2 g/dL AST 19 0 - 34 U/L ALT 17 10 - 49 U/L Alkaline Phosphatase 71 46 - 116 U/L Globulin 2.5 2.1 - 3.8 g/dL Albumin/Globulin Ratio 1.8 0.8 - 1.9 BUN/Creatinine Ratio 11.2 Troponin I Collection Time: 12/05/19 1:34 PM Result Value Ref Range Troponin I 0.05 <0.06 ng/mL B Type Natriuretic Peptide Collection Time: 12/05/19 1:34 PM Result Value Ref Range BNP 605 (H) <100 pg/mL Extra Green Top Tube Collection Time: 12/05/19 1:34 PM Result Value Ref Range Extra Green Top Tube Done Extra Fine Top Tube Collection Time: 12/05/19 1:34 PM Result Value Ref Range Extra Fine Top Tube Done Extra Blue Top Tube Collection Time: 12/05/19 1:34 PM Result Value Ref Range Extra Blue Top Tube Done Extra Lavender Top Tube Collection Time: 12/05/19 1:34 PM Result Value Ref Range Extra Lavender Top Tube Done Magnesium Collection Time: 12/05/19 1:34 PM Result Value Ref Range Magnesium 1.9 1.6 - 2.6 mg/dL Protime INR Collection Time: 12/05/19 1:34 PM Result Value Ref Range Prothrombin Time 30.6 (H) 11.3 - 13.9 seconds INR 2.8 (H) 0.9 - 1.1 CBC with Differential Collection Time: 12/06/19 3:59 AM Result Value Ref Range WBC 6.2 4.0 - 11.0 K/uL RBC 4.39 4.30 - 5.70 M/uL Hemoglobin 12.4 (L) 13.5 - 18.0 g/dL Hematocrit 40.4 40.0 - 51.0 % MCV 92.0 83.0 - 101.0 fL MCH 28.2 28.0 - 35.0 pg MCHC 30.7 (L) 32.0 - 36.0 g/dL RDW-CV 16.8 (H) <15.0 % RDW-SD 57.1 (H) 35.1 - 46.3 fL Platelet Count 271 140 - 440 K/uL MPV 9.4 6.5 - 12.4 fL % Neutrophils 59.8 45.0 - 82.0 % % Lymphocytes 25.6 20.0 - 45.0 % % Monocytes 12.3 (H) 4.0 - 12.0 % % Eosinophils 1.5 0.0 - 5.0 % % Basophils 0.6 0.0 - 1.0 % % Immature Granulocytes 0.2 0.0 - 0.4 % Absolute Neutrophils 3.69 1.80 - 8.50 K/uL Absolute Lymphocytes 1.58 0.60 - 3.20 K/uL Absolute Monocytes 0.76 0.00 - 1.00 K/uL Absolute Eosinophils 0.09 0.00 - 0.40 K/uL Absolute Basophils 0.04 0.00 - 0.10 K/uL Absolute Immature Granulocytes 0.01 0.00 - 0.03 K/uL % nRBC 0 0 - 2 per 100 WBCs Absolute nRBC 0.00 0.00 - 0.01 K/uL Basic Metabolic Panel Collection Time: 12/06/19 4:00 AM Result Value Ref Range Na 140 136 - 145 mmol/L K 4.6 3.4 - 5.1 mmol/L Cl 105 98 - 107 mmol/L CO2 29 20 - 31 mmol/L Anion Gap 6 3 - 16 mmol/L Glucose 99 60 - 106 mg/dL BUN 18 9 - 23 mg/dL Creatinine 1.56 (H) 0.70 - 1.30 mg/dL eGFR if not 43 (L) >=60 mL/min/1.73m2 Calcium 8.8 8.7 - 10.4 mg/dL BUN/Creatinine Ratio 11.5 Magnesium Collection Time: 12/06/19 4:00 AM Result Value Ref Range Magnesium 2.0 1.6 - 2.6 mg/dL TSH Collection Time: 12/06/19 4:00 AM Result Value Ref Range TSH 2.57 0.55 - 4.78 uIU/mL Protime INR Collection Time: 12/06/19 4:50 AM Result Value Ref Range Prothrombin Time 29.1 (H) 11.3 - 13.9 seconds INR 2.6 (H) 0.9 - 1.1 Micro results (more choices using dot micro) Microbiology Results (72 hrs) Procedure Component Value Units Date/Time Culture, MRSA [[id number]] Collected: 12/05/19 0059 Order Status: Sent Lab Status: In process Updated: 12/05/191906 Specimen: Tissue from Nares Radiology results (more choices using dot risresults) Xr Chest Ap Portable Result Date: 12/05/2019 XR CHEST AP PORTABLE 12/05/2019 1:55 PM HISTORY: TACHYCARDIA. COMPARISON: None. Findings: Hea rt size is within normal limits. Atherosclerosis and tortuosity are noted of the aorta. Medi astinum demonstrates no acute findings. Central pulmonary vasculature is normal. There is mi ld scarring in the left lung base. The right lung is clear. Mild spondylosis is noted. No acute findings. Dictated and Signed by: Marquise Rodriguez MD Electronically signed: 12/05/2019 2:21 PM Vitals Ranges: Temp: [36 C (96.8 F)-36.4 C (97.5 F)] 36 C (96.8 F) Pulse: [100-162] 133 Resp: [12-24] 21 BP: (93-171)/(54-150) 120/76 Vitals: Temp: 36 C (96.8 F) BP: 120/76 Pulse: 133 Resp: 21 SpO2: 95 % SpO2 95 % on room air at flow rate L/min Augusta Deluna MD 12/06/2019 8:52 AM [facility] Adrianna Perry Pha Ian - 12/05/2019 8:57 PM PDT WARFARIN PER PHARMACY PROTOCOL: Subjective/Objective: Griffin Lambert is a 74 y.o. male admitted on 12/05/2019 and is receiving warfarin. 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 Goal INR: 2-3 []Initiation [x]chronic Home regimen: 47.5 mg/week-> 5 mg on Tuesday/Tuesday and 7.5 mg on all other days per dwight siegel Managed by:Anticoagulation Clinic @ [facility] Sensitizers:age; acute CHF? Drug Interactions: none major at this time NON-valvular AFIB patients: [id number] score (max 9): 4 [x]CHF, [x]HTN, [x]Age > 75 (2), []DM, [] prior CVA,VTE (2), []SD,PAD, []Age 64-74, []Fema le Recent Labs Lab 12/05/19 1334 CREA 1.16 HGB 14.4 HCT 44.8 PLT 282 INR 2.8* Date Hgb Hct Platelets INR Warfarin Dose 12/04 44.8 14.4 282 2.8 5 mg Assessment: The INR is within the target range of 2-3 for atrial fibrillation Patient reports that he did NOT take his 12/04 warfarin dose Plan: 1. Warfarin 5mg po tonight 2. Medication profile reviewed for potential drug-drug interactions 3. Labs in am: Hgb, Hct, INR 4. 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 Pharmacist to follow daily Warfarin Dosing Nomogram Per P&T-approved Electronically signed by: Adrianna Reagan PharmD 12/05/2019 8:58 PM documented in this encounter H&P Notes Abdirahman Sinha MD - 12/05/2019 3:49 PM PDTFormatting of this note might be different fr om the original. [facility] History and physical Patient Name: Griffin Lambert Date of Admission: 12/05/2019 Referring Provider: Dr. Carvajal Source of Information: patient-Reliability fair. Chief Complaint: Referred from outpatient ultrasound for tachycardia/A. fib with RVR. HPI: 74-year-old male with a significant past medical history of atrial fibrillation with elevat ed chads 2 vasc score, essential hypertension, chronic heart failure with reduced ejection f raction and other comorbidities who presents to [facility] ER on 12/04 as a referra l from outpatient ultrasound for noted atrial fibrillation with rapid ventricular response, as assessed by wader boot top assembler at that time. As per discussion with the patient at bedside, he notes being in his usual state of health, until "a few days ago" when the patient began to experience malaise, weakness and lower ext remity edema. The patient did not think much of his symptoms. The patient was being evalua shon on 12/04 at [facility] ultrasound imaging Department when it was noted that the patient was tachycardic. The accredited pharmacy technician contacted wader boot top assembler (Dr. Sweeney) who recommended that the patient be transferred to [facility] ER for further eval uation and management. In the ER, patient was found to be tachycardic with a heart rate ranging from 128-162 bpm. Afebrile. Mild tachypnea and labile blood pressure. Laboratory results reviewed relativ scar unremarkable, except for BNP 605. Hospitalist was contacted for further inpatient care and management admission for atrial fibrillation with rapid ventricular response. Review of Systems Constitutional: Positive for malaise/fatigue. Negative for chills and fever. HENT: Negative for nosebleeds. Eyes: Negative for double vision. Respiratory: Negative for cough and shortness of breath. Cardiovascular: Positive for palpitations and leg swelling. Negative for chest pain and PND . Gastrointestinal: Negative for abdominal pain. Genitourinary: Negative for dysuria. Musculoskeletal: Positive for joint pain (chronic). Skin: Negative for rash. Neurological: Negative for focal weakness. Endo/Heme/Allergies: Negative for polydipsia. Psychiatric/Behavioral: Negative for hallucinations. PMH: Past Medical History: Diagnosis Date Atrial fibrillation (HCC) Chronic systolic congestive heart failure (HCC) Essential hypertension MCC (current) use of anticoagulants Prostate hypertrophy PSH: History reviewed. No pertinent surgical history. Medications: No current facility-administered medications on file prior to encounter. Current Outpatient Medications on File Prior to Encounter Medication Sig Dispense Refill CARTIA XT 240 [...] TABLETS BY MOUTH ONCE BRITTNEY LY ON Tue AND TUE TAKE 1 TABLET ONCE A DAY ON ALL OTHER DAYS 0 Allergies: No Known Allergies FH: family history includes Cancer in his father and mother. SH: reports that he quit smoking about 7 years ago. He has never used smokeless tobacco. He r eports previous alcohol use. He reports that he does not use drugs. Physical Exam: BP (!) 153/104 | Pulse 116 | Temp 36.4 C (97.5 F) | Resp 18 | Wt 81.6 kg (180 lb) | SpO2 97% | BMI 26.58 kg/m Physical Exam Constitutional: General: He is not in acute distress. HENT: Head: Normocephalic. Eyes: Pupils: Pupils are equal, round, and reactive to light. Neck: Comments: Positive JVD Cardiovascular: Rate and Rhythm: Tachycardia present. Rhythm irregular. Pulses: Normal pulses. Pulmonary: Breath sounds: Rales present. Abdominal: General: Bowel sounds are normal. Tenderness: There is no guarding or rebound. Musculoskeletal: General: Swelling present. Skin: General: Skin is warm. Neurological: Mental Status: He is alert and oriented to person, place, and time. Mental status is at baseline. Psychiatric: Mood and Affect: Mood normal. Labs: BMP 137 101 13 96 3.8 28 1.16 CaMgPhos 9.4 1.9 LFT 19 71 7.0 17 0.6 4.5 CBC 9.5 14.4 282 44.8 Coag Last labs from current encounter as of 12/05/19-15:49 Imaging: Imaging reviewed and will be addressed as indicated in the assessment and plan. ACTIVE COMORBIDITIES: Active comorbid conditions include: - dysrhythmias; atrial fibrillation; persistent - CHF; acute on chronic; systolic - hypertension; essential Problem List: Principal Problem: Atrial fibrillation with RVR Active Problems: Essential hypertension Acute on chronic systolic (congestive) heart failure Resolved Problems: * No resolved hospital problems. * Assessment and Plan: 1. Atrial fibrillation with rapid ventricular response: -We will target heart rate at rest during inpatient stay less than 110 bpm. -Initial troponin negative. Will order TSH, no prior on record. -Present heart rate ranging from 120-162 bpm. -Home regimen: Cardizem extended release 240 mg daily and Toprol-XL 200 mg daily -Last 2D echocardiogram (11/2018) demonstrates EF of 35-40% without mention of diastolic fun ction. Mild to moderate mitral regurgitation and mild tricuspid regurgitation. -Follow-up repeat 2D echocardiogram 12/04. -Given the patient's low ejection fraction and high risk for CHF exacerbation on Cardizem d rip, will discontinue and start esmolol drip. -If patient does not demonstrate rate control we will consider starting digoxin for rate control. -Restart Coumadin. Will consult pharmacy appreciate their input. Acute on chronic heart failure with reduced ejection fraction, likely: -Most likely secondary to point #1 -BNP 605 -Home regimen: Lasix 60 mg daily, lisinopril 2.5 mg daily, Toprol-XL 200 mg daily and potas sium 20 mEq daily. -We will start Lasix 40 mg IV twice daily -We will restart Toprol-XL at half dosing. -Strict I's and O's -Daily weights -Fluid and salt restriction -Follow-up 2D echocardiogram Essential hypertension: -Home regimen: Lisinopril 2.5 mg daily, Cardizem 240 mg daily and Toprol-XL 200 mg daily. -We will hold Cardizem as per point #1. Will restart Toprol-XL at 100 mg daily secondary t o point #2 and will restart lisinopril at home dose. DVT prophylaxis: In place No Order Abdirahman Sinha MD 12/05/2019 I believe the patient will require a minimum of 2 midnights for appropriate medical managem ent and safe discharge planning. Kindly, see daily progress notes for further details.Elect ronically signed by Abdirahman Sinha MD at 12/05/2019 3:54 PM PDTdocumented in this encount er ED Notes Андрей Carvajal MD - 12/05/2019 2:26 PM PDTFormatting of this note might be diff erent from the original. [facility] Emergency Department Encounter Note [address] [place] [id number] PCP:Josafat Steve [phone] CHIEF COMPLAINT: Chief Complaint Patient presents with Tachycardia ED Room: ED01 HPI Griffin Lambert is a 74 y.o. male who presents to the Emergency Department Patient presents a chief complaint of palpitations at home sudden onset approximately 2-3 h ours ago persistent reports similar episode a year ago. No associated pain or shortness of breath. Language line diplomatic interpreter/translator made available and used to collect historical details as needed. 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 Rare PVCs without significant sustained runs. No bradycardia was noted. No symptoms reported. History reviewed. No pertinent surgical history. 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 doxazosin (CARDURA XL) 4 MG 24 hr tablet Take 4 mg by mouth daily (with breakfast). furosemide (LASIX) 20 mg tablet Take 60 mg by mouth daily. lisinopril (PRINIVIL,ZESTRIL) 2.5 MG tablet (Patient taking differently: Take 2.5 mg b y mouth Daily.) metoprolol succinate (TOPROL-XL) 50 mg 24 hr tablet TAKE 4 TABLETS BY MOUTH ONCE DAILY potassium chloride (KLOR-CON M20) 20 mEq ER tablet Take 20 mEq by mouth daily. warfarin (COUMADIN) 5 mg tablet TAKE 1 & 1 2 (ONE & ONE HALF) TABLETS BY MOUTH ONCE BRITTNEY LY ON Tue AND TUE TAKE 1 TABLET ONCE A DAY ON ALL OTHER DAYS ALLERGIES No Known Allergies FAMILY AND SOCIAL HISTORY Family History Problem Relation Age of Onset Cancer Mother Cancer Father Social History Socioeconomic History Marital status: Spouse name: Not on file Number of children: Not on file Years of education: Not on file Highest education level: Not on file Tobacco Use Smoking status: Former Smoker Last attempt to quit: 07/09/2012 Years since quittin.4 Smokeless tobacco: Never Used Substance and Sexual Activity Alcohol use: Not Currently Drug use: Never REVIEW OF SYSTEMS As in history of present illness. A 10 system review was otherwise negative. PHYSICAL EXAM VITAL SIGNS: (first vital signs):Temp: 36.4 C (97.5 F) Pulse: 162 Resp: 16 SpO2: 96 % B P: (!) 144/91 Body mass index is 26.58 kg/m. Constitutional: Well-appearing male patient. HEENT: Atraumatic, PERRL, Oropharynx benign. Neck: Supple with full range of motion. Chest: No respiratory distress Cardiovascular: Regular rhythm. Abdomen: nondistended. Back: atraumatic. Extremities: Nontender. Skin: Warm, Dry, No rashes Neurologic: Alert & oriented. Psychiatric: Normal mood, affect and judgement. EKG 12-lead EKG shows a fib rvr LABS Results for orders placed or performed during the hospital encounter of 12/05/19 CBC with Differential Result Value Ref Range WBC 9.5 4.0 - 11.0 K/uL RBC 5.01 4.30 - 5.70 M/uL Hemoglobin 14.4 13.5 - 18.0 g/dL Hematocrit 44.8 40.0 - 51.0 % MCV 89.4 83.0 - 101.0 fL MCH 28.7 28.0 - 35.0 pg MCHC 32.1 32.0 - 36.0 g/dL RDW-CV 16.7 (H) <15.0 % RDW-SD 54.8 (H) 35.1 - 46.3 fL Platelet Count 282 140 - 440 K/uL MPV 9.3 6.5 - 12.4 fL % Neutrophils 75.6 45.0 - 82.0 % % Lymphocytes 14.4 (L) 20.0 - 45.0 % % Monocytes 8.6 4.0 - 12.0 % % Eosinophils 0.7 0.0 - 5.0 % % Basophils 0.4 0.0 - 1.0 % % Immature Granulocytes 0.3 0.0 - 0.4 % Absolute Neutrophils 7.14 1.80 - 8.50 K/uL Absolute Lymphocytes 1.36 0.60 - 3.20 K/uL Absolute Monocytes 0.81 0.00 - 1.00 K/uL Absolute Eosinophils 0.07 0.00 - 0.40 K/uL Absolute Basophils 0.04 0.00 - 0.10 K/uL Absolute Immature Granulocytes 0.03 0.00 - 0.03 K/uL % nRBC 0 0 - 2 per 100 WBCs Absolute nRBC 0.00 0.00 - 0.01 K/uL Comprehensive Metabolic Panel Result Value Ref Range Na 137 136 - 145 mmol/L K 3.8 3.4 - 5.1 mmol/L Cl 101 98 - 107 mmol/L CO2 28 20 - 31 mmol/L Anion Gap 8 3 - 16 mmol/L Glucose 96 60 - 106 mg/dL BUN 13 9 - 23 mg/dL Creatinine 1.16 0.70 - 1.30 mg/dL eGFR if not >60 >=60 mL/min/1.73m2 Calcium 9.4 8.7 - 10.4 mg/dL Albumin 4.5 3.2 - 4.8 g/dL Bilirubin Total 0.6 0.3 - 1.2 mg/dL Total Protein 7.0 5.7 - 8.2 g/dL AST 19 0 - 34 U/L ALT 17 10 - 49 U/L Alkaline Phosphatase 71 46 - 116 U/L Globulin 2.5 2.1 - 3.8 g/dL Albumin/Globulin Ratio 1.8 0.8 - 1.9 BUN/Creatinine Ratio 11.2 Troponin I Result Value Ref Range Troponin I 0.05 <0.06 ng/mL B Type Natriuretic Peptide Result Value Ref Range BNP 605 (H) <100 pg/mL Extra Green Top Tube Result Value Ref Range Extra Green Top Tube Done Extra Fine Top Tube Result Value Ref Range Extra Fine Top Tube Done Extra Blue Top Tube Result Value Ref Range Extra Blue Top Tube Done Extra Lavender Top Tube Result Value Ref Range Extra Lavender Top Tube Done Magnesium Result Value Ref Range Magnesium 1.9 1.6 - 2.6 mg/dL IMAGING STUDIES (X-Rays interpreted by ED Physician) The patients chest x ray was unremarkable for evidence of dissection, boerhaves syndrome, p neumonia, pneumothorax, or rib fracture. ED COURSE & MEDICAL DECISION MAKING Pertinent Labs & Imaging studies were reviewed along with EMS notes and long term record s if applicable. (See chart for details) Medications and Allergy list reviewed. Nurses note and old records were reviewed The patient was seen and examined, The patient was placed on the monitor and monitored. An iv was placed. The patient was given diltiazem for their symptoms. Screening labs are ordered elevated bnp without acute congestion. Responding well to initial therapy, admitted for further workup, treatment, and monitoring. Last Set of Vital Signs: Temp: 36.4 C (97.5 F) Pulse: 134 Resp: 19 SpO2: 95 % BP: 149/8 7 FINAL IMPRESSION ICD-10-CM ICD-9-CM 1. Atrial fibrillation with RVR (HCC) I48.91 427.31 Administrations This Visit dilTIAZem (CARDIZEM) 1 mg/mL in sodium chloride 0.9% 125 mL infusion Admin Date 12/05/2019 Action New Bag Dose 5 mg/hr Rate 5 mL/hr Route Intravenous Administered By Naheed Shankar RN Admin Date 12/05/2019 Action Rate/Dose Change Dose 10 mg/hr Rate 10 mL/hr Route Intravenous Administered By Alvaro Soto RN Admin Date 12/05/2019 Action Rate/Dose Change Dose 15 mg/hr Rate 15 mL/hr Route Intravenous Administered By Alvaro Soto RN dilTIAZem (CARDIZEM) injection 10 mg Admin Date 12/05/2019 Action Given Dose 10 mg Route Intravenous Administered By Alvaro Soto RN Portions of this chart were created with [employer] voice recognition software. Inadvertent so und alike substitutions may be present and are unintentional Андрей Carvajal MD 12/05/19 1434 [email or web address] RN - 12/05/2019 1:25 PM PDTPatient brought from ultrasound per Dr Sweeney for Afib RVR . Patient denies cough, fever, chest pain, dizziness. documented in this encounter Miscellaneous Notes Plan of Tyron - Lacho Barnard RN - 12/07/2019 11:00 AM PDTMr Lucero discharges to home and is without distress at th time of discharge. IV has been taken out and I have gone over discharge instructions with him. VSS lan of Tyron - Donna Holley - 12/07/2019 10:02 AM PDTDischarge Planning: This CM Asst. Followed up with patient about his discharge plan. He states he is ready to g o home and still plans on driving himself. He states no needs. Plan: transporting self home. No unmet needs. Electronically signed by: Donna Holley 12/07/2019 10:04 AM lan of Tiffany Jordan RN - 12/06/2019 6:30 PM PDTA&O X 4. VSS. HR 90's-120's. Continues to be in Afib. Lung sounds clear, room air. Skin intact. 3L diuresed off today. Non-skid footwear when OOB . Ambulates independently in room. 20 6:44 PM PDTPlan of Mei Laws Chaplain - 12/06/2019 1:12 PM PDT Spiritual Care Griffin Lambert is a 74 y.o. male who is admitted for Atrial fibrillation with RVR ([facility]) [I48.91]. Energy Project Manager visit was part of routine rounding. Spiritual Evaluation: The patient was resting in a bed in the ICU watching television when the main line assembler arrived. He was pleasant and receptive to a visit. This was an unexpected stay as he came to receiv e a routine test yesterday. The patient has had heart issues before. 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 Spiritual Interventions: The main line assembler attended, offered care, and witnessed patient's story. Spiritual Outcomes: The patient is coping with an unexpected situation and is eager to return home. Spiritual Goals/Follow-up: Follow up as needed. lan Donna Walker - 12/05/2019 2:04 PM PDTDischarge Planning: This CM Asst. Spoke with Griffin at his bedside. He states he drove himself here today. He sta jayla he has 3 steps to enter into his. He states he has a walk in and a tub/shower with grab bars nearby. He states he lives with his . He states he is independent. DME: none [facility]acy: [facility] [place] Transport: he states he plans to drive himself. Plan: home when medically stable, patient transporting self. No unmet needs. Electronically signed by: Donna Holely 12/05/2019 2:08 PM documented in this enco unter Plan of Treatment +--------+ + + + + | Date | Type | Specialty | Care Team | Description | +--------+ + + + + | 04/02/ | Appointment | Radiology | Noreen Rosario | | 2019 | | | TOBIN Daniel [address] | | | | | | [address] [place] | | | | | | [place] [address] | | | | | | [phone] | | | | | | | | +--------+ + + + + | 04/08/ | Office | Cardiology | Del Sweeney | | 2019 | Visit | | MD Anam Puentes W | | | | | | [address] [place] | | | | | | [place] [address] | | | | | | [phone] | | | | | | | | +--------+ + + + + + +------+--------+ + + | Name | Type | Priori | Associated Diagnoses | Date/Time | | | | ty | | | + +------+--------+ + + | ED INFORMATION | EDIN | Routin | | 12/05/2019 1:23 PM | | EXCHANGE | | e | | PDT | + +------+--------+ + + documented as of this encounter Procedures + +--------+ + + + | Procedure Name | Priori | Date/Time | Associated Diagnosis | Comments | | | ty | | | | + +--------+ + + + | PROTIME INR | Routin | 12/07/2019 | | Results for this | | | e | 3:15 AM | | procedure are in the | | | | PDT | | results section. | + +--------+ + + + | CBC NO DIFFERENTIAL | Routin | 12/07/2019 | | Results for this | | | e | 3:15 AM | | procedure are in the | | | | PDT | | results section. | + +--------+ + + + | MAGNESIUM | Routin | 12/07/2019 | | Results for this | | | e | 3:15 AM | | procedure are in the | | | | PDT | | results section. | + +--------+ + + + | BASIC METABOLIC | Routin | 12/07/2019 | | Results for this | | PANEL | e | 3:15 AM | | procedure are in the | | | | PDT | | results section. | + +--------+ + + + | PROTIME INR | Routin | 12/06/2019 | | Results for this | | | e | 4:50 AM | | procedure are in the | | | | PDT | | results section. | + +--------+ + + + | TSH | Add-On | 12/06/2019 | | Results for this | | | | 4:00 AM | | procedure are in the | | | | PDT | | results section. | + +--------+ + + + | MAGNESIUM | Routin | 12/06/2019 | | Results for this | | | e | 4:00 AM | | procedure are in the | | | | PDT | | results section. | + +--------+ + + + | BASIC METABOLIC | Routin | 12/06/2019 | | Results for this | | PANEL | e | 4:00 AM | | procedure are in the | | | | PDT | | results section. | + +--------+ + + + | CBC WITH | Routin | 12/06/2019 | | Results for this | | DIFFERENTIAL | e | 3:59 AM | | procedure are in the | | | | PDT | | results section. | + +--------+ + + + | CULTURE, MRSA | Routin | 12/05/2019 | | Results for this | | | e | 6:23 PM | | procedure are in the | | | | PDT | | results section. | + +--------+ + + + | XR CHEST AP PORTABLE | STAT | 12/05/2019 | | Results for this | | | | 1:55 PM | | procedure are in the | | | | PDT | | results section. | + +--------+ + + + | EXTRA FINE TOP TUBE | Routin | 12/05/2019 | | Results for this | | | e | 1:34 PM | | procedure are in the | | | | PDT | | results section. | + +--------+ + + + | EXTRA LAVENDER TOP | Routin | 12/05/2019 | | Results for this | | TUBE | e | 1:34 PM | | procedure are in the | | | | PDT | | results section. | + +--------+ + + + | EXTRA GREEN TOP TUBE | Routin | 12/05/2019 | | Results for this | | | e | 1:34 PM | | procedure are in the | | | | PDT | | results section. | + +--------+ + + + | EXTRA BLUE TOP TUBE | Routin | 12/05/2019 | | Results for this | | | e | 1:34 PM | | procedure are in the | | | | PDT | | results section. | + +--------+ + + + | TROPONIN I | STAT | 12/05/2019 | | Results for this | | | | 1:34 PM | | procedure are in the | | | | PDT | | results section. | + +--------+ + + + | PROTIME INR | Add-On | 12/05/2019 | | Results for this | | | | 1:34 PM | | procedure are in the | | | | PDT | | results section. | + +--------+ + + + | CBC WITH | STAT | 12/05/2019 | | Results for this | | DIFFERENTIAL | | 1:34 PM | | procedure are in the | | | | PDT | | results section. | + +--------+ + + + | B TYPE NATRIURETIC | STAT | 12/05/2019 | | Results for this | | PEPTIDE | | 1:34 PM | | procedure are in the | | | | PDT | | results section. | + +--------+ + + + | MAGNESIUM | STAT | 12/05/2019 | | Results for this | | | | 1:34 PM | | procedure are in the | | | | PDT | | results section. | + +--------+ + + + | COMPREHENSIVE | STAT | 12/05/2019 | | Results for this | | METABOLIC PANEL | | 1:34 PM | | procedure are in the | | | | PDT | | results section. | + +--------+ + + + | ECG 12 LEAD | Routin | 12/05/2019 | | Results for this | | | e | 1:30 PM | | procedure are in the | | | | PDT | | results section. | + +--------+ + + + | ED INFORMATION | Routin | 12/05/2019 | | | | EXCHANGE | e | 1:23 PM | | | | | | PDT | | | + +--------+ + + + +---+--------+ | | | | | Proced | | | ure | | | Note - | | | Gerry, | | | Lab In | | | | | | Hlseve | | | n - | | | | | | 2019 | | | 1:24 | | | PM PDT | | | | | | Format | | | ting | | | of | | | this | | | note | | | might | | | be | | | differ | | | ent | | | from | | | the | | | origin | | | al.COL | | | LECTIV | | | E?NOTI | | | FICATI | | | ON?04/ | | | | | | 0 | | | 13:22? | | | MCDANI | | | EL, | | | GRIFFIN | | | D?MRN: | | | | | | [id number] | | | [id number] | | | riteri | | | a Met | | | Care | | | Guidel | | | inesSe | | | curity | | | and | | | Safety | | | No | | | recent | | | | | | Securi | | | ty | | | Events | | | | | | curren | | | tly on | | | | | | fileED | | | Care | | | Guidel | | | inesTh | | | ere | | | are | | | curren | | | tly no | | | ED | | | Care | | | Guidel | | | john | | | for | | | this | | | patien | | | t. | | | Please | | | check | | | your | | | facili | | | ty's | | | medica | | | l | | | record | | | s | | | system | | | .Care | | | Histor | | | yMedic | | | al/Rodri | | | [email or web address] | | | /2/19 | | | 12:00 | | | AM | | | [facility] | | | al | | | Patien | | | t is | | | curren | | | tly | | | establ | | | ished | | | with | | | St | | | [facility] | | | Clinic | | | . If | | | patien | | | t is | | | seen | | | in the | | | ED | | | during | | | | | | busine | | | ss | | | hours. | | | | | | Please | | | | | | contac | | | t [facility] | at [facility] | | | | | | [facility] | | y | | | Clinic | | | .Care | | | Recomm | | | endati | | | on:Thi | | | s | | | patien | | | t has | | | had 5 | | | or | | | more | | | Emerge | | | ncy | | | Depart | | | ment | | | visits | | | in | | | the | | | last | | | 12 | | | months | | | .? | | | Patien | | | t | | | requir | | | es | | | educat | | | ion on | | | the | | | scope | | | and | | | purpos | | | e of | | | the ED | | | as an | | | acute | | | care | | | provid | | | er not | | | a | | | Primar | | | y Care | | | | | | Provid | | | er and | | | | | | should | | | not | | | be | | | utiliz | | | ed for | | | | | | chroni | | | c | | | condit | | | ions.? | | | These | | | are | | | guidel | | | john | | | and | | | the | | | provid | | | er | | | should | | | | | | exerci | | | se | | | clinic | | | al | | | judgme | | | nt | | | when | | | provid | | | ing | | | care.P | | | rescri | | | ption | | | Drug | | | Report | | | (12 | | | Mo.)PD | | | MP | | | query | | | found | | | no | | | report | | | .E.D. | | | Visit | | | Count | | | (12 | | | mo.)Fa | | | cility | | | | | | Visits | | | Low | | | Acuity | | | | | | Provid | | | ence | | | St. | | | [facility] | | | Medica | | | l | | | Center | | | 1 0 | | | [facility] | [facility] | | | al 1 0 | | | Total | | | 2 0 | | | Note: | | | Visits | | | | | | indica | | | te | | | total | | | known | | | visits | | | . | | | Medica | | | id Low | | | | | | Acuity | | | Dx | | | are | | | the | | | number | | | of | | | primar | | | y | | | diagno | | | ses on | | | the | | | Medica | | | id's | | | Low | | | Acuity | | | dx | | | list. | | | | | | Recent | | | | | | Emerge | | | ncy | | | Depart | | | ment | | | Visit | | | [facility] | | | yDate | | | Facili | | | ty | | | City | | | State | | | Type | | | Diagno | | | ses or | | | Chief | | | | | | Compla | | | int | | | Apr 8, | | | 2020 | | | Provid | | | ence | | | [facility] | | [facility] | [place] | | | [place] | | | Emerge | | | ncy | | | Kash | | | 14, | | | 2019 | | | [facility] | [facility] | [place] | | | [place] | | | Emerge | | | ncy | | | Chief | | | Compla | | | int: | | | DIFFIC | | | ULTY | | | BREATH | | | ING | | | Recent | | | | | | Inpati | | | ent | | | Visit | | | [facility] | | | yDate | | | Facili | | | ty | | | City | | | State | | | Type | | | Diagno | | | ses or | | | Chief | | | | | | Compla | | | int | | | Kash | | | 14, | | | 2019 | | | [facility] | [facility] [place] | | | Medica | | | l | | | Surgic | | | al | | | Unspec | | | ified | | | atrial | | | | | | fibril | | | lation | | | | | | Hypert | | | ensive | | | heart | | | | | | diseas | | | e with | | | heart | | | | | | failur | | | e | | | Acute | | | on | | | chroni | | | c | | | systol | | | ic | | | (conge | | | stive) | | | heart | | | | | | failur | | | e | | | Other | | | chroni | | | c pain | | | | | | Person | | | al | | | histor | | | y of | | | nicoti | | | ne | | | depend | | | ence | | | | | | Patien | | | t's | | | other | | | noncom | | | plianc | | | e with | | | | | | medica | | | tion | | | regime | | | n | | | Other | | | long | | | term | | | (curre | | | nt) | | | drug | | | therap | | | y | | | Long | | | term | | | (curre | | | nt) | | | use of | | | | | | antico | | | agulan | | | ts | | | Patien | | | t's | | | noncom | | | plianc | | | e with | | | | | | dietar | | | y | | | regime | | | n | | | Care | | | TeamPr | | | ovider | | | | | | Specia | | | lty | | | Phone | | | Fax | | | Servic | | | e | | | Dates | | | KARGAR | | | , | | | ULISSES, | | | DO | | | Ct Scan Technician | | | al | | | Medici | | | ne | | | [phone] | | | [phone] | | | 35 | | | [phone] | | | [phone] | | | 74 Apr | | | 2, | | | 2019 - | | | | | | Curren | | | t | | | Collec | | | tive | | | Portal | | | This | | | patien | | | t has | | | regist | | | ered | | | at the | | | | | | Provid | | | ence | | | St[facility] | | | [facility] | | Medica | | | l | | | Center | | | | | | Emerge | | | ncy | | | Depart | | | ment | | | For | | | more | | | inform | | | ation | | | visit: | | | | | | https: | | | //prov | | | .colle | | | ctivem | | | edical | | | .com/n | | | otify/ | | | [id number] | | | [id number] | | | [phone] | | | [phone] | | | [id number] | | | [id number] | | | | | | PLEASE | | | NOTE: | | | 1. | | | Any | | | care | | | recomm | | | endati | | | ons | | | and | | | other | | | clinic | | | al | | | inform | | | ation | | | are | | | provid | | | ed as | | | guidel | | | john | | | or for | | | | | | histor | | | ical | | | purpos | | | es | | | only, | | | and | | | provid | | | ers | | | should | | | | | | exerci | | | se | | | their | | | own | | | clinic | | | al | | | judgme | | | nt | | | when | | | provid | | | ing | | | care. | | | 2. | | | You | | | may | | | only | | | use | | | this | | | inform | | | ation | | | for | | | purpos | | | es of | | | treatm | | | ent, | | | paymen | | | t or | | | health | | | care | | | operat | | | ions | | | activi | | | ties, | | | and | | | subjec | | | t to | | | the | | | limita | | | tions | | | of | | | applic | | | able | | | Collec | | | tive | | | Polici | | | es. | | | 3. | | | You | | | should | | | | | | consul | | | t | | | direct | | | ly | | | with | | | the | | | organi | | | zation | | | that | | | provid | | | ed a | | | care | | | guidel | | | ine or | | | other | | | | | | clinic | | | al | | | histor | | | y with | | | any | | | questi | | | ons | | | about | | | additi | | | onal | | | inform | | | ation | | | or | | | accura | | | cy or | | | comple | | | teness | | | of | | | inform | | | ation | | | provid | | | ed.? | | | 2020 | | | Collec | | | tive | | | Medica | | | l | | | [employer] | | | logies | | | , Inc[employer] | | | - | | | [email or web address] | | | llecti | | | vemedi | | | [email or web address] | | | m | +---+--------+ documented in this encounter Results Protime INR (12/07/2019 3:15 AM PDT) + + + + + + | Component | Value | Ref Range | Performed | Pathologist | | | | | At | Signature | + + + + + + | Prothrombin | 30.8 (H) | 11.3 - 13.9 | [facility] | | | Time | | seconds | [facility] | | [facility] | | [facility] | | | | | | [facility] - | | | | | | LABORATORY | | + + + + + + | INR | 2.8 (H)Comment: Usual | 0.9 - 1.1 | [facility] | | | | Oral Anticoagulation | | [facility] | | | | Range: 2.0 - | | MEDICAL | | | | 3.0High Level Oral | | CENTER - | | | | Anticoagulation Range: | | LABORATORY | | | | 2.5 - 3.5 | | | | + + + + + + + + | Specimen | + + | Blood | + + + + + + + | Performing | Address | City/State/Zipcode | Phone Number | | Organization | | | | + + + + + | [facility] | [address] | [place] | [phone] | | [facility] | | [address] | | | - LABORATORY | | | | + + + + + Magnesium (12/07/2019 3:15 AM PDT) + +-------+ + + + | Component | Value | Ref Range | Performed | Pathologist | | | | | At | Signature | + +-------+ + + + | Magnesium | 1.9 | 1.6 - 2.6 mg/dL | [facility] | | | | | | [facility] | | [facility] | [facility] | | | | | | [facility] - | | | | | | LABORATORY | | + +-------+ + + + + + | Specimen | + + | Blood | + + + + + + + | Performing | Address | City/State/Zipcode | Phone Number | | Organization | | | | + + + + + | [facility] | [address] | [place] | [phone] | | [facility] | | [address] | | | - LABORATORY | | | | + + + + + Basic Metabolic Panel (12/07/2019 3:15 AM PDT) + + + + + + | Component | Value | Ref Range | Performed | Pathologist | | | | | At | Signature | + + + + + + | Na | 138 | 136 - 145 | [facility] | | | | | mmol/L | [facility] | | | | | | [facility] | | | | | | CENTER - | | | | | | LABORATORY | | + + + + + + | K | 3.7 | 3.4 - 5.1 | [facility] | | | | | mmol/L | [facility] | | | | | | [facility] | | | | | | CENTER - | | | | | | LABORATORY | | + + + + + + | Cl | 100 | 98 - 107 mmol/L | [facility] | | | | | | [facility] | | | | | | [facility] | | | | | | CENTER - | | | | | | LABORATORY | | + + + + + + | CO2 | 32 (H) | 20 - 31 mmol/L | [facility] | | | | | | [facility] | | | | | | [facility] | | | | | | CENTER - | | | | | | LABORATORY | | + + + + + + | Anion Gap | 6 | 3 - 16 mmol/L | [facility] | | | | | | [facility] | | | | | | [facility] | | | | | | CENTER - | | | | | | LABORATORY | | + + + + + + | Glucose | 113 (H) | 60 - 106 mg/dL | [facility] | | | | | | [facility] | | | | | | [facility] | | | | | | CENTER - | | | | | | LABORATORY | | + + + + + + | BUN | 23 | 9 - 23 mg/dL | [facility] | | | | | | [facility] | | | | | | [facility] | | | | | | CENTER - | | | | | | LABORATORY | | + + + + + + | Creatinine | 1.28 | 0.70 - 1.30 | [facility] | | | | | mg/dL | [facility] | | | | | | MEDICAL | | | | | | CENTER - | | | | | | LABORATORY | | + + + + + + | eGFR if not | 55 (L)Comment: | >=60 | [facility] | | | | GLOMERULAR FILTRATION | mL/min/1.73m2 | [facility] | | | [place] | RATE,ESTIMATED | | MEDICAL | | | | mL/min/1.00t5Zkaw than | | CENTER - | | | | 60 Chronic kidney | | LABORATORY | | | | disease,if found over a | | | | | | 3-month period.Less than | | | | | | 15 Kidney failureFor | | | | | | | | | | | | Americans,multiply the | | | | | | calculated GFR by 1.21. | | | | | | | | | | + + + + + + | Calcium | 8.9 | 8.7 - 10.4 | [facility] | | | | | mg/dL | [facility] | | | | | | [facility]ICAL | | | | | | CENTER - | | | | | | LABORATORY | | + + + + + + | BUN/Creatin | 18.0 | | [facility] | | | ine Ratio | | | [facility] | | | | | | [facility] | | | | | | CENTER - | | | | | | LABORATORY | | + + + + + + + + | Specimen | + + | Blood | + + + + + + + | Performing | Address | City/State/Zipcode | Phone Number | | Organization | | | | + + + + + | [facility] | [address] | [place] | [phone] | | [facility] | | [address] | | | - LABORATORY | | | | + + + + + CBC no Differential (12/07/2019 3:15 AM PDT) + + + + + + | Component | Value | Ref Range | Performed | Pathologist | | | | | At | Signature | + + + + + + | White Blood | 7.3 | 4.0 - 11.0 K/uL | [facility] | | | Cells | | | [facility] | | | | | | MEDICAL | | | | | | CENTER - | | | | | | LABORATORY | | + + + + + + | Red Blood | 4.81 | 4.30 - 5.70 | [facility] | | | Cells | | M/uL | [facility] | | | | | | [facility]ICAL | | | | | | CENTER - | | | | | | LABORATORY | | + + + + + + | Hemoglobin | 13.5 | 13.5 - 18.0 | [facility] | | | | | g/dL | [facility] | | | | | | MEDICAL | | | | | | CENTER - | | | | | | LABORATORY | | + + + + + + | Hematocrit | 43.7 | 40.0 - 51.0 % | [facility] | | | | | | [facility] | | | | | | [facility]ICAL | | | | | | CENTER - | | | | | | LABORATORY | | + + + + + + | MCV | 90.9 | 83.0 - 101.0 fL | [facility] | | | | | | [facility] | | | | | | [facility] | | | | | | CENTER - | | | | | | LABORATORY | | + + + + + + | MCH | 28.1 | 28.0 - 35.0 pg | [facility] | | | | | | [facility] | | | | | | [facility]ICAL | | | | | | CENTER - | | | | | | LABORATORY | | + + + + + + | MCHC | 30.9 (L) | 32.0 - 36.0 | [facility] | | | | | g/dL | [facility] | | | | | | MEDICAL | | | | | | CENTER - | | | | | | LABORATORY | | + + + + + + | RDW-CV | 16.6 (H) | <15.0 % | [facility] | | | | | | [facility] | | | [facility] | | [facility] | | | | | | CENTER - | | | | | | LABORATORY | | + + + + + + | RDW-SD | 55.8 (H) | 35.1 - 46.3 fL | [facility] | | | | | | [facility] | | | | | | [facility]ICAL | | | | | | CENTER - | | | | | | LABORATORY | | + + + + + + | Platelet | 275 | 140 - 440 K/uL | [facility] | | | Count | | | [facility] | | | | | | [facility] | | | | | | CENTER - | | | | | | LABORATORY | | + + + + + + | MPV | 9.3 | 6.5 - 12.4 fL | [facility] | | | | | | [facility] | | | | | | [facility]ICAL | | | | | | CENTER - | | | | | | LABORATORY | | + + + + + + | % nRBC | 0 | 0 - 2 per 100 | [facility] | | | | | WBCs | [facility] | | | | | | [facility]ICAL | | | | | | CENTER - | | | | | | LABORATORY | | + + + + + + | Absolute | 0.00 | 0.00 - 0.01 | [facility] | | | nRBC | | K/uL | [facility] | | | | | | [facility] | | | | | | CENTER - | | | | | | LABORATORY | | + + + + + + + + | Specimen | + + | Blood | + + + + + + + | Performing | Address | City/State/Zipcode | Phone Number | | Organization | | | | + + + + + | [facility] | [address] | [place] | [phone] | | [facility] | | [address] | | | - LABORATORY | | | | + + + + + Protime INR (12/06/2019 4:50 AM PDT) + + + + + + | Component | Value | Ref Range | Performed | Pathologist | | | | | At | Signature | + + + + + + | Prothrombin | 29.1 (H) | 11.3 - 13.9 | [facility] | | | Time | | seconds | [facility] | | | | | | MEDICAL | | | | | | CENTER - | | | | | | LABORATORY | | + + + + + + | INR | 2.6 (H)Comment: Usual | 0.9 - 1.1 | [facility] | | | | Oral Anticoagulation | | [facility] | | | | Range: 2.0 - | | MEDICAL | | | | 3.0High Level Oral | | CENTER - | | | | Anticoagulation Range: | | LABORATORY | | | | 2.5 - 3.5 | | | | + + + + + + + + | Specimen | + + | Blood | + + + + + + + | Performing | Address | City/State/Zipcode | Phone Number | | Organization | | | | + + + + + | [facility] | [address] | [place] | [phone] | | [facility] | | [address] | | | - LABORATORY | | | | + + + + + TSH (12/06/2019 4:00 AM PDT) + +-------+ + + + | Component | Value | Ref Range | Performed | Pathologist | | | | | At | Signature | + +-------+ + + + | TSH | 2.57 | 0.55 - 4.78 | [facility] | | | | | uIU/mL | [facility] | | | | | | MEDICAL | | | | | | CENTER - | | | | | | LABORATORY | | + +-------+ + + + + + | Specimen | + + | Blood | + + + + + + + | Performing | Address | City/State/Zipcode | Phone Number | | Organization | | | | + + + + + | [facility] | [address] | [place] | [phone] | | [facility] | | [address] | | | - LABORATORY | | | | + + + + + Magnesium (12/06/2019 4:00 AM PDT) + +-------+ + + + | Component | Value | Ref Range | Performed | Pathologist | | | | | At | Signature | + +-------+ + + + | Magnesium | 2.0 | 1.6 - 2.6 mg/dL | [facility] | | | | | | [facility] | | | | | | [facility]ICAL | | | | | | CENTER - | | | | | | LABORATORY | | + +-------+ + + + + + | Specimen | + + | Blood | + + + + + + + | Performing | Address | City/State/Zipcode | Phone Number | | Organization | | | | + + + + + | [facility] | [address] | [place] | [phone] | | [facility] | | [address] | | | - LABORATORY | | | | + + + + + Basic Metabolic Panel (12/06/2019 4:00 AM PDT) + + + + + + | Component | Value | Ref Range | Performed | Pathologist | | | | | At | Signature | + + + + + + | Na | 140 | 136 - 145 | [facility] | | | | | mmol/L | [facility] | | | | | | MEDICAL | | | | | | CENTER - | | | | | | LABORATORY | | + + + + + + | K | 4.6 | 3.4 - 5.1 | [facility] | | | | | mmol/L | [facility] | | | | | | MEDICAL | | | | | | CENTER - | | | | | | LABORATORY | | + + + + + + | Cl | 105 | 98 - 107 mmol/L | [facility] | | | | | | [facility] | | | [facility] | | [facility]ICAL | | | | | | CENTER - | | | | | | LABORATORY | | + + + + + + | CO2 | 29 | 20 - 31 mmol/L | [facility] | | | | | | [facility] | | | | | | [facility]ICAL | | | | | | CENTER - | | | | | | LABORATORY | | + + + + + + | Anion Gap | 6 | 3 - 16 mmol/L | [facility] | | | | | | [facility] | | | | | | MEDICAL | | | | | | CENTER - | | | | | | LABORATORY | | + + + + + + | Glucose | 99 | 60 - 106 mg/dL | [facility] | | | | | | [facility] | | | | | | [facility]ICAL | | | | | | CENTER - | | | | | | LABORATORY | | + + + + + + | BUN | 18 | 9 - 23 mg/dL | [facility] | | | | | | [facility] | | | | | | MEDICAL | | | | | | CENTER - | | | | | | LABORATORY | | + + + + + + | Creatinine | 1.56 (H) | 0.70 - 1.30 | [facility] | | | | | mg/dL | [facility] | | | | | | MEDICAL | | | | | | CENTER - | | | | | | LABORATORY | | + + + + + + | eGFR if not | 43 (L)Comment: | >=60 | [facility] | | | | GLOMERULAR FILTRATION | mL/min/1.73m2 | [facility] | | | [place] | RATE,ESTIMATED | | MEDICAL | | | | mL/min/1.97r5Npmq than | | CENTER - | | | | 60 Chronic kidney | | LABORATORY | | | | disease,if found over a | | | | | | 3-month period.Less than | | | | | | 15 Kidney failureFor | | | | | | | | | | | | Americans,multiply the | | | | | | calculated GFR by 1.21. | | | | | | | | | | + + + + + + | Calcium | 8.8 | 8.7 - 10.4 | [facility] | | | | | mg/dL | [facility] | | | | | | MEDICAL | | | | | | CENTER - | | | | | | LABORATORY | | + + + + + + | BUN/Creatin | 11.5 | | [facility] | | | ine Ratio | | | [facility] | | | | | | MEDICAL | | | | | | CENTER - | | | | | | LABORATORY | | + + + + + + + + | Specimen | + + | Blood | + + + + + + + | Performing | Address | City/State/Zipcode | Phone Number | | Organization | | | | + + + + + | [facility] | [address] | [place], [place] | [phone] | | [facility] | | [address] | | | - LABORATORY | | | | + + + + + CBC with Differential (12/06/2019 3:59 AM PDT) + + + + + + | Component | Value | Ref Range | Performed | Pathologist | | | | | At | Signature | + + + + + + | White Blood | 6.2 | 4.0 - 11.0 K/uL | [facility] | | | Cells | | | [facility] | | | | | | MEDICAL | | | | | | CENTER - | | | | | | LABORATORY | | + + + + + + | Red Blood | 4.39 | 4.30 - 5.70 | [facility] | | | Cells | | M/uL | [facility] | | | | | | MEDICAL | | | | | | CENTER - | | | | | | LABORATORY | | + + + + + + | Hemoglobin | 12.4 (L) | 13.5 - 18.0 | [facility] | | | | | g/dL | [facility] | | | | | | MEDICAL | | | | | | CENTER - | | | | | | LABORATORY | | + + + + + + | Hematocrit | 40.4 | 40.0 - 51.0 % | [facility] | | | | | | [facility] | | | | | | [facility]ICAL | | | | | | CENTER - | | | | | | LABORATORY | | + + + + + + | MCV | 92.0 | 83.0 - 101.0 fL | [facility] | | | | | | [facility] | | | | | | [facility]ICAL | | | | | | CENTER - | | | | | | LABORATORY | | + + + + + + | MCH | 28.2 | 28.0 - 35.0 pg | [facility] | | | | | | [facility] | | | | | | MEDICAL | | | | | | CENTER - | | | | | | LABORATORY | | + + + + + + | MCHC | 30.7 (L) | 32.0 - 36.0 | [facility] | | | | | g/dL | [facility] | | | | | | MEDICAL | | | | | | CENTER - | | | | | | LABORATORY | | + + + + + + | RDW-CV | 16.8 (H) | <15.0 % | [facility] | | | | | | [facility] | | | | | | MEDICAL | | | | | | CENTER - | | | | | | LABORATORY | | + + + + + + | RDW-SD | 57.1 (H) | 35.1 - 46.3 fL | [facility] | | | | | | [facility] | | | | | | [facility]ICAL | | | | | | CENTER - | | | | | | LABORATORY | | + + + + + + | Platelet | 271 | 140 - 440 K/uL | [facility] | | | Count | | | [facility] | | | | | | MEDICAL | | | | | | CENTER - | | | | | | LABORATORY | | + + + + + + | MPV | 9.4 | 6.5 - 12.4 fL | [facility] | | | | | | [facility] | | | | | | [facility]ICAL | | | | | | CENTER - | | | | | | LABORATORY | | + + + + + + | % | 59.8 | 45.0 - 82.0 % | [facility] | | | Neutrophils | | | [facility] | | | | | | MEDICAL | | | | | | CENTER - | | | | | | LABORATORY | | + + + + + + | % | 25.6 | 20.0 - 45.0 % | [facility] | | | Lymphocytes | | | [facility] | | | | | | [facility] | | | | | | CENTER - | | | | | | LABORATORY | | + + + + + + | % Monocytes | 12.3 (H) | 4.0 - 12.0 % | [facility] | | | | | | [facility] | | | | | | MEDICAL | | | | | | CENTER - | | | | | | LABORATORY | | + + + + + + | % | 1.5 | 0.0 - 5.0 % | [facility] | | | Eosinophils | | | [facility] | | | | | | MEDICAL | | | | | | CENTER - | | | | | | LABORATORY | | + + + + + + | % Basophils | 0.6 | 0.0 - 1.0 % | [facility] | | | | | | [facility] | | | | | | MEDICAL | | | | | | CENTER - | | | | | | LABORATORY | | + + + + + + | % Immature | 0.2 | 0.0 - 0.4 % | [facility] | | | Granulocyte | | | [facility] | | | s | | | MEDICAL | | | | | | CENTER - | | | | | | LABORATORY | | + + + + + + | Absolute | 3.69 | 1.80 - 8.50 | [facility] | | | Neutrophils | | K/uL | [facility] | | | | | | MEDICAL | | | | | | CENTER - | | | | | | LABORATORY | | + + + + + + | Absolute | 1.58 | 0.60 - 3.20 | [facility] | | | Lymphocytes | | K/uL | [facility] | | | | | | MEDICAL | | | | | | CENTER - | | | | | | LABORATORY | | + + + + + + | Absolute | 0.76 | 0.00 - 1.00 | [facility] | | | Monocytes | | K/uL | [facility] | | | | | | MEDICAL | | | | | | CENTER - | | | | | | LABORATORY | | + + + + + + | Absolute | 0.09 | 0.00 - 0.40 | [facility] | | | Eosinophils | | K/uL | [facility] | | | | | | MEDICAL | | | | | | CENTER - | | | | | | LABORATORY | | + + + + + + | Absolute | 0.04 | 0.00 - 0.10 | [facility] | | | Basophils | | K/uL | [facility] | | | | | | MEDICAL | | | | | | CENTER - | | | | | | LABORATORY | | + + + + + + | Absolute | 0.01 | 0.00 - 0.03 | [facility] | | | Immature | | K/uL | [facility] | | | Granulocyte | | | MEDICAL | | | s | | | CENTER - | | | | | | LABORATORY | | + + + + + + | % nRBC | 0 | 0 - 2 per 100 | [facility] | | | | | WBCs | [facility] | | | | | | MEDICAL | | | | | | CENTER - | | | | | | LABORATORY | | + + + + + + | Absolute | 0.00 | 0.00 - 0.01 | [facility] | | | nRBC | | K/uL | [facility] | | | | | | MEDICAL | | | | | | CENTER - | | | | | | LABORATORY | | + + + + + + + + | Specimen | + + | Blood | + + + + + + + | Performing | Address | City/State/Zipcode | Phone Number | | Organization | | | | + + + + + | [facility] | [address] | [place] | [phone] | | [facility] | | [address] | | | - LABORATORY | | | | + + + + + Culture, MRSA (12/05/2019 6:23 PM PDT) + + + + + + | Component | Value | Ref Range | Performed | Pathologist | | | | | At | Signature | + + + + + + | Culture | Negative for MRSA by | | [facility] | | | | chromogenic agar method. | | [facility] | | | | | | [facility] | | | | | | CENTER - | | | | | | LABORATORY | | + + + + + + | Culture | 4+ Coagulase positive | | [facility] | | | | Staphylococcus | | [facility] | | | | | | MEDICAL | | | | | | CENTER - | | | | | | LABORATORY | | + + + + + + + + | Specimen | + + | Tissue - Both | | anterior nares (body | | structure) | + + + + + + + | Performing | Address | City/State/Zipcode | Phone Number | | Organization | | | | + + + + + | [facility] | [address] | [place] | [phone] | | [facility] | | [address] | | | - LABORATORY | | | | + + + + + XR Chest AP Portable (12/05/2019 1:55 PM PDT) + + | Specimen | + + | | + + + + + | Impressions | Performed At | + + + | No acute findings. Dictated and Signed by: Marquise Rodriguez MD | [facility] | | Electronically signed: 12/05/2019 2:21 PM | | + + + + + + | Narrative | Performed At | + + + | XR CHEST AP PORTABLE 12/05/2019 1:55 PM HISTORY: TACHYCARDIA. | [facility] | | COMPARISON: None. Findings: Heart size is within normal limits. | | | Atherosclerosis and tortuosity are noted of the aorta. Mediastinum | | | demonstrates no acute findings. Central pulmonary vasculature is | | | normal. There is mild scarring in the left lung base. The right lung | | | is clear. Mild spondylosis is noted. | | + + + + + | Procedure Note | + + | Gerry, Rad Results In - 12/05/2019 2:25 PM PDT XR CHEST AP PORTABLE 12/05/2019 1:55 PM | | | | HISTORY: TACHYCARDIA. | | | | COMPARISON: None. | | | | Findings: | | Heart size is within normal limits. Atherosclerosis and tortuosity are noted of | | the aorta. Mediastinum demonstrates no acute findings. Central pulmonary | | vasculature is normal. There is mild scarring in the left lung base. The right | | lung is clear. Mild spondylosis is noted. | | | | IMPRESSION: | | No acute findings. | | | | Dictated and Signed by: Marquise Rodriguez MD | | Electronically signed: 12/05/2019 2:21 PM | + + + +---------+ + + | Performing | Address | City/State/Zipcode | Phone Number | | Organization | | | | + +---------+ + + | [facility] | | | | + +---------+ + + Protime INR (12/05/2019 1:34 PM PDT) + + + + + + | Component | Value | Ref Range | Performed | Pathologist | | | | | At | Signature | + + + + + + | Prothrombin | 30.6 (H) | 11.3 - 13.9 | [facility] | | | Time | | seconds | [facility] | | | | | | MEDICAL | | | | | | CENTER - | | | | | | LABORATORY | | + + + + + + | INR | 2.8 (H)Comment: Usual | 0.9 - 1.1 | [facility] | | | | Oral Anticoagulation | | [facility] | | | | Range: 2.0 - | | MEDICAL | | | | 3.0High Level Oral | | CENTER - | | | | Anticoagulation Range: | | LABORATORY | | | | 2.5 - 3.5 | | | | + + + + + + + + | Specimen | + + | Blood | + + + + + + + | Performing | Address | City/State/Zipcode | Phone Number | | Organization | | | | + + + + + | [facility] | [address] | [place] | [phone] | | [facility] | | [address] | | | - LABORATORY | | | | + + + + + Magnesium (12/05/2019 1:34 PM PDT) + +-------+ + + + | Component | Value | Ref Range | Performed | Pathologist | | | | | At | Signature | + +-------+ + + + | Magnesium | 1.9 | 1.6 - 2.6 mg/dL | [facility] | | | | | | [facility] | | | | | | MEDICAL | | | | | | CENTER - | | | | | | LABORATORY | | + +-------+ + + + + + | Specimen | + + | Blood | + + + + + + + | Performing | Address | City/State/Zipcode | Phone Number | | Organization | | | | + + + + + | [facility] | [address] | [place], [place] | [phone] | | [facility] | | [address] | | | - LABORATORY | | | | + + + + + Extra Lavender Top Tube (12/05/2019 1:34 PM PDT) + +-------+ + + + | Component | Value | Ref Range | Performed | Pathologist | | | | | At | Signature | + +-------+ + + + | Extra | Done | | [facility] | | | [facility] | | | [facility] | | | [facility] | | | [facility]ICAL | | | | | | CENTER - | | | | | | LABORATORY | | + +-------+ + + + + + | Specimen | + + | Blood | + + + + + + + | Performing | Address | City/State/Zipcode | Phone Number | | Organization | | | | + + + + + | [facility] | [address] | [place] | [phone] | | [facility] | | [address] | | | - LABORATORY | | | | + + + + + Extra Blue Top Tube (12/05/2019 1:34 PM PDT) + +-------+ + + + | Component | Value | Ref Range | Performed | Pathologist | | | | | At | Signature | + +-------+ + + + | Extra Blue | Done | | [facility] | | | Top [facility] | | | [facility] | | | | | | [facility] | | | | | | CENTER - | | | | | | LABORATORY | | + +-------+ + + + + + | Specimen | + + | Blood | + + + + + + + | Performing | Address | City/State/Zipcode | Phone Number | | Organization | | | | + + + + + | [facility] | [address] | [place] | [phone] | | [facility] | | [address] | | | - LABORATORY | | | | + + + + + Extra Fine Top Tube (12/05/2019 1:34 PM PDT) + +-------+ + + + | Component | Value | Ref Range | Performed | Pathologist | | | | | At | Signature | + +-------+ + + + | Extra Fine | Done | | [facility] | | | [facility] | | | [facility] | | | | | | [facility] | | | | | | CENTER - | | | | | | LABORATORY | | + +-------+ + + + + + | Specimen | + + | Blood | + + + + + + + | Performing | Address | City/State/Zipcode | Phone Number | | Organization | | | | + + + + + | [facility] | [address] | [place] | [phone] | | [facility] | | [address] | | | - LABORATORY | | | | + + + + + Extra Green Top Tube (12/05/2019 1:34 PM PDT) + +-------+ + + + | Component | Value | Ref Range | Performed | Pathologist | | | | | At | Signature | + +-------+ + + + | Extra Green | Done | | [facility] | | | [facility] | | | [facility] | | | | | | [facility] | | | | | | CENTER - | | | | | | LABORATORY | | + +-------+ + + + + + | Specimen | + + | Blood | + + + + + + + | Performing | Address | City/State/Zipcode | Phone Number | | Organization | | | | + + + + + | [facility] | [address] | [place] | [phone] | | [facility] | | [address] | | | - LABORATORY | | | | + + + + + B Type Natriuretic Peptide (12/05/2019 1:34 PM PDT) + + + + + + | Component | Value | Ref Range | Performed | Pathologist | | | | | At | Signature | + + + + + + | BNP | 605 (H)Comment: New | <100 pg/mL | [facility] | | | | method in use as of | | [employer] | | | | October 25, 2018. Check | | MEDICAL | | | | reference range for | | CENTER - | | | | changes.Some analytes | | LABORATORY | | | | show significant | | | | | | variation from the | | | | | | previous method.It may | | | | | | be necessary to set a | | | | | | new baseline for this | | | | | | analyte. | | | | + + + + + + + + | Specimen | + + | Blood | + + + + + + + | Performing | Address | City/State/Zipcode | Phone Number | | Organization | | | | + + + + + | [facility] | [address] | [place] | [phone] | | [facility] | | [address] | | | - LABORATORY | | | | + + + + + Troponin I (12/05/2019 1:34 PM PDT) + + + + + + | Component | Value | Ref Range | Performed | Pathologist | | | | | At | Signature | + + + + + + | Troponin I | 0.05Comment: | <0.06 ng/mL | [facility] | | | | Comment:Reference | | [facility] | | | | Ranges: 0.00-0.06 = | | MEDICAL | | | | NORMAL >0.06 = | | CENTER - | | | | SUSPICIOUS FOR | | LABORATORY | | | | MYOCARDIAL DAMAGE NOTE: | | | | | | Values greater than | | | | | | 0.78 ng/mL have been | | | | | | shown to be strongly | | | | | | associated with acute | | | | | | myocardial infarction. | | | | | | [employer] | | | | | | [employer] (ACC) | | | | | | recommends a decision | | | | | | limit of 0.06 ng/mL for | | | | | | this assay. Results | | | | | | greater than 0.06 can | | | | | | reflect a pre-infarct | | | | | | acute coronary syndrome, | | | | | | but can also reflect | | | | | | myocardial necrosis or | | | | | | injury that is not due | | | | | | to coronary artery | | | | | | disease. Some of these | | | | | | causes are sepsis, | | | | | | hypocolemia, atrial | | | | | | fibrillation, heart | | | | | | failure, pulmonary | | | | | | embolism, myocarditis, | | | | | | myocardial contusion, | | | | | | and renal failure. The | | | | | | diagnosis of myocardial | | | | | | infarction should be | | | | | | based on a combination | | | | | | of the patient's | | | | | | clinical presentation | | | | | | and the clinical | | | | | | laboratory test results | | | | | | (especially serial | | | | | | troponin levels). | | | | + + + + + + + + | Specimen | + + | Blood | + + + + + + + | Performing | Address | City/State/Zipcode | Phone Number | | Organization | | | | + + + + + | [facility] | [address] | [place] | [phone] | | [facility] | | [address] | | | - LABORATORY | | | | + + + + + Comprehensive Metabolic Panel (12/05/2019 1:34 PM PDT) + + + + + + | Component | Value | Ref Range | Performed | Pathologist | | | | | At | Signature | + + + + + + | Na | 137 | 136 - 145 | [facility] | | | | | mmol/L | [facility] | | | [facility] | | | | | | [facility] - | | | | | | LABORATORY | | + + + + + + | K | 3.8 | 3.4 - 5.1 | [facility] | | | | | mmol/L | [facility] | | | [facility] | [facility] | | | | | | [facility] - | | | | | | LABORATORY | | + + + + + + | Cl | 101 | 98 - 107 mmol/L | [facility] | | | | | | [facility] | | | | [facility] | [facility] | | | | | | [facility] - | | | | | | LABORATORY | | + + + + + + | CO2 | 28 | 20 - 31 mmol/L | [facility] | | | | | | [facility] | | | [facility] | [facility] | | | | | | [facility] - | | | | | | LABORATORY | | + + + + + + | Anion Gap | 8 | 3 - 16 mmol/L | [facility] | | | | | | [facility] | | | | [facility] | [facility] | | | | | | [facility] - | | | | | | LABORATORY | | + + + + + + | Glucose | 96 | 60 - 106 mg/dL | [facility] | | | | | | [facility] | | | [facility] | [facility] | | | | | | [facility] - | | | | | | LABORATORY | | + + + + + + | BUN | 13 | 9 - 23 mg/dL | [facility] | | | | | | [facility] | | | [facility] | [facility] | | | | | | [facility] - | | | | | | LABORATORY | | + + + + + + | Creatinine | 1.16 | 0.70 - 1.30 | [facility] | | | | | mg/dL | [facility] | | | | [facility] | [facility] | | | | | | [facility] - | | | | | | LABORATORY | | + + + + + + | eGFR if not | >60Comment: GLOMERULAR | >=60 | [facility] | | | | FILTRATION | mL/min/1.73m2 | [facility] | | | CAMBOD[facility] | RATE,ESTIMATED | | MEDICAL | | | | mL/min/[id number] than | | CENTER - | | | | 60 Chronic kidney | | LABORATORY | | | | disease,if found over a | | | | | | 3-month period.Less than | | | | | | 15 Kidney failureFor | | | | | | | | | | | | Americans,multiply the | | | | | | calculated GFR by 1.21. | | | | | | | | | | + + + + + + | Calcium | 9.4 | 8.7 - 10.4 | [facility] | | | | | mg/dL | [facility] | | | | | | [facility] | | | | | | CENTER - | | | | | | LABORATORY | | + + + + + + | Albumin | 4.5 | 3.2 - 4.8 g/dL | [facility] | | | | | | [facility] | | | | [facility] | [facility] | | | | | | [facility] - | | | | | | LABORATORY | | + + + + + + | Bilirubin | 0.6 | 0.3 - 1.2 mg/dL | [facility] | | | Total | | | [facility] | | | | | | [facility] | | | | | | C[facility] - | | | | | | LABORATORY | | + + + + + + | Total | 7.0 | 5.7 - 8.2 g/dL | [facility] | | | Protein | | | [facility] | | | | | | [facility] | | | | | | CENTER - | | | | | | LABORATORY | | + + + + + + | AST | 19 | 0 - 34 U/L | [facility] | | | | | | [facility] | | | | | | [facility] | | | | | | C[facility] - | | | | | | LABORATORY | | + + + + + + | ALT | 17 | 10 - 49 U/L | [facility] | | | | | | [facility] | | | | | | [facility] | | | | | | CENTER - | | | | | | LABORATORY | | + + + + + + | Alkaline | 71 | 46 - 116 U/L | [facility] | | | Phosphatase | | | [facility] | | | | | | [facility] | | | | | | CENTER - | | | | | | LABORATORY | | + + + + + + | Globulin | 2.5 | 2.1 - 3.8 g/dL | [facility] | | | | | | [facility] | | | [facility] | [facility] | | | | | | [facility] - | | | | | | LABORATORY | | + + + + + + | Albumin/Allie | 1.8 | 0.8 - 1.9 | [facility] | | | bulin Ratio | | | [facility] | | | | | | [facility] | | | | | | CENTER - | | | | | | LABORATORY | | + + + + + + | BUN/Creatin | 11.2 | | [facility] | | | ine Ratio | | | [facility] | | | | | | [facility] | | | | | | CENTER - | | | | | | LABORATORY | | + + + + + + + + | Specimen | + + | Blood | + + + + + + + | Performing | Address | City/State/Zipcode | Phone Number | | Organization | | | | + + + + + | [facility] | [address] | [place] | [phone] | | [facility] | | [address] | | | - LABORATORY | | | | + + + + + CBC with Differential (12/05/2019 1:34 PM PDT) + + + + + + | Component | Value | Ref Range | Performed | Pathologist | | | | | At | Signature | + + + + + + | White Blood | 9.5 | 4.0 - 11.0 K/uL | [facility] | | | Cells | | | [facility] | | | | | | [facility] | | | | | | CENTER - | | | | | | LABORATORY | | + + + + + + | Red Blood | 5.01 | 4.30 - 5.70 | [facility] | | | Cells | | M/uL | [facility] | | | | | | [facility] | | | | | | CENTER - | | | | | | LABORATORY | | + + + + + + | Hemoglobin | 14.4 | 13.5 - 18.0 | [facility] | | | | | g/dL | [facility] | | | | | | [facility] | | | | | | CENTER - | | | | | | LABORATORY | | + + + + + + | Hematocrit | 44.8 | 40.0 - 51.0 % | [facility] | | | | | | [facility] | | | [facility] | | [facility] | | | | | | C[facility] - | | | | | | LABORATORY | | + + + + + + | MCV | 89.4 | 83.0 - 101.0 fL | [facility] | | | | | | [facility] | | | [facility] | [facility] | | | | | | C[facility] - | | | | | | LABORATORY | | + + + + + + | MCH | 28.7 | 28.0 - 35.0 pg | [facility] | | | | | | [facility] | | | | | | [facility] | | | | | | [facility] - | | | | | | LABORATORY | | + + + + + + | MCHC | 32.1 | 32.0 - 36.0 | [facility] | | | | | g/dL | [facility] | | | | | | [facility] | | | | | | C[facility] - | | | | | | LABORATORY | | + + + + + + | RDW-CV | 16.7 (H) | <15.0 % | [facility] | | | | | | [facility] | [facility] | | | | | | C[facility] - | | | | | | LABORATORY | | + + + + + + | RDW-SD | 54.8 (H) | 35.1 - 46.3 fL | [facility] | | | | | | [facility] | | [facility] | [facility] | | | | | | [facility] - | | | | | | LABORATORY | | + + + + + + | Platelet | 282 | 140 - 440 K/uL | [facility] | | | Count | | | [facility] | | | | | | [facility] | | | | | | CENTER - | | | | | | LABORATORY | | + + + + + + | MPV | 9.3 | 6.5 - 12.4 fL | [facility] | | | | | | [facility] | | | | | | [facility] | | | | | | C[facility] - | | | | | | LABORATORY | | + + + + + + | % | 75.6 | 45.0 - 82.0 % | [facility] | | | Neutrophils | | | [facility] | | | | | | [facility] | | | | | | CENTER - | | | | | | LABORATORY | | + + + + + + | % | 14.4 (L) | 20.0 - 45.0 % | [facility] | | | Lymphocytes | | | [facility] | | | | | | [facility] | | | | | | CENTER - | | | | | | LABORATORY | | + + + + + + | % Monocytes | 8.6 | 4.0 - 12.0 % | [facility] | | | | | | [facility] | | | | | | [facility] | | | | | | [facility] - | | | | | | LABORATORY | | + + + + + + | % | 0.7 | 0.0 - 5.0 % | [facility] | | | Eosinophils | | | [facility] | | | | | | [facility] | | | | | | CENTER - | | | | | | LABORATORY | | + + + + + + | % Basophils | 0.4 | 0.0 - 1.0 % | [facility] | | | | | | [facility] | | | | | | [facility] | | | | | | CENTER - | | | | | | LABORATORY | | + + + + + + | % Immature | 0.3 | 0.0 - 0.4 % | [facility] | | | Granulocyte | | | [facility] | | | s | | | MEDICAL | | | | | | CENTER - | | | | | | LABORATORY | | + + + + + + | Absolute | 7.14 | 1.80 - 8.50 | [facility] | | | Neutrophils | | K/uL | [facility] | | | | | | [facility] | | | | | | CENTER - | | | | | | LABORATORY | | + + + + + + | Absolute | 1.36 | 0.60 - 3.20 | [facility] | | | Lymphocytes | | K/uL | [facility] | | | | | | [facility] | | | | | | C[facility] - | | | | | | LABORATORY | | + + + + + + | Absolute | 0.81 | 0.00 - 1.00 | [facility] | | | Monocytes | | K/uL | [facility] | | | | | | [facility] | | | | | | C[facility] - | | | | | | LABORATORY | | + + + + + + | Absolute | 0.07 | 0.00 - 0.40 | [facility] | | | Eosinophils | | K/uL | [facility] | | | | | | [facility] | | | | | | C[facility] - | | | | | | LABORATORY | | + + + + + + | Absolute | 0.04 | 0.00 - 0.10 | [facility] | | | Basophils | | K/uL | [facility] | | | | | | [facility] | | | | | | C[facility] - | | | | | | LABORATORY | | + + + + + + | Absolute | 0.03 | 0.00 - 0.03 | [facility] | | | Immature | | K/uL | [facility] | | | Granulocyte | | | MEDICAL | | | s | | | CENTER - | | | | | | LABORATORY | | + + + + + + | % nRBC | 0 | 0 - 2 per 100 | [facility] | | | | | WBCs | [facility] | | | | | | [facility] | | | | | | CENTER - | | | | | | LABORATORY | | + + + + + + | Absolute | 0.00 | 0.00 - 0.01 | [facility] | | | nRBC | | K/uL | [facility] | | | | | | [facility] | | | | | | CENTER - | | | | | | LABORATORY | | + + + + + + + + | Specimen | + + | Blood | + + + + + + + | Performing | Address | City/State/Zipcode | Phone Number | | Organization | | | | + + + + + | [facility] | [address] | [place] | [phone] | | [facility] | | [address] | | | - LABORATORY | | | | + + + + + ECG 12 lead (12/05/2019 1:30 PM PDT) + + + + + + | Component | Value | Ref Range | Performed | Pathologist | | | | | At | Signature | + + + + + + | VENTRICULAR | 155 | BPM | [facility] | | [...] + + + + | Q-T | 482 | ms | [facility] | | | INTERVAL | | | | | | (CORRECTED) | | | | | + + + + + + | T AXIS | 52 | degrees | [facility] | | + + + + + + | INTERPRETAT | Atrial fibrillation with | | [facility] | | | ION TEXT | rapid ventricular | | | | | | responseNonspecific ST | | | | | | abnormalityWhen compared | | | | | | with ECG of 09-JUL-2019 | | | | | | 11:36,T wave amplitude | | | | | | has increased in Lateral | | | | | | leadsConfirmed by | | | | | | ANTHONY MARIE MD ([id number]) | | | | | | on 12/08/2019 6:58:30 AM | | | | + + + [...] | Diagnosis | + + | Atrial fibrillation with RVR (HCC) - Primary Atrial fibrillation | + + | Acute on chronic systolic (congestive) heart failure (HCC) | + + | Essential hypertension Unspecified essential hypertension | + + | Chronic systolic congestive heart failure (HCC) Chronic systolic heart failure | + + | Atrial fibrillation (HCC) Atrial fibrillation | + + documented in this encounter Administered Medications + +--------+ +---------+------+------+ | Medication Order | MAR | Action | Dose | Rate | Site | | | Action | Date | | | | + +--------+ +---------+------+------+ | digoxin (LANOXIN) 250 mcg/mL | Given | 12/06/19 | 250 mcg | | | | injection 250 mcg 250 mcg, | | 20 4:21 | | | | | Intravenous, Administer over 5 | | AM PDT | | | | | Minutes, ONCE, [facility] 12/06/19 at | | | | | | | 0430, For 1 dose, SLOW IV | | | | | | | injection over at least 5 | | | | | | | minutes, | | | | | | + +--------+ +---------+------+------+ +---+---+ | | | +---+---+ + + + + + +---+ | dilTIAZem (CARDIZEM) 1 mg/mL in | Rate/Dos | 12/05/19 | 15 mg/hr | 15 mL/hr | | | sodium chloride 0.9% 125 mL | e Change | 20 2:28 | | | | | infusion 0-15 mg/hr (0-15 | | PM PDT | | | | | mL/hr), at 0-15 mL/hr, | | | | | | | Intravenous, TITRATED, Starting | | | | | | | 12/05/19 at 1335, Titration | | | | | | | Instruction: See below, Goal: HR | | | | | | | less than 100, Initial dose: 5 | | | | | | | mg/hr, Increase rate by: 5 mg/hr | | | | | | | every 15 minutes., Decrease rate | | | | | | | by: 5 mg/hr every 15 minutes., *: | | | | | | | Titrate drug per order as | | | | | | | tolerated. Titration may vary | | | | | | | based on the patient | | | | | | | | | | | | | | s critical condition. | | | | | | + + + + + +---+ + + + + +---+ | Rate/Dose Change | 12/05/19 | 10 mg/hr | 10 mL/hr | | | | 20 2:06 | | | | | | PM PDT | | | | + + + + +---+ | New Bag | 12/05/19 | 5 mg/hr | 5 mL/hr | | | | 20 1:50 | | | | | | PM PDT | | | | + + + + +---+ +---+---+ | | | +---+---+ + +-------+ +-------+---+---+ | dilTIAZem (CARDIZEM) injection | Given | 12/05/19 | 10 mg | | | | 10 mg 10 mg, Intravenous, ONCE, | | 20 1:38 | | | | | 12/05/19 at 1335, For 1 dose, | | PM PDT | | | | | Keep in refrigerator., | | | | | | + +-------+ +-------+---+---+ +---+---+ | | | +---+---+ + +-------+ +-------+---+---+ | dilTIAZem (CARDIZEM) tablet 30 | Given | 12/06/19 | 30 mg | | | | mg 30 mg, Oral, EVERY 6 HOURS ( 11:28 | | | | | times per day), First dose on | | AM PDT | | | | | [facility] 12/06/19 at 1200, Hold for SBP | | | | | | | <90 or heart rate <60, | | | | | | + +-------+ +-------+---+---+ +---+---+ | | | +---+---+ + +-------+ +-------+---+---+ | dilTIAZem (CARDIZEM) tablet 60 | Given | 12/07/19 | 60 mg | | | | mg 60 mg, Oral, EVERY 6 HOURS ( | | 20 5:07 | | | | | times per day), First dose | | AM PDT | | | | | (after last modification) on [facility] | | | | | | | 12/06/19 at 1800, Hold for SBP <90 | | | | | | | or heart rate <60, | | | | | | + +-------+ +-------+---+---+ +-------+ +-------+---+---+ | Given | 12/07/19 | 60 mg | | | | | 20 12:00 | | | | | | AM PDT | | | | +-------+ +-------+---+---+ | Given | 12/06/19 | 60 mg | | | | | 20 5:19 | | | | | | PM PDT | | | | +-------+ +-------+---+---+ +---+---+ | | | +---+---+ + +---------+ + +--------+---+ | esmolol drip in saline | New Bag | 12/06/19 | 300 | 146.9 | | | (BREVIBLOC) 10 mg/mL infusion | | 20 2:43 | mcg/kg/m | mL/hr | | | 0-300 mcg/kg/min | | AM PDT | in | | | | 81.6 kg (0-146.88 mL/hr, rounded | | | | | | | to 0-146.9 mL/hr), at 0-146.9 | | | | | | | mL/hr, Intravenous, TITRATED, | | | | | | | Starting 12/05/19 at 1605, | | | | | | | Titration Instruction: See below, | | | | | | | Goal: Target heart rate 100, | | | | | | | Initial infusion dose: 50 | | | | | | | mcg/kg/min, Increase rate by: 50 | | | | | | | mcg/kg/min every 4 minutes., | | | | | | | Decrease rate by: 50 mcg/kg/min | | | | | | | every 4 minutes., *: Titrate drug | | | | | | | per order as tolerated. | | | | | | | Titration may vary based on the | | | | | | | patient | | | | | | | | | | | | | | s critical condition. | | | | | | + +---------+ + +--------+---+ + + + +--------+---+ | New Bag | 12/06/19 | 250 | 122.4 | | | | 20 12:42 | mcg/kg/m | mL/hr | | | | AM PDT | in | | | + + + +--------+---+ | Rate/Dose Change | 12/05/19 | 200 | 97.9 | | | | 20 11:25 | mcg/kg/m | mL/hr | | | | PM PDT | in | | | + + + +--------+---+ +---+---+ | | | +---+---+ + +-------+ +-------+---+---+ | furosemide (LASIX) injection 40 | Given | 12/05/19 | 40 mg | | | | mg 40 mg, Intravenous, 2 TIMES | | 20 4:08 | | | | | DAILY 0800 & 1600, First dose on | | PM PDT | | | | | 12/05/19 at 1600 | | | | | | + +-------+ +-------+---+---+ +---+---+ | | | +---+---+ + +-------+ +-------+---+---+ | furosemide (LASIX) injection 40 | Given | 12/07/19 | 40 mg | | | | mg 40 mg, Intravenous, 2 TIMES | | 20 8:15 | | | | | DAILY 0800 & 1600, First dose | | AM PDT | | | | | (after last modification) on [facility] | | | | | | | 12/06/19 at 0800 | | | | | | + +-------+ +-------+---+---+ +-------+ +-------+---+---+ | Given | 12/06/19 | 40 mg | | | | | 20 3:30 | | | | | | PM PDT | | | | +-------+ +-------+---+---+ | Given | 12/06/19 | 40 mg | | | | | 20 8:18 | | | | | | AM PDT | | | | +-------+ +-------+---+---+ + +---+ | | | + +---+ | hydrALAZINE (APRESOLINE) | | | injection 10 mg 10 mg, | | | Intravenous, EVERY 4 HOURS PRN, | | | For SBP persistently greater than | | | 150 at rest, Starting 12/05/19 | | | at 1548 | | + +---+ | | | + +---+ + +-------+ +------+---+---+ | melatonin tablet 3 mg 3 mg, | Given | 12/06/19 | 3 mg | | | | Oral, NIGHTLY, First dose on Tue | | 20 10:18 | | | | | 12/05/19 at 2100 | | PM PDT | | | | + +-------+ +------+---+---+ +-------+ +------+---+---+ | Given | 12/05/19 | 3 mg | | | | | 20 9:53 | | | | | | PM PDT | | | | +-------+ +------+---+---+ +---+---+ | | | +---+---+ + +-------+ +--------+---+---+ | metoprolol succinate | Given | 12/07/19 | 200 mg | | | | (TOPROL-XL) ER tablet 200 mg 200 | | 20 10:04 | | | | | mg, Oral, DAILY, First dose on | | AM PDT | | | | | 12/07/19 at 0900, Tablet may | | | | | | | be cut where scored but do not | | | | | | | crush., | | | | | | + +-------+ +--------+---+---+ +---+---+ | | | +---+---+ + +-------+ +------+---+---+ | metoprolol tartrate (LOPRESSOR) | Given | 12/06/19 | 5 mg | | | | injection 5 mg 5 mg, | | 20 8:24 | | | | | Intravenous, EVERY 4 HOURS PRN, | | AM PDT | | | | | For heart rate persistently | | | | | | | greater than 120 bpm at rest. | | | | | | | Hold for SBP less than 90 or map | | | | | | | less than 65., Starting Wed | | | | | | | 12/05/19 at 1820 | | | | | | + +-------+ +------+---+---+ +---+---+ | | | +---+---+ + +-------+ +-------+---+---+ | metoprolol tartrate (LOPRESSOR) | Given | 12/07/19 | 25 mg | | | | tablet 25 mg 25 mg, Oral, 3 | | 20 8:15 | | | | | TIMES DAILY, First dose on [facility] | | AM PDT | | | | | 12/06/19 at 0900, Hold for SBP <100 | | | | | | | or heart rate <60, | | | | | | + +-------+ +-------+---+---+ +-------+ +-------+---+---+ | Given | 12/06/19 | 25 mg | | | | | 20 10:19 | | | | | | PM PDT | | | | +-------+ +-------+---+---+ | Given | 12/06/19 | 25 mg | | | | | 20 3:30 | | | | | | PM PDT | | | | +-------+ +-------+---+---+ +---+---+ | | | +---+---+ + +-------+ +--------+---+---+ | potassium chloride (Klor-Con | Given | 12/07/19 | 40 mEq | | | | M20) ER tablet 40 mEq 40 mEq, | | 20 10:04 | | | | | Oral, ONCE, Tue12/07/19 at 0845, | | AM PDT | | | | | For 1 dose | | | | | | + +-------+ +--------+---+---+ +---+---+ | | | +---+---+ + +-------+ +------+---+---+ | warfarin (COUMADIN) tablet 5 mg | Given | 12/05/19 | 5 mg | | | | 5 mg, Oral, ONCE, Tue12/05/19 at | | 20 9:53 | | | | | 2215, For 1 dose, Reproductive | | PM PDT | | | | | Risk: Use appropriate handling | | | | | | | precautions. Drug education | | | | | | | required., | | | | | | + +-------+ +------+---+---+ +---+---+ | | | +---+---+ + +-------+ +------+---+---+ | warfarin (COUMADIN) tablet 6 mg | Given | 12/06/19 | 6 mg | | | | 6 mg, Oral, Daily - Warfarin, | | 20 5:20 | | | | | First dose (after last reorder) | | PM PDT | | | | | on [facility] 12/06/19 at 1800, | | | | | | | Reproductive Risk: Use | | | | | | | appropriate handling precautions. | | | | | | | Drug education required., | | | | | | + +-------+ +------+---+---+ +---+---+ | | | +---+---+ documented in this encounter
--- OUTSIDE RECORDS SUMMARY | ~2020-03-10 | XMS | Clinical Summary ---
Demographics + + + | Address | [address] | | | [place] [address] | + + + | Home Phone | | + + + | Preferred Language | Unknown | + + + | Marital Status | | + + + | Quaker Affiliation | Unknown | + + + | Race | Unknown | + + + | Ethnic Group | Unknown | + + + Author + + + | Author | [facility] | | | and Ernestoana | + + + | Organization | [facility] | | | and Ernestoana | [...] Team Providers + +------+ + | Care Dough Mixer Operator Name | Role | Phone | + +------+ + | Josafat Steve PCP | | + +------+ + Allergies No Known Allergies Medications + + + +---------+------+------+-------+ | Medication | Sig | Dispensed | Refills | Star | End | Statu | | | | | | t | Date | s | | | | | | Date | | | + + + +---------+------+------+-------+ | cyclobenzaprine | Take 10 mg by mouth | | 5 | 07/0 | | Activ | | (FLEXERIL) 10 mg | 3 (three) times | | | 3/20 | | e | | tablet | daily. | | | 19 | | | + + + +---------+------+------+-------+ | CARTIA XT 240 MG | TAKE 1 CAPSULE BY | | 5 | 07/0 | | Activ | | 24 hr capsule | MOUTH IN THE MORNING | | | /20 | | e | | | ON AN EMPTY STOMACH | | | 19 | | | + + + +---------+------+------+-------+ | doxazosin (CARDURA | Take 4 mg by mouth | | 0 | | | Activ | | XL) 4 MG 24 hr | daily (with | | | | | e | | tablet | breakfast). | | | | | | + + + +---------+------+------+-------+ | warfarin | Take 7.5 mg by mouth | | 0 | | | Activ | | (COUMADIN) 5 mg | five times weekly | | | | | e | | tablet | on Tuesday, Tuesday, | | | | | | | | Tuesday, | | | | | | | | and TuesdayManaged | | | | | | | | by Josafat Steve at | | | | | | | | [facility] | | | | | | | | Medicine | | | | | | + + + +---------+------+------+-------+ | warfarin | Take 5 mg by mouth | | 0 | | | Activ | | (COUMADIN) 5 mg | twice weekly on | | | | | e | | tablet | Tuesday and Tuesday | | | | | | | | Managed by Josafat | | | | | | | | [place] | | | | | | | | Family Medicine | | | | | | + + + +---------+------+------+-------+ | potassium chloride | Take 1 tablet by | 60 | 0 | 04/1 | | Activ | | (KLOR-CON M20) 20 | mouth 2 times daily. | tablet | | 0/20 | | e | | mEq ER tablet | | | | 20 | | | + + + +---------+------+------+-------+ | furosemide (LASIX) | TAKE 1 TABLET BY | | 0 | 06/0 | | Activ | | 80 mg tablet | MOUTH TWICE DAILY | | | 3/20 | | e | | | | | | 20 | | | + + + +---------+------+------+-------+ | metoprolol | Take 1 tablet by | 30 | 11 | 01/27 | | Activ | | succinate | mouth Daily. For | tablet | | 03/17 | | e | | (TOPROL-XL) 200 mg | your heart rate and | | | 20 | | | | ER tablet | your blood pressure | | | | | | + + + +---------+------+------+-------+ | lisinopril | Take 1 tablet by | 30 | 11 | 01/27 | | Activ | | (PRINIVIL,ZESTRIL) | mouth Daily. For | tablet | | 03/17 | | e | | 2.5 MG tablet | your blood pressure | | | 20 | | | | | and heart | | | | | | + + + +---------+------+------+-------+ | metoprolol | TAKE 4 TABLETS BY | | 1 | 07/0 | 01/27 | Disco | | succinate | MOUTH ONCE DAILY | | | 11/15 | 03/17 | ntinu | | (TOPROL-XL) 50 mg 24 | | | | 19 | 20 | ed | | hr tablet | | | | | | (Alte | | | | | | | | rnate | | | | | | | | | | | | | | | | thera | | | | | | | | py) | + + + +---------+------+------+-------+ | lisinopril | | | 3 | 05/ | 01/27 | Disco | | (PRINIVIL,ZESTRIL) | | | | 0/20 | 7/20 | ntinu | | 2.5 MG tablet | | | | 19 | 20 | ed | | | | | | | | (Reor | | | | | | | | ze | | | | | | | | (no | | | | | | | | Cance | | | | | | | | l Rx | | | | | | | | msg)) | + + + +---------+------+------+-------+ | furosemide (LASIX) | Take 2 tablets by | 30 | 1 | 04/ | 01/27 | Disco | | 20 mg tablet | mouth 2 times daily. | tablet | | 0/20 | 7/20 | ntinu | | | | | | 20 | 20 | ed | | | | | | | | (Ther | | | | | | | | apy | | | | | | | | compl | | | | | | | | eted) | + + + +---------+------+------+-------+ Active Problems + + + | Problem | Noted Date | + + + | Dependent edema | 03/04/2020 | + + + | BONDS (dyspnea on exertion) | 06/26/2019 | + + + | Essential hypertension | | + + + | Prostate hypertrophy | | + + + | [facility] (current) use of anticoagulants | | + + + | Chronic systolic congestive heart failure | | + + + | Atrial fibrillation | | + + + + + | Overview: 24 hour holter monitor June 2019: 24-hour | | Holter monitor notable for underlying atrial fibrillation with | | mean heart rate 96. Rare PVCs without significant sustained runs. | | No bradycardia was noted. No symptoms reported. Dhaval Sweeney, | | MDEchocardiogram November 2019: Left ventricle is normal in size | | with severe systolic dysfunction in the context of underlying | | irregular tachycardia. LVEF is estimated in the range of 20-25%. | | Structurally normal tricuspid valve with trace insufficiency and | | peak velocity consistent with RVSP 29-34 mmHg. Right atrium is | | mild to moderately enlarged. Moderate to severe RV enlargement | | with reduced systolic function. Dhaval Sweeney MD | + + Resolved Problems + + + + | Problem | Noted | Resolved | | | Date | Date | + + + + | Atrial fibrillation with RVR | 12/05/19 | | | | 20 | 0 | + + + + | Acute on chronic systolic (congestive) heart failure | 12/05/19 | | | | 20 | 0 | + + + + Encounters +--------+ + + + + | Date | Type | Specialty | Care Team | Description | +--------+ + + + + | 03/10/ | Abstract | Cardiology | Del Sweeney | | | 2019 | | | MD Dhaval | | +--------+ + + + + | 03/05/ | Telephone | Cardiology | Noreen Rosario | Other (plan of care) | | 2020 | | | [place] Daniel | | +--------+ + + + + | 03/03/ | Abstract | Cardiology | Noreen Rosario | | 2019 | | | [place] | | +--------+ + + + + | 02/26/ | Office | Cardiology | Noreen Rosario | Essential | | 2019 | Visit | | [place] | hypertension | | | | | | (Primary Dx); | | | | | | Chronic systolic | | | | | | congestive heart | | | | | | failure (HCC); | | | | | | Atrial fibrillation, | | | | | | unspecified type | | | | | | (HCC); BONDS (dyspnea | | | | | | on exertion) | +--------+ + + + + | 02/20/ | Telephone | Cardiology | Noreen Rosario | LABS | 2019 | | | [place] | | +--------+ + + + + | 02/12/ | Office | Cardiology | Noreen Rosario | Essential | | 2019 | Visit | | [place] | hypertension | | | | | | (Primary Dx); | | | | | | Chronic systolic | | | | | | congestive heart | | | | | | failure (HCC); | | | | | | Atrial fibrillation, | | | | | | unspecified type | | | | | | (HCC); BONDS (dyspnea | | | | | | on exertion) | +--------+ + + + + | 02/10/ | Telephone | Cardiology | Noreen Rosario | Lab Order | 2019 | | | [place] | | +--------+ + + + + | 12/11/ | Telephone | Cardiology | Noreen Rosario | Appointment | | 2019 | | | [place] | | +--------+ + + + + | 12/10/ | Office | Cardiology | Del Sweeney | Essential | | 2020 | Visit | | MD Dhaval | hypertension | | | | | | (Primary Dx); | | | | | | Chronic systolic | | | | | | congestive heart | | | | | | failure (HCC); | | | | | | Atrial fibrillation, | | | | | | unspecified type | | | | | | (HCC) | +--------+ + + + + from Last 3 Months Immunizations + + + + | Name | Administration Dates | Next Due | + + + + | TDAP, (ADOL/ADULT) | 01/15/2012 | | + + + + Family History + + +------+ + | Medical History | Relation | Name | Comments | + + +------+ + | Cancer | Father | | | + + +------+ + | Cancer | Mother | | | + + +------+ + + +------+--------+ + | Relation | Name | Status | Comments | + +------+--------+ + | Father | | | | + +------+--------+ + | Mother | | | | + +------+--------+ + Social History + +-------+ +--------+ + [...] on file | | + + + Last Filed Vital Signs + + + [...] | | + + + + + Plan of Treatment +--------+ + + + + | Date | Type | Specialty | Care Team | Description | +--------+ + + + + | 04/02/ | Appointment | Radiology | Noreen Rosario | | | 2019 | | | TOBIN Daniel [address] | | | | | | [address] [place] | | | | | | [place] [address] | | | | | | [phone] | | | | | | | | +--------+ + + + + | 04/08/ | Office | Cardiology | eDl Sweeney | | | 2019 | Visit | | MD Dhaval [address] | | | | | | [address] [place] | | | | | | [place] [address] | | | | | | [phone] | | | | | | | | +--------+ + + + + + + + + + | Health Maintenance | Due Date | Last | Comments | | | | Done | | + + + + + | Vaccine: Zoster (1 | | | | | of 2) | 3 | | | + + + + + | Vaccine: | | | | | Pneumococcal 65+ (1 | 8 | | | | of 1 - PPSV23) | | | | + + + + + | Adult Annual | | | | | Wellness Visit | 9 | | | + + + + + | Vaccine: Influenza | | | | | (#1) | 0 | | | + + + + + | Vaccine: | | 01/15/20 | | | Dtap/Tdap/Td (2 - | 2 | 12 | | | Td) | | | | + + + + + Procedures + +--------+ + + + | [...] +--------+ + + + | EXTERNAL LAB: BUN | Routin | 01/30/2020 | | Results [...] section. | + +--------+ + + + from Last 3 Months Results External Lab: B Type Naturetic Peptide [...] + + | Blood | + + LABS - EXTERNAL SCAN (03/05/2020 12:00 AM PDT)Only the most recent of 2 results within the time period is included. + + + | Narrative | Performed At | + + + | Ordered by an | | | unspecified provider. | | + + + ECG 12 lead (02/13/2020 12:55 PM PDT) [...] MD | | | | | | ([id number]) on 02/15/2020 | | | | | [...] | | | + +---------+ + + External Lab: [facility] (01/30/2020) + +--------+ + + + | [...] + + | Blood | + + CBC with Differential (01/30/2020) + +-------+ + [...] + + | Blood | + + from Last 3 Months Insurance + +--------+ +--------+ +---------+--------+ | Payer | Benefi | Subscriber | Effect | Phone | Address | Type | | | t Plan | ID | fito | | | | | | / | | Dates | | | | | | Group | | | | | | + +--------+ +--------+ +---------+--------+ | MEDICARE | RAILRO | [id number] | 10/28/19 | [phone] | | Medica | | | AD | | 06-Pre | 5 | | re | | | MEDICA | | sent | | | | | | RE | | | | | | + +--------+ +--------+ +---------+--------+ | MEDICARE | RAILRO | [id number] | 10/28/19 | [phone] | | Medica | | | AD | | 06-Pre | 5 | | re | | | MEDICA | | sent | | | | | | RE | | | | | | + +--------+ +--------+ +---------+--------+ | CIGNA | CIGNA | [id number] | 03/29/20 | [id number] | | Indemn | | | MDCR | | 18-Pre | 1 | | ity | | | SUPPLE | | sent | | | | | | MENT | | | | | | | | SOLUTI | | | | | | | | ONS | | | | | | + +--------+ +--------+ +---------+--------+ | CIGNA | CIGNA | [id number] | 03/29/20 | [id number] | | Indemn | | | MDCR | | 18-Pre | 1 | | ity | | | SUPPLE | | sent | | | | | | MENT | | | | | | | | SOLUTI | | | | | | | | ONS | | | | | | + +--------+ +--------+ +---------+--------+ + +--------+ +--------+ + + | Guarantor Name | Accoun | Relation to | Date | Phone | Billing Address | | | t Type | Patient | of | | | | | | | | | | + +--------+ +--------+ + + | Griffin Lambert | Person | Self | [birth year] | [address] | | | al/Fam | | 1945 | [phone] | [place] [address] | | | kristen | | | 8 (Home) | | + +--------+ +--------+ + + | Griffin Lambert | Person | Self | [birth year] | [address] | | | al/Fam | | 1945 | [phone] | [place] [address] | | | kristen | | | 8 (Home) | | + +--------+ +--------+ + + Advance Directives + + + + + | Type | Date Recorded | Patient | Explanation | | | | Managed Care Nurse | | + + + + + | Power of | | | | | Guard Chief | | | | + + + + + | Advance | 12/05/2019 7:51 | | | | Directive | PM | | | + + + + + + + + + + | Code Status | Date | Date | Comments | | | Activated | Inactivated | | + + + + + | Full Code | 12/06/2019 | 12/07/2019 | | | | 9:21 AM | 2:20 PM | | + + + + + + + + +---+ | | | | | + + + +---+ | Full Code | 12/05/2019 | 12/06/2019 | | | by default | 6:20 PM | 9:21 AM | | | - TBD | | | | + + + +---+
--- OUTSIDE RECORDS SUMMARY | ~2020-03-10 | XMS | Encounter Summary ---
Demographics + + + | Address | [address] | | | [place] [address] | + + + | Home Phone | | + + + | Preferred Language | Unknown | + + + | Marital Status | | + + + | Mormonism Affiliation | Unknown | + + + | Race | Unknown | + + + | Ethnic Group | Unknown | + + + Author + + + | Author | [facility] | | | and rEnestoana | + + + | Organization | [facility] | | | and Ernestoana [...] Team Providers + +------+ + | Care Demand Inspector Name | Role | Phone | + +------+ + | Josafat Steve PCP | | + +------+ + Reason for Visit + +--------+ + | Reason | Onset | Comments | | | Date | | + +--------+ + | Referral | 05/22/ | outgoing | | | 2018 | | + +--------+ + Encounter Details +--------+ + + + + | Date | Type | Department | Care Team | Description | +--------+ + + + + | 05/22/ | Telephone | [facility] | Herber Carbajal, | Referral (outgoing) | | 2019 | | NEUROSURGERY [address] DINKEY MECHANIC [address] | | | | | [address] | [address] | | | | | [place], [place] | [place] [address] | | | | | [address] | [phone] | | | | | [phone] | | | +--------+ + + + [...] this encounter Miscellaneous Notes Telephone Encounter - Anna Marie Ca Lead Worker Of Housekeeping And Laundry - 05/22/2019 2:45 PM PDTForwarded to Mary Salcedo accreditation coordinator. elephone Encounter - GoodmanAp - 05/22/2019 2:27 PM PDTGa ry, is calling regarding Referral (outgoing) and would like a call back. Additional Call Details: Requesting a referral be sent to [facility] at Fax number [phone]. Phone number for them is [phone]. If this is a symptom based call, was patient offered triage? Not Applicable If this is a symptom based call and you were unable to immediately transfer the call to a bisi alaniz professor of practice was caller made aware that if at [...] | | | | | [place] [address] | | | | | | [phone] | | | | | | | | +--------+ + + + + | 04/08/ | Office | Cardiology | Del Sweeney | | 2019 | Visit | | MD Anam [address] | | | | | | [address] [place] | | | | | | [place] [address] | | | | | | [phone] | | | | | | | | +--------+ + + + + documented as of this encounter Visit Diagnoses Not on filedocumented in this encounter"
--- OUTSIDE RECORDS SUMMARY | ~2020-03-10 | XMS | Encounter Summary ---
Demographics + + + | Address | [address] | | | [place] [address] | + + + | Home Phone | | + + + | Preferred Language | Unknown | + + + | Marital Status | | + + + | Adventist Affiliation | Unknown | + + + | Race | Unknown | + + + | Ethnic Group | Unknown | + + + Author + + + | Author | [facility] | | | and Ernestoana | + + + | Organization | [facility] | | | and [...] Team Providers + +------+ + | Care Glaze Sprayer Name | Role | Phone | + +------+ + | iTmothy Carrion MD | PCP | | + +------+ + Encounter Details +--------+ + + + + | Date | Type | Department | Care Team | Description | +--------+ + + + + | 04/13/ | Hospital | [facility] | Conversion | Cervicalgia; | | 2019 | Encounter | [facility] | Transaction, | Kyphosis of | | | | [address] | Provider Unknown | cervicothoracic | | | | [address] [place], [place] | [phone] | region, unspecified | | | | [address] | (Fax) | kyphosis type | | | | [phone] | | | +--------+ + + + [...] + + + +---------+ + + | | TK 1 T PO Q 4 H PRF | | 0 | 02/22/20 | | | acetaminophen-codein | SEVERE PAIN | | | 19 | 9 | | e (TYLENOL #3) | | | | | | | 300-30 mg per tablet | | | | | | + + + +---------+ + + | CARTIA XT 120 MG | TAKE 2 CAPSULES (240 | | 0 | 02/14/20 | | | 24 hr capsule | MG) BY MOUTH ONCE | | | 19 | 9 | | | DAILY | | | | | + + + +---------+ + + | furosemide (LASIX) | Take 60 mg by mouth | | 1 | 02/29/20 | | | 20 mg tablet | daily. | | | 19 | 0 | + + + +---------+ + + | furosemide (LASIX) | TAKE 1 TABLET BY | | 1 | 02/29/20 | | | 80 mg tablet | MOUTH ONCE DAILY | | | 19 | 9 | + + + +---------+ + + [...] & | | 0 | 02/14/20 | 04/09/202 | | (COUMADIN) 5 mg | ONE HALF) TABLETS BY | | | 19 | 0 | | tablet | MOUTH ONCE DAILY ON | | | | | | | MON TUE AND TUE | | | | | [...] [address] | | | | | | [place] [address] | | | | | | [phone] | | | | | | | | +--------+ + + + + | 04/08/ | Office | Cardiology | Del Sweeney | | | 2020 | Visit | | MD Dhaval [address] | | | | | | [address] | | | | | | [place] [address] | | | | | | [phone] | | | | | | | | +--------+ + + + + documented as of this encounter Procedures + +--------+ + + + | Procedure Name | Priori | Date/Time | Associated Diagnosis | Comments | | | ty | | | | + +--------+ + + + | XR CERVICAL SPINE 2 | Routin | 04/13/2019 | | Results for this | | OR 3 VIEWS | e | 3:44 PM | | procedure are in the | | | | PDT | | results section. | + +--------+ + + + documented in this encounter Results XR Cervical Spine 2 or 3 Views (04/13/2019 3:44 PM PDT) + + | Specimen | + + | | + + + + + | Impressions | Performed At | + + + | 1. Diffuse degenerative disc disease of the cervical spine as | | | described. 2. Minimal anterolisthesis of C2-3 without dynamic | | | change. Signed by: Charley Lopez, Wes Sign Date/Time: 04/16/2019 | | | 8:00 AM | | + + + + + + | Narrative | Performed At | + + + | CERVICAL SPINE TWO OR THREE VIEWS CLINICAL INFORMATION: Cervical | | | pain. COMPARISON: None FINDINGS: Diffuse degenerative disc disease | | | with osteophyte formation, intervertebral disc height loss, endplate | | | sclerosis is noted in the inferior cervical spine from C3 through | | | C7. C4-5 disc space is completely absent on plain radiography. | | | Vacuum phenomenon noted at C5-6. There is minimal anterolisthesis | | | of C2-3 which does not change on dynamic motion. No fracture is | | | apparent. | | + + + + + | Procedure Note | + + | Tim Garrett - 05/04/2019 9:57 AM PDT CERVICAL SPINE TWO OR THREE VIEWS | | CLINICAL INFORMATION: | | Cervical pain. | | COMPARISON: | | None | | FINDINGS: | | Diffuse degenerative disc disease with osteophyte formation, | | intervertebral disc height loss, endplate sclerosis is noted in the | | inferior cervical spine from C3 through C7. C4-5 disc space is | | completely absent on plain radiography. Vacuum phenomenon noted at | | C5-6. There is minimal anterolisthesis of C2-3 which does not change | | on dynamic motion. No fracture is apparent. | | IMPRESSION: | | 1. Diffuse degenerative disc disease of the cervical spine as | | described. | | 2. Minimal anterolisthesis of C2-3 without dynamic change. | | Signed by: Charley Lopez, Wes | | Sign Date/Time: 04/16/2019 8:00 AM | + + documented in this encounter Visit Diagnoses + + | Diagnosis | + + | Cervicalgia | + + | Kyphosis of cervicothoracic region, unspecified kyphosis type | + + documented in this encounter"
--- OUTSIDE RECORDS SUMMARY | ~2020-03-10 | XMS | Encounter Summary ---
Demographics + + + | Address | [address] | | | [place] [address] | + + + | Home Phone | | + + + | Preferred Language | Unknown | + + + | Marital Status | | + + + | Worship Affiliation | Unknown | + + + | Race | Unknown | + + + | Ethnic Group | Unknown | + + + Author + + + | Author | [facility] | | | and Ernesto[place] | + + + | Organization | [facility] | | | and [...] Team Providers + +------+ + | Care Steward/Stewardess Smoke Room Name | Role | Phone | + +------+ + | Timothy Carrion MD | PCP | | + +------+ + Encounter Details +--------+ + + + + | Date | Type | Department | Care Team | Description | +--------+ + + + + | 11/27/ | Orders Only | [facility] | [address] | | | 2019 | | [address] | | | | | [address] | [place] [address] | | | | | [place], [place] | [phone] | | | | | [address] | | | | | | [phone] | | | +--------+ + + + [...] | | | | | [place] [address] | | | | | | [phone] | | | | | | | | +--------+ + + + + | 04/08/ | Office | Cardiology | Del Sweeney | | 2019 | Visit | | MD Anam Puentes [address] | | | | | | [address] [place] | | | | | | [place] [address] | | | | | | [phone] | | | | | | | | +--------+ + + + + documented as of this encounter Procedures + +--------+ + + + | Procedure Name | Priori | Date/Time | Associated Diagnosis | Comments | | | ty | | | | + +--------+ + + + | ECHO INTERPRETATION | Routin | 11/27/2018 | | Results for this | | OF OUTSIDE FILMS | e | 6:00 PM | | procedure are in the | | | | PDT | | results section. | + +--------+ + + + documented in this encounter Results ECHO Interpretation of Outside Films (11/27/2018 6:00 PM PDT) + + | Specimen | + + | | + + + + + | Impressions | Performed At | + + + | 1. Overall left ventricular systolic function is moderately impaired | | | with, an EF between 35 - 40 %. 2. The left ventricle cavity size is | | | normal. 3. The right ventricle is normal in size. 4. The right | | | ventricular systolic function is at the low end of normal. 5. | | | Eydv-xx-owjngpkm mitral regurgitation is present. 6. Mild tricuspid | | | regurgitation present. 7. The right ventricular systolic pressure | | | (pulmonary artery systolic pressure), as measured by Doppler, is | | | 32.56mmHg. | | + + + + + + | Narrative | Performed At | + + + | Patient Name: Griffin Lambert Date of : 1945 | | | Performing Physician: Gayathri Luna MD | | | | | | INDICATIONS AFIB, VOLUME OVERLOAD, ELEVATED BNP | | | CONCLUSIONS 1. Overall left ventricular systolic | | | function is moderately impaired with, an EF between 35 - 40 %. 2. The | | | left ventricle cavity size is normal. 3. The right ventricle is | | | normal in size. 4. The right ventricular systolic function is at the | | | low end of normal. 5. Tfvn-kd-ulpcpkun mitral regurgitation is | | | present. 6. Mild tricuspid regurgitation present. 7. The right | | | ventricular systolic pressure (pulmonary artery systolic pressure), as | | | measured by Doppler, is 32.56mmHg. FINDINGS -------- ECG | | | rhythm: Atrial fibrillation. Study: A 2-dimensional transthoracic | | | echocardiogram with m-mode, spectral and color flow Doppler was | | | perfomed. Study: Definity contrast agent was used to better delineate | | | the left ventricular wall segments. Study: This was a technically | | | difficult study with suboptimal apical views. Left Ventricle: Overall | | | left ventricular systolic function is moderately impaired with, an EF | | | between 35 - 40 %. Left Ventricle: The left ventricle cavity size is | | | normal. Left Ventricle: Left ventricular wall thickness is normal. | | | Right Ventricle: The right ventricle is normal in size. Right | | | Ventricle: The right ventricular systolic function is at the low end | | | of normal. Left Atrium: The left atrium is normal in size. Right | | | Atrium: The right atrium is normal in size. Aortic Valve: Aortic | | | valve is mildly thickened. Aortic Valve: There is no evidence of | | | aortic regurgitation. Aortic Valve: The aortic valve is mildly | | | calcified. Aortic Valve: There is no evidence of aortic stenosis. | | | Mitral Valve: Normal appearing mitral valve. Mitral Valve: | | | Bowc-qf-jmvffzql mitral regurgitation is present. Tricuspid Valve: | | | The tricuspid valve appears structurally normal. Tricuspid Valve: | | | Mild tricuspid regurgitation present. Tricuspid Valve: The right | | | ventricular systolic pressure (pulmonary artery systolic pressure), as | | | measured by Doppler, is 32.56mmHg. Pulmonic Valve: The pulmonic | | | valve was not well visualized. Pericardium: There is no pericardial | | | effusion. IVC/Hepatic Veins: The inferior vena cava is normal in size | | | and collapses > 50 % with sniff, indicating normal central venous | | | pressures. Aorta: The aortic root, ascending aorta and aortic arch | | | are normal. Mass: No mass visualized Thrombus: No clot visualized | | | Thrombus: No vegetation visualized. Septum: No ASD observed. Septum: | | | No VSD observed. MEASUREMENTS Ao sinus: 3.20 | | | cm Ao st junct: 2.57 cm IVC: 2.28 cm LA Diam: 3.66 cm | | | EDV(Teich): 109.61 ml IVSd: 1.02 cm LVIDd: 4.83 cm LVPWd: | | | 0.72 cm LVOT Area: 3.45 cm2 LVOT Diam: 2.09 cm %FS: | | | 13.08 % EF(Teich): 28.05 % ESV(Teich): 78.86 ml LVIDs: | | | 4.20 cm SV(Teich): 30.75 ml RV Major: 7.42 cm RV Minor: | | | 3.10 cm LVEF MOD A2C: 32.80 % SV MOD A2C: 36.80 ml LVEF MOD | | | A4C: 40.52 % SV MOD A4C: 43.92 ml EF Biplane: 36.28 % | | | LVEDV MOD BP: 111.63 ml LVESV MOD BP: 71.13 ml LVEDV MOD A2C: | | | 112.19 ml LVLd A2C: 8.99 cm LVEDV MOD A4C: 108.38 ml LVLd | | | A4C: 8.71 cm LVESV MOD A2C: 75.39 ml LVLs A2C: 8.05 cm | | | LVESV MOD A4C: 64.46 ml LVLs A4C: 7.71 cm LAESV(A-L): 40.35 | | | ml LAESV Index (A-L): 19.40 ml/m2 LAAs A2C: 16.12 cm2 LAESV | | | A-L A2C: 41.92 ml LALs A2C: 5.26 cm LAAs A4C: 13.63 cm2 | | | LAESV A-L A4C: 34.12 ml LALs A4C: 4.62 cm RAAs: 13.40 cm2 | | | RAESV A-L: 35.97 ml RAESV MOD: 34.20 ml RALs: 4.23 cm | | | TAPSE: 1.23 cm AV maxP.74 mmHg AV meanP.33 mmHg AV | | | Vmax: 1.19 m/s AV Vmean: 0.85 m/s AV VTI: 20.10 cm RENE | | | Vmax: 2.02 cm2 RENE (VTI): 2.26 cm2 AVAI (Vmax): 0.00 cm2/m2 | | | AVAI (VTI): 0.00 cm2/m2 LVOT maxP.96 mmHg LVOT meanPG: | | | 1.18 mmHg LVSI Dopp: 21.86 ml/m2 LVSV Dopp: 45.47 ml LVOT | | | Vmax: 0.70 m/s LVOT Vmean: 0.52 m/s LVOT VTI: 13.15 cm MV | | | E Vito: 0.87 m/s MV DecT: 106.22 ms RAP: 5 mmHg RVSP: | | | 32.55 mmHg TR maxP.55 mmHg TR Vmax: 2.62 m/s RV s': | | | 0.08 m/s Locker Room Attendant: VIVIAN Authenticated by: Gayathri Luna MD | | | Report Date/Time: -- 11_[id number] | | + + + + + | Procedure Note | + + | Gerry, Rad Conversion - 04/19/2019 2:05 PM PDT Patient Name: Afua Lambert | | : 1945 Performing Physician: Gayathri Luna | | INDICATIONS A | | FIB, VOLUME OVERLOAD, ELEVATED BNP CONCLUSIONS 1. Overall left ventricular | | systolic function is moderately impaired with, an EF between 35 - 40 %.2. The left | | ventricle cavity size is normal.3. The right ventricle is normal in size.4. The right | | ventricular systolic function is at the low end of normal.5. Ffsc-jz-hsjbwmkk mitral | | regurgitation is present.6. Mild tricuspid regurgitation present.7. The right | | ventricular systolic pressure (pulmonary artery systolic pressure), as measured by | | Doppler, is 32.56mmHg. FINDINGS--------ECG rhythm: Atrial fibrillation.Study: A | | 2-dimensional transthoracic echocardiogram with m-mode, spectral and color flow Doppler | | was perfomed.Study: Definity contrast agent was used to better delineate the left | | ventricular wall segments.Study: This was a technically difficult study with suboptimal | | apical views.Left Ventricle: Overall left ventricular systolic function is moderately | | impaired with, an EF between 35 - 40 %.Left Ventricle: The left ventricle cavity size is | | normal.Left Ventricle: Left ventricular wall thickness is normal.Right Ventricle: The | | right ventricle is normal in size.Right Ventricle: The right ventricular systolic | | function is at the low end of normal.Left Atrium: The left atrium is normal in | | size.Right Atrium: The right atrium is normal in size.Aortic Valve: Aortic valve is | | mildly thickened.Aortic Valve: There is no evidence of aortic regurgitation.Aortic | | Valve: The aortic valve is mildly calcified.Aortic Valve: There is no evidence of aortic | | stenosis.Mitral Valve: Normal appearing mitral valve.Mitral Valve: Gjhi-aa-koasurjn | | mitral regurgitation is present.Tricuspid Valve: The tricuspid valve appears | | structurally normal.Tricuspid Valve: Mild tricuspid regurgitation present.Tricuspid | | Valve: The right ventricular systolic pressure (pulmonary artery systolic pressure), as | | measured by Doppler, is 32.56mmHg.Pulmonic Valve: The pulmonic valve was not well | | visualized.Pericardium: There is no pericardial effusion.IVC/Hepatic Veins: The inferior | | vena cava is normal in size and collapses > 50 % with sniff, indicating normal central | | venous pressures.Aorta: The aortic root, ascending aorta and aortic arch are | | normal.Mass: No mass visualizedThrombus: No clot visualizedThrombus: No vegetation | | visualized.Septum: No ASD observed.Septum: No VSD observed. MEASUREMENTS Ao | | sinus: 3.[address] junct: 2.57 cmIVC: 2.28 cmLA Diam: 3.66 cmEDV(Teich): | | 109.61 mlIVSd: 1.02 cmLVIDd: 4.83 cmLVPWd: 0.72 cmLVOT Area: 3.45 sh8VNTP Diam: | | 2.09 cm%FS: 13.08 %EF(Teich): 28.05 %ESV(Teich): 78.86 mlLVIDs: 4.20 | | cmSV(Teich): 30.75 mlRV Major: 7.42 cmRV Minor: 3.10 cmLVEF MOD A2C: 32.80 %SV | | MOD A2C: 36.80 mlLVEF MOD A4C: 40.52 %SV MOD A4C: 43.92 mlEF Biplane: 36.28 | | %LVEDV MOD BP: 111.63 mlLVESV MOD BP: 71.13 mlLVEDV MOD A2C: 112.19 mlLVLd A2C: | | 8.99 cmLVEDV MOD A4C: 108.38 mlLVLd A4C: 8.71 cmLVESV MOD A2C: 75.39 mlLVLs A2C: | | 8.05 cmLVESV MOD A4C: 64.46 mlLVLs A4C: 7.71 cmLAESV(A-L): 40.35 mlLAESV Index | | (A-L): 19.40 ml/m2LAAs A2C: 16.12 [id number] A-L A2C: 41.92 mlLALs A2C: 5.26 | | cmLAAs A4C: 13.63 ih1LJKKH A-L A4C: 34.12 mlLALs A4C: 4.62 cmRAAs: 13.40 | | [id number] A-L: 35.97 mlRAESV MOD: 34.20 mlRALs: 4.23 cmTAPSE: 1.23 cmAV maxPG: | | 5.74 mmHgAV meanP.33 mmHgAV Vmax: 1.19 m/Ekta Vmean: 0.85 m/Ekta VTI: 20.10 | | cmAVA Vmax: 2.02 cm2AVA (VTI): 2.26 ei9QVQG (Vmax): 0.00 cm2/m2AVAI (VTI): 0.00 | | cm2/m2LVOT maxP.96 mmHgLVOT meanP.18 mmHgLVSI Dopp: 21.86 ml/m2LVSV Dopp: | | 45.47 mlLVOT Vmax: 0.70 m/sLVOT Vmean: 0.52 m/sLVOT VTI: 13.15 cmMV E Vito: | | 0.87 m/sMV DecT: 106.22 msRAP: 5 mmHgRVSP: 32.55 mmHgTR maxP.55 mmHgTR | | Vmax: 2.62 m/sRV s': 0.08 m/s Locker Room Attendant: DBSAuthenticated by: Gayathri Luna | | MDReport Date/Time: -- [id number]:53:45 IMPRESSION: 1. Overall left ventricular | | systolic function is moderately impaired with, an EF between 35 - 40 %.2. The left | | ventricle cavity size is normal.3. The right ventricle is normal in size.4. The right | | ventricular systolic function is at the low end of normal.5. Vfzp-su-gwytdvbu mitral | | regurgitation is present.6. Mild tricuspid regurgitation present.7. The right | | ventricular systolic pressure (pulmonary artery systolic pressure), as measured by | | Doppler, is 32.56mmHg. | | | |Ao sinus: 3.20 cm | |Ao st junct: 2.57 cm | |IVC: 2.28 cm | |LA Diam: 3.66 cm | |EDV(Teich): 109.61 ml | |IVSd: 1.02 cm | |LVIDd: 4.83 cm | |LVPWd: 0.72 cm | |LVOT Area: 3.45 cm2 | |LVOT Diam: 2.09 cm | |%FS: 13.08 % | |EF(Teich): 28.05 % | |ESV(Teich): 78.86 ml | |LVIDs: 4.20 cm | |SV(Teich): 30.75 ml | |RV Major: 7.42 cm | |RV Minor: 3.10 cm | |LVEF MOD A2C: 32.80 % | |SV MOD A2C: 36.80 ml | |LVEF MOD A4C: 40.52 % | |SV MOD A4C: 43.92 ml | |EF Biplane: 36.28 % | |LVEDV MOD BP: 111.63 ml | |LVESV MOD BP: 71.13 ml | |LVEDV MOD A2C: 112.19 ml | |LVLd A2C: 8.99 cm | |LVEDV MOD A4C: 108.38 ml | |LVLd A4C: 8.71 cm | |LVESV MOD A2C: 75.39 ml | |LVLs A2C: 8.05 cm | |LVESV MOD A4C: 64.46 ml | |LVLs A4C: 7.71 cm | |LAESV(A-L): 40.35 ml | |LAESV Index (A-L): 19.40 ml/m2 | |LAAs A2C: 16.12 cm2 | |LAESV A-L A2C: 41.92 ml | |LALs A2C: 5.26 cm | |LAAs A4C: 13.63 cm2 | |LAESV A-L A4C: 34.12 ml | |LALs A4C: 4.62 cm | |RAAs: 13.40 cm2 | |RAESV A-L: 35.97 ml | |RAESV MOD: 34.20 ml | |RALs: 4.23 cm | |TAPSE: 1.23 cm | |AV maxP.74 mmHg | |AV meanP.33 mmHg | |AV Vmax: 1.19 m/s | |AV Vmean: 0.85 m/s | |AV VTI: 20.10 cm | |RENE Vmax: 2.02 cm2 | |RENE (VTI): 2.26 cm2 | |AVAI (Vmax): 0.00 cm2/m2 | |AVAI (VTI): 0.00 cm2/m2 | |LVOT maxP.96 mmHg | |LVOT meanP.18 mmHg | |LVSI Dopp: 21.86 ml/m2 | |LVSV Dopp: 45.47 ml | |LVOT Vmax: 0.70 m/s | |LVOT Vmean: 0.52 m/s | |LVOT VTI: 13.15 cm | |MV E Vito: 0.87 m/s | |MV DecT: 106.22 ms | |RAP: 5 mmHg | |RVSP: 32.55 mmHg | |TR maxP.55 mmHg | |TR Vmax: 2.62 m/s | |RV s': 0.08 m/s | | | |Locker Room Attendant: DBS | |Authenticated by: Gayathri Luna MD | |Report Date/Time: [id number]:53:45 | | | |IMPRESSION: | |1. Overall left ventricular systolic function is moderately impaired with, an EF between 35 - 40 %. | |2. The left ventricle cavity size is normal. | |3. The right ventricle is normal in size. | |4. The right ventricular systolic function is at the low end of normal. | |5. Jdxx-pd-yxwilndy mitral regurgitation is present. | |6. Mild tricuspid regurgitation present. | |7. The right ventricular systolic pressure (pulmonary artery systolic pressure), as measure d by Doppler, is 32.56mmHg. | + + documented in this encounter Visit Diagnoses Not on filedocumented in this encounter"
--- OUTSIDE RECORDS SUMMARY | ~2020-03-10 | XMS | Encounter Summary ---
Demographics + + + | Address | [address] | | | [place] [address] | + + + | Home Phone | | + + + | Preferred Language | Unknown | + + + | Marital Status | | + + + | Lutheran Affiliation | Unknown | + + + | Race | Unknown | + + + | Ethnic Group | Unknown | + + + Author + + + | Author | [facility] | | | and Ernestoana | + + + | Organization | [facility] | [...] Team Providers + +------+ + | Care Transportation Sales Consultant Name | Role | Phone | + +------+ + | Josafat Steve | PCP | | + +------+ + Encounter Details +--------+ + + + + | Date | Type | Department | Care Team | Description | +--------+ + + + + | 04/13/ | Orders Only | [facility] | Conversion | | | 2019 | | CONVERSION [address]P [address] | Transaction, | | | | | [address] | Provider Unknown | | | | | [place] | [phone] | | | | | [phone] | | | | | | [phone] | | | +--------+ + + + [...] | | | | | [place] [address] | | | | | | [phone] | | | | | | | | +--------+ + + + + | 04/08/ | Office | Cardiology | Del Sweeney | | | 2019 | Visit | | MD Anam Puentes [address] | | | | | | [address] [place] | | | | | | [place] [address] | | | | | | [phone] | | | | | | | | +--------+ + + + + documented as of this encounter Visit Diagnoses Not on filedocumented in this encounter"
--- OUTSIDE RECORDS SUMMARY | ~2020-03-10 | XMS | Encounter Summary ---
Demographics + + + | Address | [address] | | | [place] [address] | + + + | Home Phone | | + + + | Preferred Language | Unknown | + + + | Marital Status | | + + + | Jehovah'S Witness Affiliation | Unknown | + + + | Race | Unknown | + + + | Ethnic Group | Unknown | + + + Author + + + | Author | [facility] | | | and Ernesto[place] | + + + | Organization | [facility] | | | and [...] Team Providers + +------+ + | Care Ramp Service Man Name | Role | Phone | + +------+ + | Josafat Steve PCP | | + +------+ + Reason for Referral Diagnostic/Screening (Routine) + +--------+ + + + + | Status | Reason | Specialty | Diagnoses / | Referred By | Referred To | | | | | Procedures | Contact | Contact | + +--------+ + + + + | Authorized | | Cardiology | Diagnoses | Abraham, | [facility] | | | | | Atrial | Noreen Daniel, | [address] | | | | | fibrillation | PA-C [address] | [place], | | | | | , | [address] | [place] | | | | | unspecified | [place], | [address] | | | | | type (HCC) | [place] [address] | Phone: | | | | | Procedures | Phone: | [phone] | | | | | ECHO | [phone] | Fax: | | | | | Complete | Fax: | [phone] | | | | | | [phone] | | + +--------+ + + + + Reason for Visit + +--------+ + | Reason | Onset | Comments | | | Date | | + +--------+ + | Lab Order | 02/10/ | | | | 2020 | | + +--------+ + Encounter Details +--------+ + + + + | Date | Type | Department | Care Team | Description | +--------+ + + + + | 02/10/ | Telephone | [facility] | Noreen Rosario | Lab Order | | 2019 | | CARDIOLOGY [address] | [address] | | | | | [address] [place], | [address] [place] | | | | | [place] [address] | [place] [address] | | | | | [phone] | [phone] | | | | | | | [...] Telephone Encounter - Jaiden Velazquez RN - 02/12/2020 8:47 AM PDTEcho and BNP order ed............................................Jaiden Velazquez RN, on 02/12/20 at 8:47 AM PDT elephone Jolly Dove, School Janitor - 02/11/2020 3:46 PM PDTLVM for the patient to gi ve us a call back regarding his labs and echocardiogram (atrial fibrillation). Patient is ne eding to complete his BNP prior to his appointment with Noreen Rosario on 02/13/20. I am faxing the orders to [facility] so he can get these done. documented in this encounter Plan of Treatment [...] | | | | | [place] [address] | | | | | | [phone] | | | | | | | | +--------+ + + + + | 04/08/ | Office | Cardiology | Del Sweeney | | 2019 | Visit | | MD Dhaval [address] | | | | | | [address] [place] | | | | | | [place] [address] | | | | | | [phone] | | | | | | | | +--------+ + + + + + + +--------+ + + | Name | Type | Priori | Associated Diagnoses | Order Schedule | | | | ty | | | + + +--------+ + + | ECHO Complete | Echocardiog | Routin | Atrial | Expected: | | | topher | e | fibrillation, | 02/12/2020, Expires: | | | | | unspecified type | 02/11/2021 | | | | | (HCC) | | + + +--------+ + + | B Type Natriuretic | Lab | Routin | Chronic systolic | Expected: | | Peptide | | e | congestive heart | 02/12/2020, Expires: | | | | | failure (HCC) | 02/11/2021 | + + +--------+ + + documented as of this encounter Visit Diagnoses + + | Diagnosis | + + | Atrial fibrillation, unspecified type (HCC) - Primary | + + | Chronic systolic congestive heart failure (HCC) Chronic systolic heart failure | + + documented in this encounter"
--- OUTSIDE RECORDS SUMMARY | ~2020-03-10 | XMS | Encounter Summary ---
Demographics + + + | Address | [address] | | | [place] [address] | + + + | Home Phone | | + + + | Preferred Language | Unknown | + + + | Marital Status | | + + + | Yarsani Affiliation | Unknown | + + + | Race | Unknown | + + + | Ethnic Group | Unknown | + + + Author + + + | Author | [facility] | | | and [place] | + + + | Organization | [facility] | | | and [facility] [...] Team Providers + +------+ + | Care Instructional Developer Name | Role | Phone | + +------+ + | Josafat Steve PCP | | + +------+ + Encounter Details +--------+ + + + + | Date | Type | Department | Care Team | Description | +--------+ + + + + | 07/09/ | Abstract | [facility] | Del Sweeney | | | 2018 | | CARDIOLOGY [address] | MD [address] | | | | [place], | [address] [place] | | | | | [place] [address] | [place] [id number] | | | | | [phone] | [phone] | | | | | | | [...] | | | | | [place] [id number] | | | | | | [phone] | | | | | | | | +--------+ + + + + | 04/08/ | Office | Cardiology | Del Sweeney | | | 2019 | Visit | | MD Dhaval [address] | | | | | | [address] [place] | | | | | | [place] [address] | | | | | | [phone] | | | | | | | | +--------+ + + + + documented as of this encounter Procedures + +--------+ + + + | Procedure Name | Priori | Date/Time | Associated Diagnosis | Comments | | | ty | | | | + +--------+ + + + | EXTERNAL LAB: [facility] | Routin | 02/13/2019 | | Results for this | | | e | | | procedure are in the | | | | | | results section. | + +--------+ + + + | EXTERNAL LAB: | Routin | 02/13/2019 | | Results for this | | GLUCOSE | e | | | procedure are in the | | | | | | results section. | + +--------+ + + + | EXTERNAL LAB: | Routin | 02/13/2019 | | Results for this | | MAGNESIUM | e | | | procedure are in the | | | | | | results section. | + +--------+ + + + | EXTERNAL LAB: | Routin | 02/13/2019 | | Results for this | | CALCIUM | e | | | procedure are in the | | | | | | results section. | + +--------+ + + + | EXTERNAL LAB: CARBON | Routin | 02/13/2019 | | Results for this | | DIOXIDE | e | | | procedure are in the | | | | | | results section. | + +--------+ + + + | EXTERNAL LAB: | Routin | 02/13/2019 | | Results for this | | CHLORIDE | e | | | procedure are in the | | | | | | results section. | + +--------+ + + + | EXTERNAL LAB: | Routin | 02/13/2019 | | Results for this | | POTASSIUM | e | | | procedure are in the | | | | | | results section. | + +--------+ + + + | EXTERNAL LAB: SODIUM | Routin | 02/13/2019 | | Results for this | | | e | | | procedure are in the | | | | | | results section. | + +--------+ + + + | EXTERNAL LAB: | Routin | 02/13/2019 | | Results for this | | PROTIME INR | e | | | procedure are in the | | | | | | results section. | + +--------+ + + + | EXTERNAL LAB: EGFR | Routin | 02/13/2019 | | Results for this | | | e | | | procedure are in the | | | | | | results section. | + +--------+ + + + | EXTERNAL LAB: | Routin | 02/13/2019 | | Results for this | | CREATININE | e | | | procedure are in the | | | | | | results section. | + +--------+ + + + | COMPREHENSIVE | Routin | 02/13/2019 | | Results for this | | METABOLIC PANEL | e | | | procedure are in the | | | | | | results section. | + +--------+ + + + documented in this encounter Results Comprehensive Metabolic Panel (02/13/2019) + +-------+ + + + | Component | Value | Ref Range | Performed | Pathologist | | | | | At | Signature | + +-------+ + + + | Bun/Creatin | 19.5 | | | | | ine | | | | | + +-------+ + + + | Anion Gap | 13 | mmol/L | | | + +-------+ + + + + + | Specimen | + + | Blood | + + External Lab: BUN (02/13/2019) + +--------+ + + + | Component | Value | Ref Range | Performed | Pathologist | | | | | At | Signature | + +--------+ + + + | BUN, | 24 (A) | 23 | | | | External | | | | | + +--------+ + + + External Lab: Glucose (02/13/2019) + +-------+ + + + | Component | Value | Ref Range | Performed | Pathologist | | | | | At | Signature | + +-------+ + + + | Glucose, | 92 | | | | | External | | | | | + +-------+ + + + External Lab: Magnesium (02/13/2019) + +-------+ + + + | Component | Value | Ref Range | Performed | Pathologist | | | | | At | Signature | + +-------+ + + + | Magnesium, | 2.2 | | | | | External | | | | | + +-------+ + + + External Lab: Calcium (02/13/2019) + +-------+ + + + | Component | Value | Ref Range | Performed | Pathologist | | | | | At | Signature | + +-------+ + + + | Calcium, | 9.2 | | | | | External | | | | | + +-------+ + + + External Lab: Carbon Dioxide (02/13/2019) + +-------+ + + + | Component | Value | Ref Range | Performed | Pathologist | | | | | At | Signature | + +-------+ + + + | Carbon | 30 | | | | | Dioxide, | | | | | | External | | | | | + +-------+ + + + External Lab: Chloride (02/13/2019) + +-------+ + + + | Component | Value | Ref Range | Performed | Pathologist | | | | | At | Signature | + +-------+ + + + | Chloride, | 95 | | | | | External | | | | | + +-------+ + + + External Lab: Potassium (02/13/2019) + +-------+ + + + | Component | Value | Ref Range | Performed | Pathologist | | | | | At | Signature | + +-------+ + + + | Potassium, | 3.4 | | | | | External | | | | | + +-------+ + + + External Lab: Sodium (02/13/2019) + +-------+ + + + | Component | Value | Ref Range | Performed | Pathologist | | | | | At | Signature | + +-------+ + + + | Sodium, | 135 | | | | | External | | | | | + +-------+ + + + External Lab: Meng INR (02/13/2019) + +---------+ + + + | Component | Value | Ref Range | Performed | Pathologist | | | | | At | Signature | + +---------+ + + + | INR, | 2.1 (A) | 0.9 - 1.2 | | | | External | | | | | + +---------+ + + + | PT, | 25.9 | | | | | External | | | | | + +---------+ + + + + + | Specimen | + + | Blood | + + External Lab: eGFR (02/13/2019) + +-------+ + + + | Component | Value | Ref Range | Performed | Pathologist | | | | | At | Signature | + +-------+ + + + | eGFR, | 57 | | | | | External | | | | | + +-------+ + + + + + | Specimen | + + | Blood | + + External Lab: Creatinine (02/13/2019) + +-------+ + + + | Component | Value | Ref Range | Performed | Pathologist | | | | | At | Signature | + +-------+ + + + | Creatinine, | 1.23 | | | | | External | | | | | + +-------+ + + + + + | Specimen | + + | Blood | + + documented in this encounter Visit Diagnoses Not on filedocumented in this encounter"
[~2020-03-10 20:09] MED LIST changes: +ACETAMINOPHEN-1 EAC1 PO; +COUMADIN5 MG PO; +CYCLOBENZAPRINE10 MG PO; +DILTIAZEM 24HR120 M1 PO; +FUROSEMIDE20 MG PO; +FUROSEMIDE80 MG PO; +POTASSIUM CHLO20 ME1 PO
--- OUTSIDE RECORDS SUMMARY | 2020-03-10 20:12 | XMS ---
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 Care History Medical/Surgical 11/28/2018 [facility] - Patient is currently established with [facility]. If patient is seen in the ED during business hours. Please contact CHWs at [facility]. Care Recommendation: This patient has had 5 [...] providing care. E.D. VISIT COUNT (12 MO.) [address] [facility] [address] [facility] TOTAL 2 NOTE: Visits indicate total known visits. ED/UCC VISIT TRACKING (12 MO.) 03/10/2020 20:[facility] TYPE: Emergency COMPLAINT: - FOOT PAIN/SWELLING 12/05/2019 13:22 [facility] [place] TYPE: Emergency DIAGNOSES: - Unspecified atrial fibrillation - Tachycardia INPATIENT VISIT TRACKING (12 MO.) [facility] DIAGNOSES: - Unspecified atrial fibrillation - Acute on chronic systolic (congestive) heart failure - Essential (primary) hypertension [id number]
[2020-03-18] MEDS ORDERED: METOPROLOL SUC200 MG PO (13:15)
== END 2020-03-10 21:37 | disposition home or self-care (01) ==
LOC: ED 20:09
DX: M79.661 Pain in right lower leg (principal); I48.91 Unspecified atrial fibrillation; I10 Essential (primary) hypertension; E78.5 Hyperlipidemia, unspecified; Z87.891 Personal history of nicotine dependence; Z79.899 Other long term (current) drug therapy
CPT/HCPCS: 93971; 99283-25